=== PATIENT | female | born 1960 | race Caucasian/White ===

== ENCOUNTER 2016-07-26 11:05 | Inpatient (IN) | payer OTHER, MEDICAID ==
--- NOTE | 2016-07-26 11:17 | EDPHY ---
H & P Stated Complaint: High blood sugar Source: Patient, EMS, alf records - Medical/Surgical History Hx Diabetes: Yes - Social History Smoking Status: Former smoker Time Seen by Provider: 07/26/16 11:06 HPI/ROS: CHIEF COMPLAINT: High blood sugar HISTORY OF PRESENT ILLNESS: This is a 56-year-old female brought in by ambulance from alf. The EMS reports nursing facility stated patient missed dialysis yesterday, high blood sugar this morning glucometer at nursing facility read " high", 10 units of regular insulin at 0900. EMS arrival blood glucose fingerstick at 10:52 am read (521). Patient states that she just has not been feeling very well since yesterday with decreased PO intake. Denies any chest pain or shortness of breath. Patient states she still is able to produce urine with her renal failure. Patient states her normal days for dialysis are Sunday REVIEW OF SYSTEMS: Constitutional: Chills, decreased PO intake, generalized weakness Eyes: No visual changes ENT: No sore throat. Respiratory: No shortness of breath Cardiac: No chest pain Gastrointestinal: Positive nausea Genitourinary: No hematuria Musculoskeletal: No back pain, rib pain due to fracture Skin: No rash Neurological: No headache (Dona Mari) - Physical Exam Exam: General Appearance: Nontoxic-appearing Eyes: Pupils equal and round no pallor or injection. ENT, Mouth: Mucous membranes dry Respiratory: There are no retractions, lungs are clear to auscultation. Cardiovascular: Regular rate and rhythm. Dialysis port noted no erythema Gastrointestinal: Abdomen is soft and nontender, no masses Neurological: Awake, slow to answer questions, no distress Skin: Warm and dry, no rashes. No diaphoresis Musculoskeletal: Neck is supple nontender. Right-sided rib tenderness Extremities: Fistula noted to left upper extremity, some ecchymoses noted. Positive CMS intact Psychiatric: Patient is oriented X 3, there is no agitation. (Dona Mari) Constitutional: Initial Vital Signs Temperature (C) 36.4 C 07/26/16 11:17 Heart Rate 70 07/26/16 11:17 Respiratory Rate 16 07/26/16 11:17 Blood Pressure 117/64 07/26/16 11:17 O2 Sat (%) 99 07/26/16 11:17 O2 Delivery Mode Room Air Allergies/Adverse Reactions: meperidine HCl [From Demerol] Allergy (Intermediate, Verified 09/01/13 15:37) PARANOID, HALLUCINATIONS sulfamethoxazole [From Bactrim] Allergy (Verified 07/26/16 11:27) trimethoprim [From Bactrim] Allergy (Verified 07/26/16 11:27) Home Medications: Medication Instructions Recorded Amlodipine Besylate [Norvasc] 5 mg PO DAILY 07/26/16 Aspirin EC [Aspirin EC 81 mg (*)] 81 mg PO DAILY 07/26/16 Calcium Acetate [Phoslo (*)] 667 mg PO TID 07/26/16 Calcium Carbonate 600 mg PO TIDMEAL 07/26/16 Escitalopram Oxalate [Lexapro] 20 mg PO DAILY 07/26/16 Famotidine [Pepcid 20 MG (*)] 20 mg PO DAILY 07/26/16 Ferrous Sulfate [Ferrous Sulf 325 325 mg PO DAILY 07/26/16 MG (*)] Herbals/Supplements -Info Only 1 ea PO DAILY 07/26/16 Insulin Glargine [Lantus 100 4 units SC DAILY 07/26/16 UNITS/ML (*)] Insulin Glargine [Lantus 100 6 units SC HS 07/26/16 UNITS/ML (*)] Insulin Lispro [Humalog] 6 unit SQ BID@07,12 07/26/16 Insulin Lispro [Humalog] 8 unit SQ DAILY@1800 07/26/16 Losartan Potassium [Cozaar] 100 mg PO DAILY 07/26/16 Metoprolol Tartrate [Lopressor 100 100 mg PO BID 07/26/16 mg (*)] Ondansetron Odt [Zofran Odt 4 mg 4 mg PO Q4 PRN 07/26/16 (*)] Polyethylene Glycol 3350 [Miralax 17 gm PO DAILY PRN 07/26/16 17 gm (*)] Pregabalin [Lyrica 50mg (*)] 50 mg PO HS 07/26/16 Simvastatin [Zocor] 20 mg PO HS 07/26/16 hydrALAZINE [Apresoline 10 mg (*)] 35 mg PO TID 07/26/16 levETIRAcetam [Keppra 500 mg (*)] 500 mg PO DAILY 07/26/16 traMADol [Ultram 50 mg (*)] 50 mg PO Q6 PRN 07/26/16 Medical Decision Making - Diagnostics EKG Interpretation: 12 lead EKG is interpreted in Trace master View by emergency department physician. (Edita Agarwal) ED Course/Re-evaluation: Discussed plan of care: IV, CBC, Chem 7, magnesium, phosphorus, EKG, 1405: Spoke with Yanely RN at nursing facility, the patient's polarity tester is Dr. Polanco with [facility]. 1410: Spoke with Dr. Sim with [facility], patient will be set up for dialysis in the morning 1425: Spoke with Dr. Perez, patient admitted ICU on insulin drip, DKA protocol. Patient aware of admitting status (Dona Mari) Differential Diagnosis: Differential diagnosis considered but not limited to altered mental status due to cva, [place], and hypertensive crisis (Dona Mari) Other Provider: This patient was evaluated and managed by the nurse practitioner in conjunction with me. My history and physical exam findings are as follows: This is a 56- year-old resident of [facility] who arrives by ambulance. She has a history of end-stage renal disease and missed yesterday's dialysis, also hypertension, diabetes mellitus, hyperlipidemia, and depression. She was noted to be hyperglycemic at [facility] this morning was transferred to the emergency department. Blood sugars here have been elevated and she is acidotic. General Appearance: Slightly sleepy but arouses to voice. Vital signs reviewed. Eyes: Pupils equal and round, no conjunctival injection, no discharge. Anicteric. ENT, Mouth: Mucous membranes are dry, no oropharyngeal erythema or edema. Neck: No lymphadenopathy, supple. Respiratory: Lungs are clear to auscultation; no wheezes, rales, or rhonchi. Cardiovascular: Regular rate and rhythm; 2/6 systolic murmur, rub, or gallop. Gastrointestinal: Abdomen is soft and nontender, no masses or organomegaly, bowel sounds normal. Skin: Warm and dry, no rashes on exposed skin, normal color. Back: Nontender to palpation over the thoracolumbar spine. No CVAT. Extremities: No lower extremity edema, no calf tenderness or swelling. Neurological: Sleepy but arouses easily. JESSICA. EOMI. Facial expression symmetric. Tongue midline. Moving all four extremities easily and equally. Psychiatric: Flat affect. I reviewed laboratory findings. In the emergency department she was started on an insulin drip. I think that her mild somnolence is secondary hyperglycemia and her abnormal kidney function. I have not found evidence of infection. She Has not complaining of chest pain. She is not short of breath and has a normal lung exam. She is being admitted to the ICU on an insulin drip. She missed yesterday's dialysis and dialysis is being arranged for her. (Edita Agarwal) - Data Points Laboratory Results: Laboratory Results 07/26/16 11:25 07/26/16 13:14 Medications Given: Discontinued Medications Calcium Acetate (Phoslo) 667 mg PO TID LANCE Stop: 01/22/17 21:59 Last Admin: 07/27/16 11:36 Dose: Not Given Sodium Chloride (Ns) 1,000 mls @ 0 mls/hr IV ONCE ONE PRN Reason: Wide Open Stop: 07/26/16 13:48 Last Admin: 07/26/16 14:19 Dose: 1,000 mls Insulin Human Regular 100 unit / Miscellaneous Medication 1 ea/ Sodium Chloride 101 mls @ 2 mls/hr IV EDNOW ONE PRN Reason: Protocol Stop: 07/28/16 16:16 Last Admin: 07/26/16 19:25 Dose: Not Given Insulin Human Regular 100 unit (/ Sodium Chloride) 101 mls @ 2 mls/hr IV CONT LANCE Stop: 01/22/17 14:59 Last Admin: 07/26/16 15:39 Dose: 101 mls Insulin Glargine (Lantus Syringe) 4 units SC HS LANCE Stop: 01/23/17 20:59 Last Admin: 07/28/16 22:27 Dose: 4 units Insulin Human Lispro (Humalog Lispro) 2 - 10 unit SC TIDMEAL LANCE PRN Reason: Protocol Stop: 01/23/17 07:59 Last Admin: 07/27/16 11:36 Dose: Not Given Insulin Human Regular (Humulin R) 10 unit IVP EDNOW ONE Stop: 07/26/16 13:48 Last Admin: 07/26/16 14:19 Dose: 10 units Ondansetron HCl (Zofran) 4 mg IVP EDNOW ONE Stop: 07/26/16 12:53 Last Admin: 07/26/16 13:20 Dose: 4 mg Sodium Bicarbonate (Sodium Bicarbonate) 50 meq IVP Q8 LANCE Stop: 07/27/16 14:01 Last Admin: 07/27/16 14:18 Dose: Not Given Departure - Departure Disposition: [facility]
--- NOTE | 2016-07-26 11:36 | CPEKG ---
Heart Rate: 70 RR Interval: 857 P-R Interval: 148 QRSD Interval: 88 QT Interval: 456 QTC Interval: 493 P [place]: 41 QRS [place]: 58 T Wave [place]: 53 EKG Severity - ABNORMAL ECG - EKG Impression: SINUS RHYTHM EKG Impression: ST DEPRESSION, CONSIDER ISCHEMIA, LAT LEADS EKG Impression: MINIMAL ST ELEVATION, INFERIOR LEADS EKG Impression: BORDERLINE PROLONGED QT INTERVAL Electronically Signed By: Edita Agarwal 26-Jul-2016 15:19:21
[2016-07-26 11:44] LABS: % IMMATURE GRANULYOCYTES 0.2 % (0.0-1.1); ABSOLUTE IMMATURE GRANULOCYTES 0.01 10^3/uL (0.00-0.10); ADD DIFF? NO; ADD MORPH? NO; ADD SCAN? NO; ATYPICAL LYMPHOCYTE FLAG 0 (0-99); FRAGMENT RBC FLAG 0 (0-99); HEMATOCRIT 38.6 % (38.0-47.0); HEMOGLOBIN 12.7 g/dL (12.6-16.3); LEFT SHIFT FLG 0 (0-99); LIPEMIA HEMOLYSIS FLAG 80 (0-99); MEAN CELL HEMOGLOBIN 31.3 pg (27.9-34.1); MEAN CELL HEMOGLOBIN CONCENTR. 32.9 g/dL (32.4-36.7); MEAN CELL VOLUME 95.1 fL (81.5-99.8); MEAN PLATELET VOLUME 9.8 fL (8.7-11.7); PLATELET CLUMPS FLAG 0 (0-99); PLATELET COUNT 278 10^3/uL (150-400); RED BLOOD CELL COUNT 4.06 10^6/uL (4.18-5.33); RED CELL DISTRIBUTION WIDTH 15.3 % (11.5-15.2)
[2016-07-26] MEDS ORDERED: ONDANSETRON 4 MG/2 ML VIAL IVP ONE (12:52)
[2016-07-26 13:25] LABS: ANION GAP 13 mEq/L (8-16); CALCIUM 9.4 mg/dL (8.5-10.4); CARBON DIOXIDE 16 mEq/l (22-31); CHLORIDE 97 mEq/L (97-110); GLOMERULAR FILTRATION RATE 5; GLUCOSE 423 mg/dL (70-100); MAGNESIUM 2.7 mg/dL (1.6-2.3); POTASSIUM 5.7 mEq/L (3.5-5.2); SODIUM 126 mEq/L (134-144)
[2016-07-26 13:33] LABS: CREATININE 8.4 mg/dL (0.6-1.0)
[2016-07-26] MEDS ORDERED: NS 1,000 ML IV ONE (13:47)
[2016-07-26] MEDS ORDERED: INSULIN REGULAR HUMAN 100 UNIT, COSIGN. REQUIRED 1 EA in NS 100 ML IV ONE (13:47)
[2016-07-26] MEDS ORDERED: INSULIN REGULAR HUMAN 100 UNIT/ML IVP ONE (13:47)
[2016-07-26] MEDS ORDERED: ACETAMINOPHEN 325 MG TAB PO PRN (14:40)
[2016-07-26] MEDS ORDERED: ONDANSETRON DISINTEGRATING 4 MG TAB PO PRN (14:40)
[2016-07-26] MEDS ORDERED: INSULIN REGULAR HUMAN 100 UNIT in NS 100 ML IV SCH (15:00)
--- NOTE | 2016-07-26 15:17 | GHP ---
[f rep st] HISTORY AND PHYSICAL DATE OF ADMISSION: 07/26/2016 CHIEF COMPLAINT: Hyperkalemia. HISTORY OF PRESENT ILLNESS: This is a 56-year-old female who is brought in from [facility] due to hyperglycemia. She is a poor historian. She is quite somnolent. She tells me that she has been sick for the past few days, vomited (she cannot tell me how many times), and has had some diarrhea and some abdominal pain. Apparently her glucose was checked at [facility], and it was greater than 500. She received 10 units of regular insulin IV. Recheck was 487. Her initial potassium was 6.1. She was thus transported to the emergency department. PAST MEDICAL/SURGICAL HISTORY: 1. End-stage renal disease. 2. Diabetes. 3. Hypertension. 4. Depression. 5. Possible seizure disorder. 6. Hyperlipidemia. MEDICATIONS: Please see medication reconciliation. ALLERGIES: Meperidine, sulfamethoxazole, trimethoprim. FAMILY HISTORY: No renal disease. SOCIAL HISTORY: She lives at [facility]. She is unable to tell me how long she has lived here. She says she does not drink or smoke. REVIEW OF SYSTEMS: 10-point review of systems is conducted and is negative except per HPI. PHYSICAL EXAMINATION: VITAL SIGNS: Blood pressure 117/64, heart rate 70, respiration rate 16, satting 99% on room air, temperature 36.4. GENERAL: The patient is a somnolent female who is arousable but falls asleep when I am talking to her. HEENT: Normocephalic, atraumatic. CARDIOVASCULAR: Regular rate and rhythm. She has a prominent 2/6 systolic murmur. PULMONARY: Lungs clear to auscultation bilaterally. She does not have any increased work of breathing. ABDOMEN: Soft, nontender, nondistended. SKIN: No rash. : No Blake. NEUROLOGIC: Alert and oriented x3 when she wakes up. Her cranial nerves 2-12 are intact. She has motor intact in all 4 extremities. She does not have a focal neurologic exam. PSYCHIATRIC: Normal mood and affect. CHEST : A left-sided tunneled catheter in place. LABORATORY DATA: Sodium 126, potassium 5.7, bicarb is 16, creatinine 8.4, glucose is 423. CBC is relatively unremarkable. DATA: 1. I discussed this with Dona Mari in the emergency department. Will admit to the ICU for an insulin drip. 2. EKG, which I personally viewed and interpreted, shows sinus rhythm. There is scooped ST depression in leads I and L. IMPRESSION: This is a 56-year-old who presents with encephalopathy and hyperglycemia. 1. Encephalopathy: Unclear what the etiology of this is. Also unclear what her baseline is, though I will assume this is acute. May be due to her metabolic abnormalities. She missed dialysis yesterday. Will do basic infectious and ischemic workup here. Will get a chest x-ray. Check troponins. Will also get a non-contrast head CT. 2. Hyperglycemia: She is also acidotic. I do not really think this is diabetic ketoacidosis; the acidosis may be from her renal disease. Agree with insulin drip and frequent finger stick glucose checks. I will not place her on the diabetic ketoacidosis protocol, as this would clearly volume overload her given her dialysis. 3. Hyperkalemia: Likely due to acidosis and missing dialysis yesterday. Dr. Higgins has been consulted. Plan is to dialyze her tomorrow. She is getting insulin currently. Will give her bicarb q.8. Will check q.4 basic metabolic panels. 4. Abnormal ECG: will trend trops. No chest pain now. 5. End-stage renal disease: Dialysis tomorrow. She missed yesterday. 6. Diabetes mellitus: I assume this is type 2, though it is unclear. Insulin as above. She takes approximately 20-25 units total daily at [facility]. 7. Hypertension: Will continue her antihypertensives. /[id number]/MODL MTDD
[2016-07-26] MEDS ORDERED: ALTEPLASE 2 MG VIAL IVP PRN (17:00)
[2016-07-26] MEDS ORDERED: POLYETHYLENE GLYCOL 3350 17 GM PKT PO PRN (17:03)
[2016-07-26] MEDS: ONDANSETRON 4 MG/2 ML VIAL IVP PRN (17:38)
[2016-07-26] MEDS: CALCIUM CARBONATE 500 MG TAB PO SCH (17:56)
[2016-07-26] MEDS ORDERED: CALCIUM CARBONATE 600 MG PO SCH (18:00)
[2016-07-26] MEDS ORDERED: IOPAMIDOL (ISOVUE-300) 100 ML BTL IV ONE (18:19)
[2016-07-26 19:01] LABS: ALANINE AMINOTRANSFERASE 27 IU/L (9-52); ALBUMIN 3.2 g/dL (3.5-5.0); ALKALINE PHOSPHATASE 98 IU/L (38-126); ANION GAP 11 mEq/L (8-16); ASPARTATE AMINOTRANSFERASE 16 IU/L (14-46); BILIRUBIN,TOTAL 0.5 mg/dL (0.1-1.4); CALCIUM 8.9 mg/dL (8.5-10.4); CARBON DIOXIDE 16 mEq/l (22-31); CHLORIDE 104 mEq/L (97-110); GLOMERULAR FILTRATION RATE 5; GLUCOSE 83 mg/dL (70-100); POTASSIUM 5.2 mEq/L (3.5-5.2); SODIUM 131 mEq/L (134-144); TOTAL PROTEIN 6.3 g/dL (6.3-8.2)
[2016-07-26 19:05] LABS: CREATININE 7.8 mg/dL (0.6-1.0)
[2016-07-26] MEDS: METOPROLOL TARTRATE 100 MG TAB PO SCH ×2 (20:52→22:36)
[2016-07-26] MEDS: CALCIUM ACETATE 667 MG CAP PO SCH ×2 (20:52→22:35)
[2016-07-26] MEDS: PREGABALIN 50 MG CAP PO SCH ×2 (20:53→22:36)
[2016-07-26] MEDS: HEPARIN 5,000 UNIT/0.5 ML SYR SC SCH (20:53)
[2016-07-26] MEDS: ATORVASTATIN CALCIUM 10 MG TAB PO SCH ×2 (20:53→22:34)
[2016-07-26] MEDS: SODIUM BICARBONATE 50 MEQ/50 ML SYR IVP SCH (20:54)
[2016-07-26] MEDS: hydrALAZINE 10 MG TAB PO SCH ×2 (20:54→22:36)
[2016-07-26] MEDS ORDERED: NON-FORMULARY NEW DRUG (Simvastatin [Zocor] 20 MG) PO SCH (21:00)
[2016-07-26] MEDS ORDERED: D50W 25 GM/50 ML SYR IVP ONE (21:23)
[2016-07-26] MEDS ORDERED: PARAMETERS MISC PRN (21:40)
[2016-07-26] MEDS: D50W 25 GM/50 ML SYR IVP PRN (22:38)
[2016-07-27 02:04] LABS: ANION GAP 15 mEq/L (8-16); CALCIUM 8.8 mg/dL (8.5-10.4); CARBON DIOXIDE 16 mEq/l (22-31); CHLORIDE 104 mEq/L (97-110); GLOMERULAR FILTRATION RATE 5; GLUCOSE 171 mg/dL (70-100); POTASSIUM 5.5 mEq/L (3.5-5.2); SODIUM 135 mEq/L (134-144)
[2016-07-27 02:14] LABS: CREATININE 8.4 mg/dL (0.6-1.0)
[2016-07-27 05:09] LABS: % IMMATURE GRANULYOCYTES 0.2 % (0.0-1.1); ABSOLUTE IMMATURE GRANULOCYTES 0.01 10^3/uL (0.00-0.10); ADD DIFF? NO; ADD MORPH? NO; ADD SCAN? NO; ATYPICAL LYMPHOCYTE FLAG 10 (0-99); FRAGMENT RBC FLAG 0 (0-99); HEMATOCRIT 34.3 % (38.0-47.0); HEMOGLOBIN 10.7 g/dL (12.6-16.3); LEFT SHIFT FLG 0 (0-99); LIPEMIA HEMOLYSIS FLAG 80 (0-99); MEAN CELL HEMOGLOBIN 29.8 pg (27.9-34.1); MEAN CELL HEMOGLOBIN CONCENTR. 31.2 g/dL (32.4-36.7); MEAN CELL VOLUME 95.5 fL (81.5-99.8); MEAN PLATELET VOLUME 9.5 fL (8.7-11.7); PLATELET CLUMPS FLAG 0 (0-99); PLATELET COUNT 254 10^3/uL (150-400); RED BLOOD CELL COUNT 3.59 10^6/uL (4.18-5.33); RED CELL DISTRIBUTION WIDTH 15.2 % (11.5-15.2)
[2016-07-27 05:31] LABS: ALANINE AMINOTRANSFERASE 29 IU/L (9-52); ALKALINE PHOSPHATASE 102 IU/L (38-126); ANION GAP 13 mEq/L (8-16); ASPARTATE AMINOTRANSFERASE 13 IU/L (14-46); BILIRUBIN,TOTAL 0.5 mg/dL (0.1-1.4); CALCIUM 8.7 mg/dL (8.5-10.4); CARBON DIOXIDE 16 mEq/l (22-31); CHLORIDE 102 mEq/L (97-110); GLOMERULAR FILTRATION RATE 5; GLUCOSE 259 mg/dL (70-100); POTASSIUM 5.8 mEq/L (3.5-5.2); SODIUM 131 mEq/L (134-144); TOTAL PROTEIN 5.9 g/dL (6.3-8.2)
[2016-07-27 05:44] LABS: CREATININE 8.4 mg/dL (0.6-1.0)
[2016-07-27] MEDS ORDERED: PARAMETERS MISC PRN (05:49)
[2016-07-27] MEDS ORDERED: D50W 25 GM/50 ML SYR IVP PRN ×2 (05:49→16:10)
[2016-07-27] MEDS: INSULIN LISPRO 100 UNIT/1 ML VIAL STANDARD SC SCH ×2 (06:27→11:36)
[2016-07-27] MEDS: HEPARIN 5,000 UNIT/0.5 ML SYR SC SCH ×3 (06:27→21:10)
[2016-07-27] MEDS: SODIUM BICARBONATE 50 MEQ/50 ML SYR IVP SCH ×2 (06:38→14:18)
[2016-07-27] MEDS ORDERED: NON-FORMULARY NEW DRUG (Escitalopram Oxalate [Lexapro] 20 MG) PO SCH (09:00)
[2016-07-27] MEDS: D50W 25 GM/50 ML SYR IVP PRN (09:57)
--- NOTE | 2016-07-27 10:24 | SOAPPROG ---
SOAP Progress Note Assessment/Plan: Assessment:Plan: ESRD-stable on hd -plan for next Hd on Sunday -typically is Sa at [facility] [phone] Access-via tunneled catheter -resting LUE AVF DKA-recurrent theme for this patient in spite of being in nursing facility -CPM -this often coincides with some sort of infection -history of recurrent C diff -avoid empiric use of broad-spectrum abx Neuro-appears to be a little encephalopathic from recent events -she had a prolonged period of encephalopathy that slowly cleared in the past -I would expect her to do the same this time as her sugars stabilize Dispo-pending 07/27/16 10:24 Subjective: stable on dialysis Objective: Vital Signs Temp Pulse Resp BP Pulse Ox 36.6 C 74 12 165/84 H 98 07/27/16 07:47 07/27/16 07:47 07/27/16 07:47 07/27/16 07:47 07/27/16 07:47 Laboratory Results 07/27/16 04:55 07/27/16 04:55 07/26/16 07/27/16 07/28/16 05:59 05:59 05:59 Intake Total 1504 Balance 1504 Physical Exam - Physical Exam General Appearance: alert, no apparent distress EENT: normal ENT inspection Neck: normal inspection Respiratory: lungs clear, normal breath sounds, No respiratory distress Cardiac/Chest: regular rate, rhythm Abdomen: normal bowel sounds, non-tender, soft Extremities: swelling (trace) ICD10 Worksheet Patient Problems: Problems Problem Status Onset ESRD (end stage renal disease) Acute - ICD10 Problem Qualifiers (1) ESRD (end stage renal disease)
--- NOTE | 2016-07-27 11:31 | HOSPPROG ---
Hospitalist Progress Note Assessment/Plan: #Metabolic encephalopathy: related to hyperglycemia. No neuro deficits on my exam #ESRD: HD today #Hyperglycemia: was on insulin gtt outpatient. Appears to have had several hospitalizations due to DKA #Hyperkalemia: HD today #Hyponatremia: resolved #Accelerated HTN: has been off meds for past 2 days. Restart home meds #Metabolic anion gap acidosis: due to hyperglycemia/ESRD #Diet: awaiting speech eval #DVT ppx: SQH #Disp: warrant inpt admission with acute hyperglycemia, hyperkalemia Subjective: no pain, SOB Objective: Vital Signs Temp Pulse Resp BP Pulse Ox 37.3 C 84 14 196/86 H 94 07/27/16 11:28 07/27/16 11:28 07/27/16 11:28 07/27/16 11:28 07/27/16 11:28 Laboratory Results 07/27/16 04:55 07/27/16 04:55 07/26/16 07/27/16 07/28/16 05:59 05:59 05:59 Intake Total 1504 Balance 1504 - Physical Exam Constitutional: no apparent distress Eyes: PERRL (small pupils, round, reactive) Ears, Nose, Mouth, Throat: hearing normal Cardiovascular: regular rate and rhythym Respiratory: no respiratory distress Gastrointestinal: normoactive bowel sounds, soft, non-tender abdomen Genitourinary: no bladder fullness Musculoskeletal: full muscle strength (alert to place, year, not date), other Neurologic: CN II-XII Intact, other (follows commands: closes eyes, grasps hands ) ICD10 Worksheet Patient Problems: Problems Problem Status Onset ESRD (end stage renal disease) Acute
[2016-07-27] MEDS ORDERED: hydrALAZINE 20 MG/ML VIAL IVP PRN (11:32)
[2016-07-27] MEDS: CALCIUM ACETATE 667 MG CAP PO SCH ×2 (11:36→19:09)
[2016-07-27] MEDS: METOPROLOL TARTRATE 100 MG TAB PO SCH ×2 (12:20→21:11)
[2016-07-27] MEDS: CALCIUM CARBONATE 500 MG TAB PO SCH ×3 (12:20→19:09)
[2016-07-27] MEDS: levETIRAcetam 500 MG TAB PO SCH (12:21)
[2016-07-27] MEDS: amLODIPine BESYLATE 5 MG TAB PO SCH (12:21)
[2016-07-27] MEDS: ESCITALOPRAM OXALATE 10 MG TAB PO SCH (12:22)
[2016-07-27] MEDS: ASPIRIN EC 81 MG TAB PO SCH (12:22)
[2016-07-27] MEDS: FAMOTIDINE 20 MG TAB PO SCH (12:22)
[2016-07-27] MEDS: FERROUS SULFATE 325 MG TAB PO SCH (12:23)
[2016-07-27] MEDS: hydrALAZINE 10 MG TAB PO SCH ×3 (12:25→21:10)
[2016-07-27] MEDS ORDERED: HEPARIN 50,000 UNIT/10 ML VIAL ONE (16:49)
[2016-07-27] MEDS: INSULIN LISPRO 100 UNIT/ML SC SCH (19:09)
[2016-07-27] MEDS: ATORVASTATIN CALCIUM 10 MG TAB PO SCH (21:11)
[2016-07-27] MEDS: PREGABALIN 50 MG CAP PO SCH (21:11)
[2016-07-27] MEDS: INSULIN GLARGINE 100 UNITS/ML SYRINGE SC SCH (21:22)
[2016-07-28] MEDS: TEMAZEPAM 15 MG CAP PO PRN ×2 (00:26→23:05)
[2016-07-28] MEDS: traMADol 50 MG TAB PO PRN ×2 (00:26→23:04)
[2016-07-28 05:26] LABS: HEMATOCRIT 34.1 % (38.0-47.0); HEMOGLOBIN 11.2 g/dL (12.6-16.3); MEAN CELL HEMOGLOBIN 30.7 pg (27.9-34.1); MEAN CELL HEMOGLOBIN CONCENTR. 32.8 g/dL (32.4-36.7); MEAN CELL VOLUME 93.4 fL (81.5-99.8); RED BLOOD CELL COUNT 3.65 10^6/uL (4.18-5.33); RED CELL DISTRIBUTION WIDTH 14.8 % (11.5-15.2)
[2016-07-28] MEDS: HEPARIN 5,000 UNIT/0.5 ML SYR SC SCH ×3 (05:50→22:05)
[2016-07-28] MEDS: INSULIN GLARGINE 100 UNITS/ML SYRINGE SC SCH ×2 (08:30→22:27)
[2016-07-28] MEDS: INSULIN LISPRO 100 UNIT/ML SC SCH ×4 (08:31→22:27)
[2016-07-28] MEDS: amLODIPine BESYLATE 5 MG TAB PO SCH (08:40)
[2016-07-28] MEDS: hydrALAZINE 10 MG TAB PO SCH ×3 (08:40→22:03)
[2016-07-28] MEDS: ONDANSETRON 4 MG/2 ML VIAL IVP PRN (08:47)
[2016-07-28] MEDS: CALCIUM CARBONATE 500 MG TAB PO SCH ×3 (08:51→18:05)
[2016-07-28] MEDS: CALCIUM ACETATE 667 MG CAP PO SCH ×3 (08:51→18:05)
[2016-07-28] MEDS: levETIRAcetam 500 MG TAB PO SCH (08:52)
[2016-07-28] MEDS: ESCITALOPRAM OXALATE 10 MG TAB PO SCH (08:53)
[2016-07-28] MEDS: METOPROLOL TARTRATE 100 MG TAB PO SCH ×2 (08:54→22:00)
[2016-07-28] MEDS: FAMOTIDINE 20 MG TAB PO SCH (08:55)
[2016-07-28] MEDS: FERROUS SULFATE 325 MG TAB PO SCH (08:55)
[2016-07-28] MEDS: ASPIRIN EC 81 MG TAB PO SCH (08:55)
--- NOTE | 2016-07-28 11:16 | SOAPPROG ---
[place] Progress Note Assessment/Plan: Assessment: 1)ESRD- HD TTS schedule -resting AVF, using TDC for now -plan HD tomorrow (labs not drawn today so I ordered them- please call me if K > 5.5) 2)Recurrent DKA -off insulin gtt, hopefully to floor soon 3)Anemia of CKD- Hb at goal 4)MBD Of CKD- renal diet when taking po, check phos am labs 5)Metabolic encephalopathy- better today I discussed with RN I am national sales trainer for our group for the weekend [phone] 07/28/16 12:24 Subjective: Working with speech on swallow eval,mental status better. Recognized me and able to tell me about her AVF. No sob, n/v. Off insulin gtt, possibly to floor soon. Objective: Vital Signs Temp Pulse Resp BP Pulse Ox 37.0 C 73 93 H 173/72 H 18 L 07/28/16 08:00 07/28/16 08:00 07/28/16 08:00 07/28/16 08:00 07/28/16 08:00 Laboratory Results 07/28/16 05:18 07/27/16 04:55 07/27/16 07/28/16 07/29/16 05:59 05:59 05:59 Intake Total 1504 120 Balance 1504 120 Physical Exam - Physical Exam General Appearance: no apparent distress, other (sitting in chair, chronically ill appearing) EENT: other (mmm) Neck: supple, other ([facility] TDC in place) Respiratory: lungs clear Cardiac/Chest: regular rate, rhythm, other (no rub) Abdomen: normal bowel sounds, non-tender, soft Skin: warm/dry Extremities: other (no edema, LUE AVF +thrill/bruit) Neuro/Psych: alert (follows commands, able to answer questions ok for me) ICD10 Worksheet Patient Problems: Problems Problem Status Onset ESRD (end stage renal disease) Acute
[2016-07-28 13:19] LABS: ALBUMIN 3.3 g/dL (3.5-5.0); ANION GAP 9 mEq/L (8-16); CARBON DIOXIDE 25 mEq/l (22-31); CHLORIDE 95 mEq/L (97-110); CREATININE 5.3 mg/dL (0.6-1.0); GLOMERULAR FILTRATION RATE 8; GLUCOSE 276 mg/dL (70-100); POTASSIUM 4.6 mEq/L (3.5-5.2); SODIUM 129 mEq/L (134-144)
--- NOTE | 2016-07-28 15:06 | HOSPPROG ---
Hospitalist Progress Note Assessment/Plan: #Metabolic encephalopathy: improved today. Related to hyperglycemia; no neuro deficits on my exam. Per , these episodes not unusual with hyperglycemia #ESRD: HD per renal #DKA: off insulin gtt. Restarted home glargine at lower dose and low-dose lispro to avoid lows. May need uptitration #Hyperkalemia: resolved with HD #Hyponatremia: resolved #Accelerated HTN: resumed home meds #Metabolic anion gap acidosis: due to hyperglycemia/ESRD #Diet: renal #DVT ppx: SQH #Disp: warrant inpt admission with acute hyperglycemia, hyperkalemia. Transfer to floor Subjective: feels less confused today Objective: Vital Signs Temp Pulse Resp BP Pulse Ox 37.0 C 73 93 H 173/72 H 18 L 07/28/16 08:00 07/28/16 08:00 07/28/16 08:00 07/28/16 08:00 07/28/16 08:00 Laboratory Results 07/28/16 05:18 07/28/16 12:20 07/27/16 07/28/16 07/29/16 05:59 05:59 05:59 Intake Total 1504 120 Balance 1504 120 - Physical Exam Constitutional: no apparent distress Eyes: PERRL Ears, Nose, Mouth, Throat: moist mucous membranes Cardiovascular: regular rate and rhythym Respiratory: no respiratory distress Gastrointestinal: normoactive bowel sounds Genitourinary: no bladder fullness Skin: warm Musculoskeletal: other (right foot with toe amputation) Neurologic: CN II-XII Intact (alert to year, month, but not place), other ICD10 Worksheet Patient Problems: Problems Problem Status Onset ESRD (end stage renal disease) Acute
[2016-07-28] MEDS: PREGABALIN 50 MG CAP PO SCH (22:02)
[2016-07-28] MEDS: ATORVASTATIN CALCIUM 10 MG TAB PO SCH (22:03)
[2016-07-29 06:00] LABS: ALBUMIN 2.9 g/dL (3.5-5.0); ANION GAP 9 mEq/L (8-16); CALCIUM 9.1 mg/dL (8.5-10.4); CARBON DIOXIDE 25 mEq/l (22-31); CHLORIDE 97 mEq/L (97-110); CREATININE 5.9 mg/dL (0.6-1.0); GLOMERULAR FILTRATION RATE 7; GLUCOSE 213 mg/dL (70-100); SODIUM 131 mEq/L (134-144)
[2016-07-29] MEDS: HEPARIN 5,000 UNIT/0.5 ML SYR SC SCH ×3 (06:33→22:01)
[2016-07-29] MEDS: INSULIN LISPRO 100 UNIT/ML SC SCH ×3 (09:03→17:33)
[2016-07-29] MEDS: FERROUS SULFATE 325 MG TAB PO SCH (09:11)
[2016-07-29] MEDS: CALCIUM ACETATE 667 MG CAP PO SCH ×3 (09:11→17:33)
[2016-07-29] MEDS: INSULIN GLARGINE 100 UNITS/ML SYRINGE SC SCH ×2 (09:11→22:30)
[2016-07-29] MEDS: levETIRAcetam 500 MG TAB PO SCH (10:53)
[2016-07-29] MEDS: FAMOTIDINE 20 MG TAB PO SCH (10:53)
[2016-07-29] MEDS: CALCIUM CARBONATE 500 MG TAB PO SCH ×3 (10:54→17:33)
[2016-07-29] MEDS: ASPIRIN EC 81 MG TAB PO SCH (10:54)
[2016-07-29] MEDS: ESCITALOPRAM OXALATE 10 MG TAB PO SCH (10:54)
[2016-07-29] MEDS: amLODIPine BESYLATE 5 MG TAB PO SCH (10:59)
[2016-07-29] MEDS ORDERED: HEPARIN 50,000 UNIT/10 ML VIAL ONE (13:29)
[2016-07-29] MEDS: METOPROLOL TARTRATE 100 MG TAB PO SCH ×2 (14:38→22:01)
[2016-07-29] MEDS: hydrALAZINE 10 MG TAB PO SCH ×3 (14:38→21:59)
--- NOTE | 2016-07-29 14:54 | SOAPPROG ---
[facility] Progress Note Assessment/Plan: Assessment: 1)ESRD- HD TTS schedule -resting AVF, using TDC for now -had HD today with 2kg UF, tolerated well- next run likely Sunday but will assess daily for need 2)Recurrent DKA -off insulin gtt, sugars improved 3)Anemia of CKD- Hb at goal 4)MBD Of CKD- renal diet, Ca Acetate binder resumed 5)Metabolic encephalopathy- resolved 6)Diarrhea- stool studies pending [facility] I am partner integration planner for our group for the weekend [phone] 07/29/16 15:33 Subjective: Feels much better today but having more diarrhea. No n/v, abd pain, fevers. Had HD earlier-2kg UF and tolerated well. Objective: Vital Signs Temp Pulse Resp BP Pulse Ox 37.0 C 75 15 145/69 H 100 07/28/16 16:00 07/28/16 23:53 07/28/16 23:53 07/28/16 23:53 07/28/16 23:53 Laboratory Results 07/28/16 05:18 07/29/16 05:30 07/28/16 07/29/16 07/30/16 05:59 05:59 05:59 Intake Total 120 150 Output Total 800 Balance 120 -650 Physical Exam - Physical Exam General Appearance: alert, no apparent distress EENT: other (mmm) Neck: supple, other (TDC IJ c/d/i) Respiratory: lungs clear Cardiac/Chest: regular rate, rhythm, other (no rub) Abdomen: normal bowel sounds, non-tender, soft Skin: warm/dry Extremities: other (no edema. LUE AVF +thrill/bruit) Neuro/Psych: alert, oriented x 3 ICD10 Worksheet Patient Problems: Problems Problem Status Onset ESRD (end stage renal disease) Acute
--- NOTE | 2016-07-29 14:58 | HOSPPROG ---
Hospitalist Progress Note Assessment/Plan: #Metabolic encephalopathy * due to hyperglycemia * resolved #ESRD: HD per renal #DKA: off insulin gtt * type 2 diabetes uncontrolled * blood sugars have been quite labile the last year * has dropped before * will continue on home dose not make any changes of insulin * diarrhea * pretty severe * will get GI panel * keep in hospital 1 more day #Hyperkalemia: resolved with HD #Hyponatremia: resolved #Accelerated HTN: resumed home meds #Metabolic anion gap acidosis: due to hyperglycemia/ESRD #Diet: renal Subjective: Having significant diarrhea Objective: Vital Signs Temp Pulse Resp BP Pulse Ox 37.0 C 75 15 145/69 H 100 07/28/16 16:00 07/28/16 23:53 07/28/16 23:53 07/28/16 23:53 07/28/16 23:53 Laboratory Results 07/28/16 05:18 07/29/16 05:30 07/28/16 07/29/16 07/30/16 05:59 05:59 05:59 Intake Total 120 150 Output Total 800 Balance 120 -650 - Physical Exam Constitutional: no apparent distress, appears nourished, not in pain Eyes: anicteric sclera, EOMI Ears, Nose, Mouth, Throat: moist mucous membranes, hearing normal Cardiovascular: regular rate and rhythym, no murmur, rub, or gallop Respiratory: no respiratory distress, no rales or rhonchi, clear to auscultation Gastrointestinal: normoactive bowel sounds, soft, non-tender abdomen, no palpable masses Skin: warm Neurologic: AAOx3 Psychiatric: interacting appropriately, not anxious, not encephalopathic, thought process linear ICD10 Worksheet Patient Problems: Problems Problem Status Onset ESRD (end stage renal disease) Acute
[2016-07-29] MEDS: PREGABALIN 50 MG CAP PO SCH (22:00)
[2016-07-29] MEDS: traMADol 50 MG TAB PO PRN (22:00)
[2016-07-29] MEDS: TEMAZEPAM 15 MG CAP PO PRN (22:00)
[2016-07-29] MEDS: VANCOMYCIN 125 MG/2.5 ML UDL PO SCH (22:01)
[2016-07-29] MEDS: ATORVASTATIN CALCIUM 10 MG TAB PO SCH (22:01)
[2016-07-30] MEDS: VANCOMYCIN 125 MG/2.5 ML UDL PO SCH ×4 (06:11→21:00)
[2016-07-30] MEDS: HEPARIN 5,000 UNIT/0.5 ML SYR SC SCH ×3 (06:11→21:08)
[2016-07-30 07:03] LABS: ALBUMIN 3.1 g/dL (3.5-5.0); ANION GAP 10 mEq/L (8-16); CALCIUM 9.1 mg/dL (8.5-10.4); CARBON DIOXIDE 27 mEq/l (22-31); CHLORIDE 94 mEq/L (97-110); CREATININE 4.3 mg/dL (0.6-1.0); GLOMERULAR FILTRATION RATE 11; GLUCOSE 193 mg/dL (70-100); POTASSIUM 4.5 mEq/L (3.5-5.2); SODIUM 131 mEq/L (134-144)
[2016-07-30] MEDS: hydrALAZINE 10 MG TAB PO SCH ×2 (10:47→18:45)
[2016-07-30] MEDS: FAMOTIDINE 20 MG TAB PO SCH (10:47)
[2016-07-30] MEDS: ASPIRIN EC 81 MG TAB PO SCH (10:47)
[2016-07-30] MEDS: levETIRAcetam 500 MG TAB PO SCH (10:47)
[2016-07-30] MEDS: amLODIPine BESYLATE 5 MG TAB PO SCH (10:48)
[2016-07-30] MEDS: CALCIUM ACETATE 667 MG CAP PO SCH ×3 (10:48→18:50)
[2016-07-30] MEDS: CALCIUM CARBONATE 500 MG TAB PO SCH ×3 (10:48→18:49)
[2016-07-30] MEDS: METOPROLOL TARTRATE 100 MG TAB PO SCH ×2 (10:48→21:00)
[2016-07-30] MEDS: FERROUS SULFATE 325 MG TAB PO SCH (10:48)
[2016-07-30] MEDS: ESCITALOPRAM OXALATE 10 MG TAB PO SCH (10:48)
[2016-07-30] MEDS: INSULIN LISPRO 100 UNIT/ML SC SCH ×3 (10:49→18:50)
--- NOTE | 2016-07-30 12:41 | SOAPPROG ---
[place] Progress Note Assessment/Plan: Assessment: 1)ESRD- HD TTS schedule -resting AVF, using TDC for now -next HD Sunday but will assess daily for need -ok with gentle IVF bolus back now given diarrhea (would avoid standing IVF and just give small boluses prn) 2)Recurrent DKA -off insulin gtt, sugars improved 3)Anemia of CKD- Hb at goal 4)MBD Of CKD- renal diet, Ca Acetate binder resumed 5)Metabolic encephalopathy- resolved 6)Diarrhea- C diff Positive,started oral vanco 7)HTN- I increased her amlodipine dose today I discussed with BANKING ATTORNEY [facility] I am household personal assistant for our group for the weekend [phone] 07/30/16 13:14 Subjective: Ongoing diarrhea- C diff came back positive and started on po vanco. Blood sugar low earlier and received D50. Now getting some gentle IVF given diarrhea. Objective: Vital Signs Temp Pulse Resp BP Pulse Ox 36.6 C 62 20 177/82 H 100 07/30/16 08:00 07/30/16 08:00 07/30/16 08:00 07/30/16 08:00 07/30/16 08:00 Microbiology 07/29/16 15:14 Gastrointestinal Tract Panel (PCR) - Final Stool Clostridium Difficile Detected Laboratory Results 07/28/16 05:18 07/30/16 06:15 07/29/16 07/30/16 07/31/16 05:59 05:59 05:59 Intake Total 150 1700 Output Total 800 500 Balance -650 1200 Physical Exam - Physical Exam General Appearance: no apparent distress EENT: other (mmm) Neck: other ([facility] TDC c/d/i) Respiratory: lungs clear Cardiac/Chest: regular rate, rhythm, other (no rub) Abdomen: normal bowel sounds, non-tender, soft Skin: warm/dry Extremities: other (no edema, LUE AVF +thrill/bruit) Neuro/Psych: other (sleeping but arousable) ICD10 Worksheet Patient Problems: Problems Problem Status Onset ESRD (end stage renal disease) Acute
[2016-07-30] MEDS: D50W 25 GM/50 ML SYR IVP PRN (12:47)
--- NOTE | 2016-07-30 13:20 | HOSPPROG ---
Hospitalist Progress Note Assessment/Plan: #Metabolic encephalopathy * due to hyperglycemia * resolved #ESRD: HD per renal #DKA: off insulin gtt * type 2 diabetes uncontrolled * blood sugars have been quite labile the last year * blood sugars symptomatically low today * may decrease Lantus * diarrhea * positive C diff * continue oral vancomycin #Hyperkalemia: resolved with HD #Hyponatremia: resolved #Accelerated HTN: resumed home meds #Metabolic anion gap acidosis: due to hyperglycemia/ESRD #Diet: renal Subjective: still having diarrhea. Did have episode of confusion which improved with an amp of D50 Objective: Vital Signs Temp Pulse Resp BP Pulse Ox 36.6 C 62 20 177/82 H 100 07/30/16 08:00 07/30/16 08:00 07/30/16 08:00 07/30/16 08:00 07/30/16 08:00 Microbiology 07/29/16 15:14 Gastrointestinal Tract Panel (PCR) - Final Stool Clostridium Difficile Detected Laboratory Results 07/28/16 05:18 07/30/16 06:15 07/29/16 07/30/16 07/31/16 05:59 05:59 05:59 Intake Total 150 1700 Output Total 800 500 Balance -650 1200 - Physical Exam Constitutional: no apparent distress, appears nourished, not in pain Eyes: anicteric sclera, EOMI Ears, Nose, Mouth, Throat: moist mucous membranes, hearing normal Cardiovascular: regular rate and rhythym, no murmur, rub, or gallop Respiratory: no respiratory distress, no rales or rhonchi, clear to auscultation Gastrointestinal: normoactive bowel sounds, soft, non-tender abdomen, no palpable masses Skin: warm Psychiatric: other ( was encephalopathic but now better with sugar) ICD10 Worksheet Patient Problems: Problems Problem Status Onset ESRD (end stage renal disease) Acute
[2016-07-30] MEDS: INSULIN GLARGINE 100 UNITS/ML SYRINGE SC SCH ×2 (14:38→21:03)
[2016-07-30] MEDS: PREGABALIN 50 MG CAP PO SCH (21:00)
[2016-07-30] MEDS: ATORVASTATIN CALCIUM 10 MG TAB PO SCH (21:00)
[2016-07-31] MEDS: hydrALAZINE 10 MG TAB PO SCH ×4 (00:15→22:14)
[2016-07-31] MEDS: VANCOMYCIN 125 MG/2.5 ML UDL PO SCH ×4 (05:24→22:16)
[2016-07-31] MEDS: HEPARIN 5,000 UNIT/0.5 ML SYR SC SCH ×3 (05:24→23:33)
[2016-07-31 06:31] LABS: ALBUMIN 3.2 g/dL (3.5-5.0); ANION GAP 9 mEq/L (8-16); CALCIUM 9.3 mg/dL (8.5-10.4); CARBON DIOXIDE 26 mEq/l (22-31); CHLORIDE 96 mEq/L (97-110); CREATININE 5.6 mg/dL (0.6-1.0); GLOMERULAR FILTRATION RATE 8; GLUCOSE 255 mg/dL (70-100); POTASSIUM 4.8 mEq/L (3.5-5.2); SODIUM 131 mEq/L (134-144)
[2016-07-31] MEDS: CALCIUM ACETATE 667 MG CAP PO SCH ×3 (08:07→17:45)
[2016-07-31] MEDS: CALCIUM CARBONATE 500 MG TAB PO SCH ×3 (08:07→17:45)
[2016-07-31] MEDS: ESCITALOPRAM OXALATE 10 MG TAB PO SCH (08:09)
[2016-07-31] MEDS: ASPIRIN EC 81 MG TAB PO SCH (08:09)
[2016-07-31] MEDS: FAMOTIDINE 20 MG TAB PO SCH (08:12)
[2016-07-31] MEDS: FERROUS SULFATE 325 MG TAB PO SCH (08:12)
[2016-07-31] MEDS: levETIRAcetam 500 MG TAB PO SCH (08:12)
[2016-07-31] MEDS: METOPROLOL TARTRATE 100 MG TAB PO SCH ×2 (08:16→22:14)
[2016-07-31] MEDS: amLODIPine BESYLATE 5 MG TAB PO SCH (08:18)
[2016-07-31] MEDS: INSULIN LISPRO 100 UNIT/ML SC SCH ×3 (08:57→12:27)
[2016-07-31] MEDS: INSULIN GLARGINE 100 UNITS/ML SYRINGE SC SCH ×2 (08:59→22:14)
--- NOTE | 2016-07-31 09:04 | SOAPPROG ---
SOAP Progress Note Assessment/Plan: Assessment: 1. ESRD. HD tomorrow on TTS schedule. 2. DKA. Hx of extremely labile and brittle DM. DKA now resolved. Insulin mgmt per primary service. 3. C. diff colitis. Diarrhea resolved today. Continue po vancomycin. 4. Dispo. Will go back to [facility] at d/c. Plan: 07/31/16 09:04 Subjective: No major complaints except minor chest pain with breathing due to rib fracture. Last dialysis was Sunday. Denies diarrhea. Objective: Vital Signs Temp Pulse Resp BP Pulse Ox 36.6 C 74 16 180/93 H 97 07/31/16 08:20 07/31/16 08:16 07/31/16 08:20 07/31/16 08:16 07/31/16 08:20 Laboratory Results 07/28/16 05:18 07/31/16 05:35 07/30/16 07/31/16 08/01/16 05:59 05:59 05:59 Intake Total 1700 710 Output Total 500 Balance 1200 710 RRR, no m/g/r CTAB Abdom soft, nt No LE edema ICD10 Worksheet Patient Problems: Problems Problem Status Onset ESRD (end stage renal disease) Acute
[2016-07-31 11:03] LABS: GLUCOSE 450 mg/dL (70-100)
--- NOTE | 2016-07-31 13:35 | HOSPPROG ---
Hospitalist Progress Note Assessment/Plan: #Metabolic encephalopathy * due to hyperglycemia * resolved #ESRD: HD per renal #DKA: off insulin gtt * type 2 diabetes uncontrolled * blood sugars have been quite labile the last year * blood sugars symptomatically low today * discussed with Endocrinology. Will add 3 units of insulin with each meal and hold sliding scale at this time * diarrhea * positive C diff * continue oral vancomycin * improving #Hyperkalemia: resolved with HD #Hyponatremia: resolved #Accelerated HTN: resumed home meds #Metabolic anion gap acidosis: due to hyperglycemia/ESRD #Diet: renal Subjective: diarrhea seems to be getting better Objective: Vital Signs Temp Pulse Resp BP Pulse Ox 37.2 C 74 20 162/86 H 95 07/31/16 11:41 07/31/16 11:41 07/31/16 11:41 07/31/16 11:41 07/31/16 11:41 Laboratory Results 07/28/16 05:18 07/31/16 10:35 07/30/16 07/31/16 08/01/16 05:59 05:59 05:59 Intake Total 1700 710 Output Total 500 Balance 1200 710 - Physical Exam Constitutional: no apparent distress, appears nourished, not in pain Eyes: anicteric sclera, EOMI Ears, Nose, Mouth, Throat: moist mucous membranes, hearing normal Cardiovascular: regular rate and rhythym, no murmur, rub, or gallop Respiratory: no respiratory distress, no rales or rhonchi, clear to auscultation Gastrointestinal: normoactive bowel sounds, soft, non-tender abdomen, no palpable masses Skin: warm Neurologic: AAOx3 Psychiatric: interacting appropriately, not anxious, not encephalopathic, thought process linear ICD10 Worksheet Patient Problems: Problems Problem Status Onset ESRD (end stage renal disease) Acute
[2016-07-31] MEDS ORDERED: INSULIN LISPRO 100 UNIT/ML SC SCH (18:00)
[2016-07-31] MEDS: PREGABALIN 50 MG CAP PO SCH (22:15)
[2016-07-31] MEDS: ATORVASTATIN CALCIUM 10 MG TAB PO SCH (22:15)
[2016-08-01] MEDS: ONDANSETRON 4 MG/2 ML VIAL IVP PRN (04:30)
[2016-08-01 05:24] LABS: ALBUMIN 3.6 g/dL (3.5-5.0); ANION GAP 13 mEq/L (8-16); CALCIUM 9.5 mg/dL (8.5-10.4); CARBON DIOXIDE 21 mEq/l (22-31); CHLORIDE 88 mEq/L (97-110); CREATININE 6.4 mg/dL (0.6-1.0); GLOMERULAR FILTRATION RATE 7; SODIUM 122 mEq/L (134-144)
[2016-08-01 05:40] LABS: GLUCOSE 634 mg/dL (70-100); POTASSIUM 6.3 mEq/L (3.5-5.2)
[2016-08-01] MEDS ORDERED: D50W 25 GM/50 ML SYR IVP PRN (05:54)
[2016-08-01] MEDS ORDERED: INSULIN LISPRO 100 UNIT/ML SC ONE (05:56)
[2016-08-01] MEDS: VANCOMYCIN 125 MG/2.5 ML UDL PO SCH ×4 (06:18→21:34)
[2016-08-01] MEDS: HEPARIN 5,000 UNIT/0.5 ML SYR SC SCH ×3 (06:18→21:37)
[2016-08-01] MEDS ORDERED: INSULIN LISPRO 100 UNIT/ML SC SCH ×3 (08:00→12:00)
[2016-08-01] MEDS: INSULIN GLARGINE 100 UNITS/ML SYRINGE SC SCH ×2 (08:14→21:36)
[2016-08-01] MEDS: amLODIPine BESYLATE 5 MG TAB PO SCH (08:15)
[2016-08-01] MEDS: CALCIUM CARBONATE 500 MG TAB PO SCH ×3 (08:15→17:55)
[2016-08-01] MEDS: ESCITALOPRAM OXALATE 10 MG TAB PO SCH (08:15)
[2016-08-01] MEDS: FERROUS SULFATE 325 MG TAB PO SCH (08:15)
[2016-08-01] MEDS: hydrALAZINE 10 MG TAB PO SCH ×3 (08:15→21:36)
[2016-08-01] MEDS: ASPIRIN EC 81 MG TAB PO SCH (08:16)
[2016-08-01] MEDS: METOPROLOL TARTRATE 100 MG TAB PO SCH ×2 (08:16→21:34)
[2016-08-01] MEDS: CALCIUM ACETATE 667 MG CAP PO SCH ×3 (08:16→17:55)
[2016-08-01] MEDS: FAMOTIDINE 20 MG TAB PO SCH (08:16)
[2016-08-01] MEDS: levETIRAcetam 500 MG TAB PO SCH (08:16)
--- NOTE | 2016-08-01 11:00 | SOAPPROG ---
SOAP Progress Note Assessment/Plan: Assessment: 1. ESRD HD today. Will attempt use of fistula. 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 2. Hyperkalemia Likely related to hyperglycemia. Insulin, dialysis later today. 3. DKA Better Plan: 08/01/16 10:56 Subjective: Oriented, no complaints Objective: Vital Signs Temp Pulse Resp BP Pulse Ox 36.8 C 82 15 136/61 H 88 L 08/01/16 08:00 08/01/16 08:00 08/01/16 08:00 08/01/16 08:00 08/01/16 08:00 Laboratory Results 07/28/16 05:18 08/01/16 04:35 07/31/16 08/01/16 08/02/16 05:59 05:59 05:59 Intake Total 710 1000 150 Balance 710 1000 150 Physical Exam - Physical Exam General Appearance: no apparent distress Neck: other (Cath tunnel and site without evidence of infection) Respiratory: lungs clear Cardiac/Chest: regular rate, rhythm Abdomen: soft Extremities: other (fistula site ok.) ICD10 Worksheet Patient Problems: Problems Problem Status Onset C. difficile diarrhea Acute ~07/29/16 ESRD (end stage renal disease) Acute
[2016-08-01] MEDS: INSULIN LISPRO 100 UNIT/ML SC SCH (11:46)
--- NOTE | 2016-08-01 14:59 | HOSPPROG ---
Hospitalist Progress Note Assessment/Plan: #Metabolic encephalopathy * due to hyperglycemia * resolved #ESRD: HD per renal #DKA: off insulin gtt * type 2 diabetes uncontrolled * blood sugars have been quite labile the last year * blood sugars symptomatically few days ago * blood sugars now high. * will increase mealtime insulin to home regimen * she will follow up with Endocrinology soon after discharge * diarrhea * positive C diff * continue oral vancomycin * improving * progressive cognitive decline * may be related to labile blood sugars #Hyperkalemia: * hemodialysis #Hyponatremia: resolved #Accelerated HTN: resumed home meds #Metabolic anion gap acidosis: due to hyperglycemia/ESRD #Diet: renal Subjective: high blood sugars this morning. It is little more somnolent than usual. Diarrhea is better Objective: Vital Signs Temp Pulse Resp BP Pulse Ox 36.9 C 71 12 136/68 H 86 L 08/01/16 12:04 08/01/16 12:04 08/01/16 12:04 08/01/16 12:04 08/01/16 12:04 Laboratory Results 07/28/16 05:18 08/01/16 04:35 07/31/16 08/01/16 08/02/16 05:59 05:59 05:59 Intake Total 710 1000 400 Balance 710 1000 400 - Physical Exam Constitutional: no apparent distress, appears nourished, not in pain Eyes: anicteric sclera, EOMI Ears, Nose, Mouth, Throat: moist mucous membranes, hearing normal Cardiovascular: regular rate and rhythym, no murmur, rub, or gallop Respiratory: no respiratory distress, no rales or rhonchi, clear to auscultation Gastrointestinal: normoactive bowel sounds, soft, non-tender abdomen, no palpable masses Skin: warm Psychiatric: not anxious, not encephalopathic, thought process linear, other ( little slow) ICD10 Worksheet Patient Problems: Problems Problem Status Onset C. difficile diarrhea Acute ~07/29/16 ESRD (end stage renal disease) Acute
[2016-08-01] MEDS ORDERED: LIDOCAINE 1% 30 ML SDV ONE (16:41)
[2016-08-01] MEDS: ATORVASTATIN CALCIUM 10 MG TAB PO SCH (21:34)
[2016-08-01] MEDS: PREGABALIN 50 MG CAP PO SCH (21:34)
[2016-08-02] MEDS: VANCOMYCIN 125 MG/2.5 ML UDL PO SCH ×3 (05:06→16:20)
[2016-08-02] MEDS: HEPARIN 5,000 UNIT/0.5 ML SYR SC SCH ×3 (05:07→14:09)
[2016-08-02 05:33] LABS: % IMMATURE GRANULYOCYTES 0.2 % (0.0-1.1); ABSOLUTE IMMATURE GRANULOCYTES 0.01 10^3/uL (0.00-0.10); ADD DIFF? NO; ADD MORPH? NO; ADD SCAN? NO; ATYPICAL LYMPHOCYTE FLAG 30 (0-99); FRAGMENT RBC FLAG 0 (0-99); HEMATOCRIT 34.9 % (38.0-47.0); HEMOGLOBIN 11.7 g/dL (12.6-16.3); LEFT SHIFT FLG 0 (0-99); LIPEMIA HEMOLYSIS FLAG 80 (0-99); MEAN CELL HEMOGLOBIN 30.2 pg (27.9-34.1); MEAN CELL HEMOGLOBIN CONCENTR. 33.5 g/dL (32.4-36.7); MEAN CELL VOLUME 89.9 fL (81.5-99.8); PLATELET CLUMPS FLAG 10 (0-99); PLATELET COUNT 229 10^3/uL (150-400); RED BLOOD CELL COUNT 3.88 10^6/uL (4.18-5.33)
[2016-08-02 05:56] LABS: GLUCOSE 303 mg/dL (70-100)
[2016-08-02] MEDS: amLODIPine BESYLATE 5 MG TAB PO SCH (08:06)
[2016-08-02] MEDS: levETIRAcetam 500 MG TAB PO SCH (08:06)
[2016-08-02] MEDS: CALCIUM ACETATE 667 MG CAP PO SCH ×2 (08:06→12:40)
[2016-08-02] MEDS: CALCIUM CARBONATE 500 MG TAB PO SCH ×2 (08:06→12:40)
[2016-08-02] MEDS: FERROUS SULFATE 325 MG TAB PO SCH (08:06)
[2016-08-02] MEDS: FAMOTIDINE 20 MG TAB PO SCH (08:09)
[2016-08-02] MEDS: ASPIRIN EC 81 MG TAB PO SCH (08:09)
[2016-08-02] MEDS: ESCITALOPRAM OXALATE 10 MG TAB PO SCH (08:09)
[2016-08-02] MEDS: INSULIN GLARGINE 100 UNITS/ML SYRINGE SC SCH (08:27)
[2016-08-02] MEDS: hydrALAZINE 10 MG TAB PO SCH ×2 (08:28→16:17)
[2016-08-02] MEDS: METOPROLOL TARTRATE 100 MG TAB PO SCH (08:31)
[2016-08-02 08:36] VITALS: RESP 14
--- NOTE | 2016-08-02 08:43 | SOAPPROG ---
SOAP Progress Note Assessment/Plan: Assessment: 1. ESRD. Hyperkalemia yesterday. Occurs periodically. Will add K restriction to diet. HD tomorrow on TTS schedule. 2. DKA. Hx of extremely labile and brittle DM. DKA now resolved but BS still very labile. Insulin mgmt per primary service. 3. C. diff colitis. Diarrhea resolved. Continue po vancomycin. 4. AMS. Likely related to above. Tends to resolve once BS more stable and infections controlled. 5. Dispo. Will go back to [facility] at d/c. Plan: 07/31/16 09:04 08/02/16 08:41 08/02/16 08:43 Subjective: Dialyzed yesterday, 1.5 L removed. Confused, can't remember yesterday. No complaints otherwise. Objective: Vital Signs Temp Pulse Resp BP Pulse Ox 36.4 C 66 14 174/84 H 93 08/02/16 08:00 08/02/16 08:31 08/02/16 08:00 08/02/16 08:31 08/02/16 08:00 Laboratory Results 08/02/16 05:00 08/02/16 05:00 08/01/16 08/02/16 08/03/16 05:59 05:59 05:59 Intake Total 1000 1000 Output Total 1500 Balance 1000 -500 Alert, slightly confused RRR, no m/g/r CTAB Abdom soft, nt No edema ICD10 Worksheet Patient Problems: Problems Problem Status Onset C. difficile diarrhea Acute ~07/29/16 ESRD (end stage renal disease) Acute
[2016-08-02] MEDS: INSULIN LISPRO 100 UNIT/ML SC SCH ×3 (09:14→12:45)
--- NOTE | 2016-08-02 15:12 | PDIAF ---
- Diagnosis Diagnosis: hyperglycemia Code Status: Full Code - Medication Management Discharge Medications: Medications to Continue on Transfer Amlodipine Besylate [Norvasc] 5 mg PO DAILY 07/26/16 [Last Taken Unknown] Aspirin EC [Aspirin EC 81 mg (*)] 81 mg PO DAILY 07/26/16 [Last Taken Unknown] Calcium Acetate [Phoslo (*)] 667 mg PO TID 07/26/16 [Last Taken Unknown] Calcium Carbonate 600 mg PO TIDMEAL 07/26/16 [Last Taken Unknown] Escitalopram Oxalate [Lexapro] 20 mg PO DAILY 07/26/16 [Last Taken Unknown] Famotidine [Pepcid 20 MG (*)] 20 mg PO DAILY 07/26/16 [Last Taken Unknown] Ferrous Sulfate [Ferrous Sulf 325 MG (*)] 325 mg PO DAILY 07/26/16 [Last Taken Unknown] Herbals/Supplements -Info Only 1 ea PO DAILY 07/26/16 [Last Taken Unknown] Insulin Glargine [Lantus 100 UNITS/ML (*)] 4 units SC DAILY 07/26/16 [Last Taken Unknown] Insulin Glargine [Lantus 100 UNITS/ML (*)] 6 units SC HS 07/26/16 [Last Taken Unknown] Insulin Lispro [Humalog] 6 unit SQ BID@07,12 07/26/16 [Last Taken Unknown] Insulin Lispro [Humalog] 8 unit SQ DAILY@1800 07/26/16 [Last Taken Unknown] Losartan Potassium [Cozaar] 100 mg PO DAILY 07/26/16 [Last Taken Unknown] Metoprolol Tartrate [Lopressor 100 mg (*)] 100 mg PO BID 07/26/16 [Last Taken Unknown] Ondansetron Odt [Zofran Odt 4 mg (*)] 4 mg PO Q4 PRN 07/26/16 [Last Taken Unknown] Polyethylene Glycol 3350 [Miralax 17 gm (*)] 17 gm PO DAILY PRN 07/26/16 [Last Taken Unknown] Pregabalin [Lyrica 50mg (*)] 50 mg PO HS 07/26/16 [Last Taken Unknown] Simvastatin [Zocor] 20 mg PO HS 07/26/16 [Last Taken Unknown] hydrALAZINE [Apresoline 10 mg (*)] 35 mg PO TID 07/26/16 [Last Taken Unknown] levETIRAcetam [Keppra 500 mg (*)] 500 mg PO DAILY 07/26/16 [Last Taken Unknown] traMADol [Ultram 50 mg (*)] 50 mg PO Q6 PRN 07/26/16 [Last Taken Unknown] Vancomycin [Vancocin Oral Liquid] 125 mg PO QID #40 udl 08/02/16 [Last Taken Unknown] Retail Pharmacy Technician Antibiotics: vancomyocin 125 mg po qid Intermediate Antibiotic Stop Date: 08/12/16 Discharge Medications: Refer to the Discharge Home Medication list for PRN reason. - Orders Diet Texture: Regular Texture Diet, Thin Liquids, Meds Whole in Puree - Follow Up Care Current Providers and Referrals: Patient,NotPresent [Unknown] - As per Instructions Meet Cornejo MD [Medical Doctor] - 08/04/16 11:00 am
[2016-08-02 16:16] VITALS: BP 147/70; PULSE 72; TEMP 98; O2SAT 92
--- NOTE | 2016-08-02 22:00 | GDS ---
[f rep st] DISCHARGE SUMMARY DISCHARGE DIAGNOSES: 1. Acute encephalopathy, secondary to hypoglycemia. 2. Very brittle type 1 diabetes. 3. New diagnosis of Clostridium difficile colitis. 4. End-stage renal disease. 5. History of hypertension. 6. Possible seizure disorder. HISTORY: This is a 56-year-old female who lives at [facility]. She presented with vomiting and janis rrhea, and abdominal pain. Her blood sugars were elevated. HOSPITAL COURSE: 1. Hyperglycemia-induced acute encephalopathy, with the improvement of her blood sugars. Her encep halopathy improved. 2. Brittle type 1 diabetes. Apparently, she gets symptoms of hypoglycemia with blood sugars in the low 100s. We did see that several times here in the hospital. She is quite sensitive to insulin, and I have been having trouble with her blood sugar management here. At this point, we got her back on her baseline regimen. I think that the C. difficile colitis was causing her hyperglycemia. She will follow up. We do have made an appointment with Endocrinology for 2 days from now to follow up , to continue managing this brittle diabetes. 3. Clostridium difficile colitis. The patient did have significant diarrhea, and was positive for Clostridium difficile. We did start her on vancomycin with improvement. She will finish a 14-day c ourse. 4. End-stage renal disease. Patient gets dialysis 3 days a week, and we will continue this. TIME SPENT: Greater than 30 minutes was spent in discharge. /[id number]/MODL
--- NOTE | 2016-08-07 11:38 | PQFORM ---
PHYSICIAN QUERY FORM Needs Your Response This query form is being sent to you to assure this patient record is coded properly. Please respond to the question below: HOT BOX OPERATOR QUESTION: Dr. Gresham, According to your progress notes, the patient had Diabetic Ketoacidosis on admission. This was not mentioned in your discharge summary. Would this patients encephalopathy be secondary to: ____x___ Diabetic ketoacidosis Diabetes secondary to hypoglycemia (so stated) Diabetes, type 1 uncontrolled Other Unspecified Thank you for clarifying, Julia Perez ALARM TECHNICIAN HIM Coding [id number] INSTRUCTIONS FOR RESPONSE: Answer question by clicking on the "Edit Document" button. Move cursor to area below the stars. When complete, hit "Save." Click on the "Sign" button, then click "Sign" again. Type in your PIN and hit "Enter." MTDD
== END 2016-08-02 17:02 | DRG 637 ==
LOC: EDUNIT# → F2N 15:45
PROVIDERS: ADMIT Student in an Organized Health Care Education/Training Program; ATTEND Internal Medicine
PROC: 02HV33Z Insertion of Infusion Device into Superior Vena Cava, Percutaneous Approach (ICD-10-PCS; principal; 2016-07-26)
PROC: 5A1D60Z (ICD-10-PCS; 2016-07-27)
DX: E10.10 Type 1 diabetes mellitus with ketoacidosis without coma (principal); G93.41 Metabolic encephalopathy; E10.65 Type 1 diabetes mellitus with hyperglycemia; E10.22 Type 1 diabetes mellitus with diabetic chronic kidney disease; N18.6 End stage renal disease; I12.0 Hypertensive chronic kidney disease with stage 5 chronic kidney disease or end stage renal disease; A04.7 Enterocolitis due to Clostridium difficile; E87.1 Hypo-osmolality and hyponatremia; E87.2 Acidosis; D63.1 Anemia in chronic kidney disease; G40.909 Epilepsy, unspecified, not intractable, without status epilepticus; E78.5 Hyperlipidemia, unspecified; F32.9 Major depressive disorder, single episode, unspecified; E87.5 Hyperkalemia; Z99.2 Dependence on renal dialysis
CPT/HCPCS: 82947-QW; 92526-GN; 92610-GN; 96374; 97116-GP; 97162-GP; 97530-GP; C1751; G8978-GP-CL; G8979-GP-CJ; G8996-GN-CJ; G8997-GN-CI; G8998-GN-CH; J1644; J1815; J2405; Q9967

== ENCOUNTER 2016-09-20 13:36 | Inpatient (IN) | payer OTHER, MEDICAID ==
[2016-09-20 14:10] LABS: % IMMATURE GRANULYOCYTES 0.3 % (0.0-1.1); ABSOLUTE IMMATURE GRANULOCYTES 0.02 10^3/uL (0.00-0.10); ADD DIFF? NO; ADD MORPH? NO; ADD SCAN? NO; ATYPICAL LYMPHOCYTE FLAG 0 (0-99); FRAGMENT RBC FLAG 0 (0-99); HEMATOCRIT 30.7 % (38.0-47.0); HEMOGLOBIN 9.9 g/dL (12.6-16.3); LEFT SHIFT FLG 10 (0-99); LIPEMIA HEMOLYSIS FLAG 80 (0-99); MEAN CELL HEMOGLOBIN 30.1 pg (27.9-34.1); MEAN CELL HEMOGLOBIN CONCENTR. 32.2 g/dL (32.4-36.7); MEAN CELL VOLUME 93.3 fL (81.5-99.8); MEAN PLATELET VOLUME 9.9 fL (8.7-11.7); PLATELET CLUMPS FLAG 0 (0-99); PLATELET COUNT 305 10^3/uL (150-400); RED BLOOD CELL COUNT 3.29 10^6/uL (4.18-5.33); RED CELL DISTRIBUTION WIDTH 14.9 % (11.5-15.2)
[2016-09-20] MEDS ORDERED: NS 1,000 ML IV ONE ×3 (14:10→15:14)
--- NOTE | 2016-09-20 14:15 | EDPHY ---
H & P Stated Complaint: Hyperglycemia, N/V from [facility] Time Seen by Provider: 09/20/16 14:10 HPI/ROS: CHIEF COMPLAINT: Vomiting, hyperglycemia HISTORY OF PRESENT ILLNESS: The patient presents to the emergency department with 2 days of vomiting and hyperglycemia. The patient is coming from [facility]. The patient does have a history of some chronic diarrhea. She is also currently on 3 days a week dialysis. She was dialyzed uneventfully yesterday. The patient denies any fever, cough, congestion or dysuria. She has no complaints of acute pain. The patient does feel moderate to severe global weakness secondary to her vomiting. The patient does have a history of type 1 diabetes. She is currently maintained on insulin. I do not have records of the patient's insulin administration today. REVIEW OF SYSTEMS: A comprehensive 10 point review of systems is otherwise negative aside from elements mentioned in the history of present illness. Source: Patient Exam Limitations: No limitations - Medical/Surgical History Hx Diabetes: Yes Hx Splenectomy or Spleen Trauma: No Other PMH: DM 2, anemia, ESRF, Cdiff - Social History Smoking Status: Former smoker - Physical Exam Exam: General Appearance: Female, deconditioned, no acute distress Eyes: Pupils equal and round no pallor or injection ENT, Mouth: Dry mucous membranes Respiratory: There are no retractions, lungs are clear to auscultation, dialysis catheter noted on chest wall Cardiovascular: Slight tachycardia Gastrointestinal: Abdomen is soft and nontender, no masses, bowel sounds normal Neurological: A&O, normal motor function, normal sensory exam, normal cranial nerves Skin: Warm and dry, no rashes Musculoskeletal: Neck is supple nontender Extremities: Amputation noted in right toes Constitutional: Initial Vital Signs Temperature (C) 36.8 C 09/20/16 14:03 Heart Rate 79 09/20/16 14:03 Respiratory Rate 18 09/20/16 14:03 Blood Pressure 145/68 H 09/20/16 14:03 O2 Sat (%) 98 09/20/16 14:03 O2 Delivery Mode Room Air O2 (L/minute) 3 Allergies/Adverse Reactions: meperidine HCl [From Demerol] Allergy (Intermediate, Verified 09/01/13 15:37) PARANOID, HALLUCINATIONS sulfamethoxazole [From Bactrim] Allergy (Verified 07/26/16 11:27) trimethoprim [From Bactrim] Allergy (Verified 07/26/16 11:27) Home Medications: Medication Instructions Recorded Acetaminophen [Tylenol 325mg (*)] 650 mg PO Q8 PRN 09/20/16 Amlodipine Besylate [Norvasc] 5 mg PO DAILY 09/20/16 Aspirin EC [Aspirin EC 81 mg (*)] 81 mg PO DAILY 09/20/16 Calcium Acetate [Phoslo (*)] 667 mg PO TID 09/20/16 Calcium Carbonate [Tums 500MG (*)] 600 mg PO TIDMEAL 09/20/16 Dextrose [Glutose 15] 1 kristina PO Q1H PRN 09/20/16 Escitalopram Oxalate [Lexapro] 20 mg PO DAILY 09/20/16 Famotidine [Pepcid 20 MG (*)] 20 mg PO DAILY 09/20/16 Ferrous Sulfate [Ferrous Sulf 325 325 mg PO DAILY 09/20/16 MG (*)] Herbals/Supplements -Info Only 1 ea PO DAILY 09/20/16 Insulin Glargine,Hum.rec.anlog 4 unit SQ DAILY 09/20/16 [Lantus Solostar] Insulin Glargine,Hum.rec.anlog 6 unit SQ HS 09/20/16 [Lantus Solostar] Insulin Lispro [Humalog] 6 unit SQ DAILY@12 09/20/16 Insulin Lispro [Humalog] 8 unit SQ DAILY 09/20/16 Insulin Lispro [Humalog] 8 unit SQ DAILY@17 09/20/16 Ipratropium/Albuterol [Duoneb (*)] 3 ml IH Q4H PRN 09/20/16 Losartan Potassium [Cozaar] 100 mg PO DAILY MDD HOLD IF SBP<120 09/20/16 Metoprolol Tartrate [Lopressor 100 100 mg PO BID 09/20/16 mg (*)] Ondansetron HCl [Zofran] 4 mg PO Q4H PRN 09/20/16 Polyethylene Glycol 3350 [Miralax 17 gm PO DAILY PRN 09/20/16 17 gm (*)] Pregabalin [Lyrica 50mg (*)] 50 mg PO HS 09/20/16 Simvastatin [Zocor] 20 mg PO HS 09/20/16 hydrALAZINE [Apresoline 10 mg (*)] 35 mg PO TID 09/20/16 levETIRAcetam [Keppra 500 mg (*)] 500 mg PO DAILY 09/20/16 traMADol [Ultram 50 mg (*)] 50 mg PO Q6 PRN 09/20/16 Medical Decision Making ED Course/Re-evaluation: The patient presents to the ED with hyperglycemia, dehydration and vomiting. The patient is noted to have diabetic ketoacidosis with an anion gap of 23. The patient has no evidence of acute hyperkalemia. The patient is noted to be in chronic renal failure. The patient had an IV established. She is quite dehydrated. She received 2 L of normal saline. The patient received a insulin bolus and drip. Consultation was made with the hospitalist service. The patient will be admitted by Dr. Braxton. I have notified nephrology of the patient's admission to the intensive care unit. I did discuss the case with Dr. Polanco from Nephrology who has requested the patient receive no further IV fluids. This has been stopped. I have also ordered a lactic acid per his request. Differential Diagnosis: Differential diagnosis considered includes dehydration, renal failure, diabetic ketoacidosis, hyperkalemia, congestive heart failure Critical Care Time: Critical care time exclusive of procedures and exclusive of the PA's time was 45 minutes, performed by myself, Clement Mcgowan MD. The patient presents to the ED with end-stage renal disease, dehydration and diabetic ketoacidosis. The patient did required IV fluid rehydration. The patient received an IV bolus and insulin. The patient will require admission to the intensive care unit. - Data Points Laboratory Results: Laboratory Results 09/20/16 13:55 09/20/16 14:30 09/20/16 09/20/16 09/20/16 14:30 14:30 13:57 WBC RBC Hgb POC Hgb 11.6 gm/dL L gm/dL (12.6-16.3) Hct POC Hct 34 % L % (38-47) MCV MCH MCHC RDW Plt Count MPV Neut % (Auto) Lymph % (Auto) Taney % (Auto) Eos % (Auto) Baso % (Auto) Nucleat RBC Rel Count Absolute Neuts (auto) Absolute Lymphs (auto) Absolute Monos (auto) Absolute Eos (auto) Absolute Basos (auto) Absolute Nucleated RBC Immature Gran % Immature Gran # POC Sodium 125 mEq/L L mEq/L (134-144) Sodium 125 mEq/L L mEq/L (134-144) POC Potassium 4.2 mEq/L mEq/L (3.3-5.0) Potassium 3.9 mEq/L mEq/L (3.5-5.2) POC Chloride 91 mEq/L L mEq/L (97-110) Chloride 92 mEq/L L mEq/L (97-110) Carbon Dioxide 12 mEq/l L mEq/l (22-31) Anion Gap 21 mEq/L H mEq/L (8-16) POC BUN 71 mg/dL H mg/dL (7-23) BUN 65 mg/dL H mg/dL (7-23) Creatinine 4.4 mg/dL H mg/dL (0.6-1.0) POC Creatinine 5.4 mg/dL H mg/dL (0.6-1.0) Estimated GFR 10 Glucose Pending POC Glucose Pending Calcium 8.2 mg/dL L mg/dL (8.5-10.4) Phosphorus 5.2 mg/dL H mg/dL (2.5-4.5) Magnesium 1.9 mg/dL mg/dL (1.6-2.3) Total Bilirubin 0.5 mg/dL mg/dL Cancelled (0.1-1.4) Conjugated Bilirubin 0.4 mg/dL mg/dL Cancelled (0.0-0.5) Unconjugated Bilirubin 0.1 mg/dL mg/dL Cancelled (0.0-1.1) AST 20 IU/L IU/L Cancelled (14-46) ALT 25 IU/L IU/L Cancelled (9-52) Alkaline Phosphatase 105 IU/L IU/L Cancelled (38-126) Total Protein 6.1 g/dL L g/dL Cancelled (6.3-8.2) Albumin 3.3 g/dL L g/dL Cancelled (3.5-5.0) Beta-Hydroxybutyrate 09/20/16 09/20/16 09/20/16 13:55 13:55 13:55 WBC 6.82 10^3/uL 10^3/uL (3.80-9.50) RBC 3.29 10^6/uL L 10^6/uL (4.18-5.33) Hgb 9.9 g/dL L g/dL (12.6-16.3) POC Hgb Hct 30.7 % L % (38.0-47.0) POC Hct MCV 93.3 fL fL (81.5-99.8) MCH 30.1 pg pg (27.9-34.1) MCHC 32.2 g/dL L g/dL (32.4-36.7) RDW 14.9 % % (11.5-15.2) Plt Count 305 10^3/uL 10^3/uL (150-400) MPV 9.9 fL fL (8.7-11.7) Neut % (Auto) 82.2 % H % (39.3-74.2) Lymph % (Auto) 7.0 % L % (15.0-45.0) Taney % (Auto) 10.0 % % (4.5-13.0) Eos % (Auto) 0.1 % L % (0.6-7.6) Baso % (Auto) 0.4 % % (0.3-1.7) Nucleat RBC Rel Count 0.0 % % (0.0-0.2) Absolute Neuts (auto) 5.60 10^3/uL 10^3/uL (1.70-6.50) Absolute Lymphs (auto) 0.48 10^3/uL L 10^3/uL (1.00-3.00) Absolute Monos (auto) 0.68 10^3/uL 10^3/uL (0.30-0.80) Absolute Eos (auto) 0.01 10^3/uL L 10^3/uL (0.03-0.40) Absolute Basos (auto) 0.03 10^3/uL 10^3/uL (0.02-0.10) Absolute Nucleated RBC 0.00 10^3/uL 10^3/uL (0-0.01) Immature Gran % 0.3 % % (0.0-1.1) Immature Gran # 0.02 10^3/uL 10^3/uL (0.00-0.10) POC Sodium Sodium 124 mEq/L L mEq/L (134-144) POC Potassium Potassium 4.5 mEq/L mEq/L (3.5-5.2) POC Chloride Chloride 88 mEq/L L mEq/L (97-110) Carbon Dioxide 13 mEq/l L mEq/l (22-31) Anion Gap 23 mEq/L H mEq/L (8-16) POC BUN BUN 68 mg/dL H mg/dL (7-23) Creatinine 5.0 mg/dL H mg/dL (0.6-1.0) POC Creatinine Estimated GFR 9 Glucose 914 mg/dL H* mg/dL (70-100) POC Glucose Calcium 9.0 mg/dL mg/dL (8.5-10.4) Phosphorus Magnesium Total Bilirubin Conjugated Bilirubin Unconjugated Bilirubin AST ALT Alkaline Phosphatase Total Protein Albumin Beta-Hydroxybutyrate 5.87 mmol/L H mmol/L (0.02-0.27) Medications Given: Discontinued Medications Sodium Chloride (Ns) 1,000 mls @ 0 mls/hr IV ONCE ONE; Wide Open PRN Reason: Protocol Stop: 09/20/16 14:11 Last Admin: 09/20/16 14:33 Dose: 1,000 mls Sodium Chloride (Ns) 1,000 mls @ 0 mls/hr IV ONCE ONE; Wide Open PRN Reason: Protocol Stop: 09/20/16 14:11 Last Admin: 09/20/16 14:34 Dose: 1,000 mls Insulin Human Regular 100 unit / Miscellaneous Medication 1 ea/ Sodium Chloride 101 mls @ 6 mls/hr IV EDNOW ONE PRN Reason: Protocol Stop: 09/21/16 07:57 Last Admin: 09/20/16 15:57 Dose: 101 mls Insulin Human Regular (Humulin R) 10 unit IVP EDNOW ONE Stop: 09/20/16 15:09 Last Admin: 09/20/16 15:43 Dose: 10 units Point of Care Test Results: 09/20/16 13:57 POC Sodium 125 L POC Potassium 4.2 POC Chloride 91 L POC BUN 71 H POC Creatinine 5.4 H Departure - Departure Disposition: [facility] Inpatient Acute Clinical Impression: ESRD (end stage renal disease), Diabetic ketoacidosis Condition: Critical
[2016-09-20 14:23] LABS: ANION GAP 23 mEq/L (8-16); CARBON DIOXIDE 13 mEq/l (22-31); CHLORIDE 88 mEq/L (97-110); GLOMERULAR FILTRATION RATE 9; POTASSIUM 4.5 mEq/L (3.5-5.2); SODIUM 124 mEq/L (134-144)
[2016-09-20 14:54] LABS: GLUCOSE 914 mg/dL (70-100)
[2016-09-20] MEDS ORDERED: INSULIN REGULAR HUMAN 100 UNIT, COSIGN. REQUIRED 1 EA in NS 100 ML IV ONE (15:08)
[2016-09-20] MEDS ORDERED: INSULIN REGULAR HUMAN 100 UNIT/ML IVP ONE (15:08)
[2016-09-20] MEDS ORDERED: ONDANSETRON DISINTEGRATING 4 MG TAB PO PRN (15:14)
[2016-09-20] MEDS ORDERED: ONDANSETRON 4 MG/2 ML VIAL IVP PRN (15:14)
[2016-09-20] MEDS ORDERED: ACETAMINOPHEN 325 MG TAB PO PRN (15:14)
[2016-09-20] MEDS ORDERED: NS 1,000 ML IV SCH ×2 (15:15→16:45)
[2016-09-20] MEDS ORDERED: IPRATROPIUM/ALBUTEROL 3 ML DEYVIAL IH PRN (15:26)
[2016-09-20] MEDS ORDERED: traMADol 50 MG TAB PO PRN (15:26)
[2016-09-20] MEDS ORDERED: POLYETHYLENE GLYCOL 3350 17 GM PKT PO PRN (15:26)
[2016-09-20] MEDS ORDERED: D50W 25 GM/50 ML SYR IVP PRN (15:29)
[2016-09-20] MEDS ORDERED: INSULIN REGULAR HUMAN 100 UNIT in NS 100 ML IV SCH (15:30)
[2016-09-20 15:34] LABS: ALANINE AMINOTRANSFERASE 25 IU/L (9-52); ALBUMIN 3.3 g/dL (3.5-5.0); ALKALINE PHOSPHATASE 105 IU/L (38-126); ANION GAP 21 mEq/L (8-16); ASPARTATE AMINOTRANSFERASE 20 IU/L (14-46); BILIRUBIN,TOTAL 0.5 mg/dL (0.1-1.4); BILIRUBIN-CONJUGATED 0.4 mg/dL (0.0-0.5); BILIRUBIN-UNCONJUGATED 0.1 mg/dL (0.0-1.1); CALCIUM 8.2 mg/dL (8.5-10.4); CARBON DIOXIDE 12 mEq/l (22-31); CHLORIDE 92 mEq/L (97-110); CREATININE 4.4 mg/dL (0.6-1.0); GLOMERULAR FILTRATION RATE 10; MAGNESIUM 1.9 mg/dL (1.6-2.3); POTASSIUM 3.9 mEq/L (3.5-5.2); SODIUM 125 mEq/L (134-144); TOTAL PROTEIN 6.1 g/dL (6.3-8.2)
[2016-09-20 15:57] LABS: BASE EXCESS -9.8 mEq/L (-2.5-2.5); BICARBONATE 16 mEq/L (22-26); MEASURED OXYGEN SATURATION 94 % (92-95); PCO2 33 mmHg (34-38); PO2 72 mmHg (65-75); TCO2 17 mEq/L (23-27)
--- NOTE | 2016-09-20 16:08 | PDGENHP ---
History and Physical - Chief Complaint fever, nausea, fatigue - History of Present Illness 56 yo female with h/o type 1 DM and ESRD, on dialysis, presents to ED from [facility] with weakness, N/V and hyperglycemia. She reports falling ill over the past 2 days with fever, cough, abdominal pain, nausea, vomiting and diarrhea. She is somnolent and overall a poor historian with a positive review of symptoms. She has a h/o C diff and was recently hospitalized in 07/2016 with hyperglycemia and was diagnosed and treated for C diff during that time. Per nephrology, she was last dialyzed yesterday and appeared well. She has a left chest wall tunneled catheter. In the ED, her bg was >900 with an anion gap acidosis. 2L NS boluses were ordered, though due to access problems, this was not completed. After discussion with renal, further boluses were held to avoid volume overload. She received 10 units of IV regular insulin. She is admitted to the ICU on an insulin drip. History Information - Allergies/Home Medication List Allergies/Adverse Reactions: meperidine HCl [From Demerol] Allergy (Intermediate, Verified 09/01/13 15:37) PARANOID, HALLUCINATIONS sulfamethoxazole [From Bactrim] Allergy (Verified 07/26/16 11:27) trimethoprim [From Bactrim] Allergy (Verified 07/26/16 11:27) Home Medications: Acetaminophen [Tylenol 325mg (*)] 650 mg PO Q8 PRN 09/20/16 [Last Taken Unknown] Amlodipine Besylate [Norvasc] 5 mg PO DAILY 09/20/16 [Last Taken Unknown] Aspirin EC [Aspirin EC 81 mg (*)] 81 mg PO DAILY 09/20/16 [Last Taken Unknown] Calcium Acetate [Phoslo (*)] 667 mg PO TID 09/20/16 [Last Taken Unknown] Calcium Carbonate [Tums 500MG (*)] 600 mg PO TIDMEAL 09/20/16 [Last Taken Unknown] Dextrose [Glutose 15] 1 kristina PO Q1H PRN 09/20/16 [Last Taken Unknown] Escitalopram Oxalate [Lexapro] 20 mg PO DAILY 09/20/16 [Last Taken Unknown] Famotidine [Pepcid 20 MG (*)] 20 mg PO DAILY 09/20/16 [Last Taken Unknown] Ferrous Sulfate [Ferrous Sulf 325 MG (*)] 325 mg PO DAILY 09/20/16 [Last Taken Unknown] Herbals/Supplements -Info Only 1 ea PO DAILY 09/20/16 [Last Taken Unknown] Insulin Glargine,Hum.rec.anlog [Lantus Solostar] 4 unit SQ DAILY 09/20/16 [Last Taken 09/20/16] Insulin Glargine,Hum.rec.anlog [Lantus Solostar] 6 unit SQ HS 09/20/16 [Last Taken Unknown] Insulin Lispro [Humalog] 6 unit SQ DAILY@12 09/20/16 [Last Taken 09/20/16] Insulin Lispro [Humalog] 8 unit SQ DAILY 09/20/16 [Last Taken 09/20/16] Insulin Lispro [Humalog] 8 unit SQ DAILY@17 09/20/16 [Last Taken 09/19/16] Ipratropium/Albuterol [Duoneb (*)] 3 ml IH Q4H PRN 09/20/16 [Last Taken Unknown] Losartan Potassium [Cozaar] 100 mg PO DAILY MDD HOLD IF SBP<120 09/20/16 [Last Taken Unknown] Metoprolol Tartrate [Lopressor 100 mg (*)] 100 mg PO BID 09/20/16 [Last Taken Unknown] Ondansetron HCl [Zofran] 4 mg PO Q4H PRN 09/20/16 [Last Taken Unknown] Polyethylene Glycol 3350 [Miralax 17 gm (*)] 17 gm PO DAILY PRN 09/20/16 [Last Taken Unknown] Pregabalin [Lyrica 50mg (*)] 50 mg PO HS 09/20/16 [Last Taken Unknown] Simvastatin [Zocor] 20 mg PO HS 09/20/16 [Last Taken Unknown] hydrALAZINE [Apresoline 10 mg (*)] 35 mg PO TID 09/20/16 [Last Taken Unknown] levETIRAcetam [Keppra 500 mg (*)] 500 mg PO DAILY 09/20/16 [Last Taken Unknown] traMADol [Ultram 50 mg (*)] 50 mg PO Q6 PRN 09/20/16 [Last Taken Unknown] I have personally reviewed and updated: family history, medical history, social history, surgical history - Past Medical History diabetes type 1, ESRD, hypertension, hyperlipidemia Additional medical history: depression, seizure disorder, c diff in 07/2016 - Surgical History Additional surgical history: left chest wall tunneled catheter - Family History Positive for: non-pertinent - Social History Smoking Status: Former smoker Alcohol Use: None Drug Use: None Additional social history: Lives at [facility] Review of Systems ROS: 10pt was reviewed & negative except for what was stated in HPI & below Physical Exam Temp Pulse Resp BP Pulse Ox 36.8 C 79 18 145/68 H 98 09/20/16 14:03 09/20/16 14:03 09/20/16 14:03 09/20/16 14:03 09/20/16 14:10 Lab Data & Imaging Review 09/20/16 13:55 09/20/16 14:30 WBC 6.82 10^3/uL (3.80-9.50) 09/20/16 13:55 RBC 3.29 10^6/uL (4.18-5.33) L 09/20/16 13:55 Hgb 9.9 g/dL (12.6-16.3) L 09/20/16 13:55 POC Hgb 11.6 gm/dL (12.6-16.3) L 09/20/16 13:57 Hct 30.7 % (38.0-47.0) L 09/20/16 13:55 POC Hct 34 % (38-47) L 09/20/16 13:57 MCV 93.3 fL (81.5-99.8) 09/20/16 13:55 MCH 30.1 pg (27.9-34.1) 09/20/16 13:55 MCHC 32.2 g/dL (32.4-36.7) L 09/20/16 13:55 RDW 14.9 % (11.5-15.2) 09/20/16 13:55 Plt Count 305 10^3/uL (150-400) 09/20/16 13:55 MPV 9.9 fL (8.7-11.7) 09/20/16 13:55 Neut % (Auto) 82.2 % (39.3-74.2) H 09/20/16 13:55 Lymph % (Auto) 7.0 % (15.0-45.0) L 09/20/16 13:55 [place] % (Auto) 10.0 % (4.5-13.0) 09/20/16 13:55 Eos % (Auto) 0.1 % (0.6-7.6) L 09/20/16 13:55 Baso % (Auto) 0.4 % (0.3-1.7) 09/20/16 13:55 Nucleat RBC Rel Count 0.0 % (0.0-0.2) 09/20/16 13:55 Absolute Neuts (auto) 5.60 10^3/uL (1.70-6.50) 09/20/16 13:55 Absolute Lymphs (auto) 0.48 10^3/uL (1.00-3.00) L 09/20/16 13:55 Absolute Monos (auto) 0.68 10^3/uL (0.30-0.80) 09/20/16 13:55 Absolute Eos (auto) 0.01 10^3/uL (0.03-0.40) L 09/20/16 13:55 Absolute Basos (auto) 0.03 10^3/uL (0.02-0.10) 09/20/16 13:55 Absolute Nucleated RBC 0.00 10^3/uL (0-0.01) 09/20/16 13:55 Immature Gran % 0.3 % (0.0-1.1) 09/20/16 13:55 Immature Gran # 0.02 10^3/uL (0.00-0.10) 09/20/16 13:55 Puncture Site LEFT BRACHIAL 09/20/16 15:47 Patient Temperature 36.0 DEGREES 09/20/16 15:47 pCO2 33 mmHg (34-38) L 09/20/16 15:47 pO2 72 mmHg (65-75) 09/20/16 15:47 Total CO2 17 mEq/L (23-27) L 09/20/16 15:47 ABG pH 7.29 (7.35-7.45) L 09/20/16 15:47 ABG HCO3 16 mEq/L (22-26) L 09/20/16 15:47 ABG O2 Saturation 94 % (92-95) 09/20/16 15:47 ABG Base Excess -9.8 mEq/L (-2.5-2.5) L 09/20/16 15:47 Total O2 Concentration 3.0 LITERS 09/20/16 15:47 POC Sodium 125 mEq/L (134-144) L 09/20/16 13:57 Sodium 124 mEq/L (134-144) L 09/20/16 13:55 POC Potassium 4.2 mEq/L (3.3-5.0) 09/20/16 13:57 Potassium 4.5 mEq/L (3.5-5.2) 09/20/16 13:55 POC Chloride 91 mEq/L (97-110) L 09/20/16 13:57 Chloride 88 mEq/L (97-110) L 09/20/16 13:55 Carbon Dioxide 13 mEq/l (22-31) L 09/20/16 13:55 Anion Gap 23 mEq/L (8-16) H 09/20/16 13:55 POC BUN 71 mg/dL (7-23) H 09/20/16 13:57 BUN 68 mg/dL (7-23) H 09/20/16 13:55 Creatinine 5.0 mg/dL (0.6-1.0) H 09/20/16 13:55 POC Creatinine 5.4 mg/dL (0.6-1.0) H 09/20/16 13:57 Estimated GFR 9 09/20/16 13:55 Glucose 914 mg/dL (70-100) H* 09/20/16 13:55 Calcium 9.0 mg/dL (8.5-10.4) 09/20/16 13:55 Total Bilirubin Cancelled 09/20/16 14:30 Conjugated Bilirubin Cancelled 09/20/16 14:30 Unconjugated Bilirubin Cancelled 09/20/16 14:30 AST Cancelled 09/20/16 14:30 ALT Cancelled 09/20/16 14:30 Alkaline Phosphatase Cancelled 09/20/16 14:30 Total Protein Cancelled 09/20/16 14:30 Albumin Cancelled 09/20/16 14:30 Beta-Hydroxybutyrate 5.87 mmol/L (0.02-0.27) H 09/20/16 13:55 Assessment & Plan Assessment: DKA - pt presents with AG of 23 and positive beta-hydroxybutyrate. Received 10 units IV regular insulin in ED and insulin drip is started. Gap is trending in the right direction. Precipitating factor is unclear, query infection. BCx's drawn. Check CXR given crackles on exam (prior to fluid boluses). UA ordered ( it seems she does make some urine). Chest wall line is mildly erythematous. Discussed with Renal, who advises we hold fluids unless hypotensive. -admit to ICU on insulin drip per DKA protol -will defer typical DKA protocol fluid managemnet to avoid volume overload in setting of ESRD per renal -No IVF's per renal -Will need dextrose when BG <200 on insulin drip until gap closed -Q4H BMP -given line and reported fever, check blood cultures and cover with Vanco while awaiting Cx data -CXR, ua -check GI pathogen panel if she has diarrhea Acute encephalopathy - likely secondary to DKA / hyperglycemia, possibly infection H/O C diff - pt reports diarrhea, though is not mentating clearly so unclear if this is ongoing issue -check c diff if diarrhea recurs ESRD - dialyzed yesterday. She appears dry on exam. Discussed case with renal , who will consult and manage fluid needs. Potassium ok, no need for urgent dialysis at this time -HD per renal Anemia - likely secondary to CKD, hgb a bit lower than baseline. No e/o active bleeding. Hypertension - continue outpt medication regimen, dialysis per renal. Hyperlipidemia - cont statin Seizure disorder - cont renally dosed keppra, hold tramadol as this may lower seizure threshold especially during acute illness DVT PPLX - Heparin Full code Dispo - ICU, >60 minutes critical care provided at bedside and coordinating care
[2016-09-20 16:29] LABS: GLUCOSE 764 mg/dL (70-100)
[2016-09-20] MEDS ORDERED: ALTEPLASE 2 MG VIAL IVP PRN (16:29)
[2016-09-20] MEDS ORDERED: VANCOMYCIN HCL/NORMAL SALINE 250 ML IV ONE (17:00)
--- NOTE | 2016-09-20 18:09 | CPEKG ---
Heart Rate: 76 RR Interval: 789 P-R Interval: 148 QRSD Interval: 100 QT Interval: 432 QTC Interval: 486 P [place]: 50 QRS [place]: 67 T Wave [place]: 69 EKG Severity - BORDERLINE ECG - EKG Impression: SINUS RHYTHM EKG Impression: BORDERLINE T ABNORMALITIES, ANT-LAT LEADS EKG Impression: BORDERLINE PROLONGED QT INTERVAL Electronically Signed By: David Young 21-Sep-2016 08:59:59
[2016-09-20] MEDS: CALCIUM ACETATE 667 MG CAP PO SCH ×2 (18:44→21:11)
[2016-09-20] MEDS: CALCIUM CARBONATE 500 MG CHEWABLE TAB PO SCH (18:44)
[2016-09-20] MEDS: hydrALAZINE 10 MG TAB PO SCH ×2 (18:46→21:11)
[2016-09-20 18:50] LABS: ANION GAP 16 mEq/L (8-16); CALCIUM 8.9 mg/dL (8.5-10.4); CARBON DIOXIDE 19 mEq/l (22-31); CHLORIDE 92 mEq/L (97-110); GLOMERULAR FILTRATION RATE 9; GLUCOSE 450 mg/dL (70-100); SODIUM 127 mEq/L (134-144)
[2016-09-20] MEDS ORDERED: NON-FORMULARY NEW DRUG (Simvastatin [Zocor] 20 MG) PO SCH (21:00)
[2016-09-20] MEDS: METOPROLOL TARTRATE 100 MG TAB PO SCH (21:10)
[2016-09-20] MEDS: ATORVASTATIN CALCIUM 10 MG TAB PO SCH (21:10)
[2016-09-20] MEDS: PREGABALIN 50 MG CAP PO SCH (21:10)
[2016-09-20] MEDS ORDERED: HEPARIN 5,000 UNIT/0.5 ML SYR SC SCH (22:00)
--- NOTE | 2016-09-20 22:22 | SOAPPROG ---
SOAP Progress Note Assessment/Plan: Assessment:Plan: ESRD-dialysis in morning -normally undergoes the TThSa at the [facility] [phone] -appears euvolemic -anuric -does not need IVF -sats okay on room air with normal BP and pulse -no significant volume depletion or volume overload on exam DKA-etiology unclear, but she has been a brittle diabetic that rapidly goes into this state in spite of her living in a nursing facility -she has been cultured and placed on empiric vanco due to the potential risk of line infection -it has been 7 weeks since her last admit, which is much better than what she had been experiencing before in regards to readmissions -as she has not had any osmotic diuresis related to her hypercalcemia and DKA , IVF are not indicated -aggressive IVF would lead to volume overload, potentially resulting in need of emergency dialysis -treat with insulin as you are doing -does not need K replacement Access-has had difficulty maintaining consistent cannulation of her AVF without infiltration -she has had a catheter in place to allow for regular dialysis -she should get a fistulagram to evaluate for restenosis of a complex, tight narrowing in her mid fistula prior to discharge -we will use her catheter for dialysis while she is an inpatient -AVF without signs of infection, although she has had a recent infiltration -she has evidence of recent venipuncture at AVF site -her AVF is functional and her LUE needs to be restricted GI-chronic GI issues -often states she has diarrhea, but this is often more consistent with loose stool h/o C. diff-avoid empiric and/or broad-spectrum antibiotics unless there are strong indications of infection Neuro-she is exhibiting the typical mental status changes she has with her DKA and hyperosmolar state -this should clear with correction of her hyperglycemia 09/20/16 22:23 Subjective: verbal, but slow to respond, speech clear, non-focal Objective: Vital Signs Temp Pulse Resp BP Pulse Ox 36.7 C 67 13 144/55 H 91 L 09/20/16 20:00 09/20/16 22:00 09/20/16 22:00 09/20/16 22:00 09/20/16 22:00 Laboratory Results 09/20/16 18:00 09/19/16 09/20/16 09/21/16 05:59 05:59 05:59 Intake Total 414 Output Total 0 Balance 414 Physical Exam - Physical Exam General Appearance: no apparent distress EENT: normal ENT inspection Neck: normal inspection Respiratory: lungs clear, normal breath sounds, No respiratory distress Cardiac/Chest: regular rate, rhythm, No diastolic murmur, No systolic murmur Abdomen: normal bowel sounds, non-tender, soft, No organomegaly, No pulsatile mass, No distended Skin: normal color, warm/dry, No cyanosis, No diaphoresis Extremities: other (Left upper arm AVF patent), No swelling Neuro/Psych: other (altered consistent with her elevated blood sugar) ICD10 Worksheet Patient Problems: Problems Problem Status Onset Diabetic ketoacidosis Acute ESRD (end stage renal disease) Acute C. difficile diarrhea Acute ~07/29/16
--- NOTE | 2016-09-20 23:33 | GCON ---
[f rep st] CONSULTATION NEPHROLOGY DATE OF CONSULTATION: 09/20/2016 REASON FOR CONSULTATION: End-stage renal disease, in need of dialysis. ASSESSMENT: 1. Diabetic ketoacidosis. 2. Hyperosmolar state with blood sugar of 900. 3. End-stage renal disease, on dialysis Sunday, , Sunday at the [facility]. 4. History of brittle type 1 diabetes, onset 20 years of age 5. Anemia. 6. History of placement of left upper extremity AV fistula by Dr. Frias on . 7. Placement of tunneled dialysis catheter for intermittent dialysis access due to difficulties with cannulating the patient's AV fistula consistently with recurrent and repetitive infiltrations. 8. 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 PLAN: 1. To treat DKA with insulin. 2. Avoid IV fluid resuscitation as the patient is euvolemic and has not experienced any osmotic diuresis as she is anuric. 3. Avoid IV's, blood pressures, blood draws in the patient's left arm. 4. To pursue fistulogram prior to discharge to see if there are new stenosis affecting attempts at recent cannulation. 5. Avoid Bactrim due to her Bactrim allergy. 6. Avoid broad-spectrum antibiotics due to her history of recurrent and difficult to eradicate C diff. 7. Culture as you are doing to evaluate for source of infection. 8. It is reasonable to initiate empiric vancomycin due to the patient's central venous catheter to cover for possible line infection triggering her DKA. 9. Supportive care due to the patient's encephalopathy, the degree of which is typical of the patient's past experience when she has had DKA and hyperosmolar state. HISTORY: The patient is a pleasant 56-year-old type 1 diabetic who is on dialysis Sunday, , Sunday at the [facility]. She currently is living at [facility]. She was last hospitalized here from 07/26 to 08/02/2016 with elevated blood sugars and with presence of C diff in her stool on 07/29/2016. She has had repeated hospitalizations related to [id number] diabetes. These have resulted at times in a profound change in her neuro status, which can persist for many weeks after the event. The most significant of those, I believe was in September,, where she was found down with a hypoglycemic event at home. This episode was so severe that it resulted in a prolonged hospitalization at [facility] with marked neurologic impairment. She slowly regained function to achieve a level at or close to her prior baseline after many weeks in both the [place] [facility]. Over the last year, she was in and out of the hospital repeatedly at [facility] related to access related infections, hypo and hyperglycemia as well as C. diff diarrhea. Since being at [facility], these recurrent episodes and hospitalizations have improved. Her last hospitalization was a full 7 weeks ago. At times up in [place], she was so unstable that she could only remain out of the hospital for 12-24 hours at a time. She has end-stage renal disease secondary to type 1 diabetes. She has had diabetes since 20 years of age. She has had complications of retinopathy, neuropathy and nephropathy. She has had diabetic foot ulcers and Charcot changes to her feet. This has led to surgeries including a right mid-foot amputation.. She has had dialysis catheter related infections. She was initially started on hemodialysis through a tunneled catheter. She eventually had an AV fistula constructed by Dr. Frias on 10/09/2014. This left upper extremity brachial basilic fistula has been difficult to use, as it was slow to mature. The patient has undergone fistulogram for the diagnosis and treatment of a severe mid segment venous stenosis. These have been dilated successfully in the past, which has resulted in improvement in the ability to cannulate her fistula, although given her recurrent chronic medical events, effective use of her fistula has been very difficult. With these infections she has had complications of C. diff as described. She has had symptoms suggestive of IBS well before she ever reached ESRD. She has had a VRE urinary tract infection with urosepsis. She is currently dialyzing through a left-sided tunneled dialysis catheter that was placed on 06/29/2016. She has had a recent infiltration of her fistula in the last week or so. She had a previous peritoneal dialysis catheter placed, but per my recollection it was not able to be used due to the patient's difficulty with her other medical problems. That was placed back on 09/06/2013. It has subsequently been removed. Other medical problems include hyperparathyroidism, anemia, hypoalbuminemia and hypertension. PAST SURGICAL HISTORY: 1. Peritoneal dialysis catheter 09/06/2013. Multiple temporary and tunneled dialysis catheters. 2. Left upper extremity AV fistula 10/09/[address] Frias. 3. Angioplasties to her AV fistula performed at [facility] due to stenosis. 4. Tubal ligation 1981 5. Right foot 2008 6. R mid foot amputation 7. Hammer toe MEDICATIONS: At home have been tramadol 50 mg for pain up to 4 times daily, simvastatin 20 mg at bedtime, Lyrica 50 mg at bedtime, MiraLAX 17 g daily, metoprolol tartrate 100 mg twice daily, famotidine 20 mg daily, losartan 100 mg daily, insulin in the form of Lantus 4 units subcu daily, lispro 8 units in the morning, 6 units at 12, and 6 units at bedtime, Lexapro 20 mg daily, Keppra 500 mg daily, hydralazine 10 mg tablets taking evidently 35 mg 3 times daily, herbal supplement daily, iron 1 tablet orally daily, DuoNeb, calcium carbonate 500 mg with meals, calcium acetate 1 with meals, aspirin 81 mg daily, Norvasc 5 mg daily. She also takes another 8 units of lispro insulin at 1700 daily so she takes lispro insulin 8 in the morning, 12 at noon, 8 at 5 p.m. and 6 at bedtime. ALLERGIES: Include meperidine and trimethoprim sulfa. FAMILY HISTORY: Noncontributory. Father with COPD. SOCIAL HISTORY: Noncontributory. She currently is living at [facility] due to her complex medical condition and the difficulty to regulate that even in the most stringent of environments. She is and has had children. 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 REVIEW OF SYSTEMS: Limited due to patient's encephalopathy. PHYSICAL EXAMINATION: VITAL SIGNS: Afebrile with a temp of 36.7, pulse 67, respirations 13, blood pressure 144/55, saturating 91% to 98% on room air. GENERAL APPEARANCE: No apparent distress. She is verbal, but needs prompting. Her responses are slow, but her speech is clear. She denies diarrhea to me, although there has been confusion with her history due to the patient's encephalopathy. She was seen yesterday by me on dialysis, and she was bright in mood and affect, and denied any physical complaints. She has been eating well and has been staying out of the hospital for the last 7 weeks, which was the longest time that she has remained out of the hospital in recent history. HEENT: Unremarkable. NECK: Unremarkable. HEART: Regular with no extra heart sounds. LUNGS: Slightly decreased at the bases, but otherwise clear. ABDOMEN: Benign. EXTREMITIES: Free of edema. Left upper arm AV fistula is patent. There appears to have been a recent vena puncture in this area. There was no bleeding, bruising, or other sorts of hematoma in that area. She does have a resolving infiltration above this site in the mid fistula. Tunneled dialysis catheter is unremarkable. LABORATORY DATA: Shows she is anemic with hematocrit of 30, which is target for a dialysis patient. Blood gas on admission showed a pH is 7.2 with lactic acid level of 2.3 and an anion gap on admission of 23. With correction of her hyperglycemia, her anion gap has gone down to 16. Her blood sugar has gone down from 914 to 450. She has hyponatremia consistent with a pseudo hyponatremia related to her hyperglycemia. She is normokalemic. ASSESSMENT: Diabetic ketoacidosis in an end-stage renal disease patient who is anuric. She does not need volume resuscitation. She appears euvolemic. Given the fact she makes no urine, she does not have any osmotic diuresis to correct. Therefore, she should simply have IV fluids at [facility] to help deliver the insulin that she needs. Any electrolyte problems will resolve with treatment of her hyperglycemia. The insulin drip seems to be working, both improving her hyponatremia, correcting her anion gap and not resulting in any changes in potassium balance. I would continue the present management. Her left upper arm AV fistula is patent and is usable. Her left upper arm should be restricted from cannulations with IVs or blood draws and blood pressure should certainly be avoided on that side. Given her recurrent infiltrations and prior stenoses in her AV fistula, she should have a fistulogram prior to discharge to evaluate for restenoses and to see if this can help with the issues we have had with both cannulation and with infiltrations. It would be ideal to remove her dialysis catheter if we can get that fistula working reliably for any meaningful length of time. It is not clear what the trigger of her DKA was. I saw her yesterday in dialysis, and she looked great. She had not been in the hospital for 7 full weeks. She now reverts to an acute metabolic crisis. Certainly, this could simply be due to problems with the effect of her insulin. Given her central venous access, I think it is reasonable to culture her and cover her with vancomycin. She has had C diff in the past. Care must be taken to avoid giving her broad- spectrum antibiotics. When she has had C diff, it appears to have occurred spontaneously at times without even any antibiotic therapy. It has been difficult to clear and has resulted in prolonged hospitalizations. She has encephalopathy. She gets symptomatic when she gets hyperosmolar and goes into DKA. This should clear with correction of her blood sugar. Copy requested to: [facility] /[id number]
[2016-09-20 23:38] LABS: ANION GAP 12 mEq/L (8-16); CALCIUM 9.1 mg/dL (8.5-10.4); CARBON DIOXIDE 22 mEq/l (22-31); CHLORIDE 95 mEq/L (97-110); GLOMERULAR FILTRATION RATE 9; POTASSIUM 4.1 mEq/L (3.5-5.2); SODIUM 129 mEq/L (134-144)
[2016-09-20 23:46] LABS: GLUCOSE 37 mg/dL (70-100)
[2016-09-21] MEDS ORDERED: INSULIN GLARGINE 100 UNITS/ML SYRINGE SC ONE (00:30)
[2016-09-21 04:39] LABS: HEMATOCRIT 28.3 % (38.0-47.0); HEMOGLOBIN 9.5 g/dL (12.6-16.3); MEAN CELL HEMOGLOBIN 30.2 pg (27.9-34.1); MEAN CELL HEMOGLOBIN CONCENTR. 33.6 g/dL (32.4-36.7); MEAN CELL VOLUME 89.8 fL (81.5-99.8); RED BLOOD CELL COUNT 3.15 10^6/uL (4.18-5.33); RED CELL DISTRIBUTION WIDTH 14.7 % (11.5-15.2)
[2016-09-21 04:44] LABS: ANION GAP 18 mEq/L (8-16); CARBON DIOXIDE 17 mEq/l (22-31); CHLORIDE 96 mEq/L (97-110); CREATININE 5.5 mg/dL (0.6-1.0); GLOMERULAR FILTRATION RATE 8; GLUCOSE 164 mg/dL (70-100); POTASSIUM 4.1 mEq/L (3.5-5.2); SODIUM 131 mEq/L (134-144)
[2016-09-21] MEDS ORDERED: D50W 25 GM/50 ML SYR IVP PRN (08:37)
[2016-09-21] MEDS ORDERED: NON-FORMULARY NEW DRUG (Losartan Potassium [Cozaar] 100 MG) PO SCH (09:00)
[2016-09-21] MEDS ORDERED: INSULIN GLARGINE HUM REC ANLOG 6 UNIT SQ SCH (09:00)
[2016-09-21] MEDS ORDERED: NON-FORMULARY NEW DRUG (Escitalopram Oxalate [Lexapro] 20 MG) PO SCH (09:00)
[2016-09-21 09:07] LABS: HEMOGLOBIN A1C 10.2 % (4.0-6.0)
[2016-09-21 09:08] LABS: ANION GAP 14 mEq/L (8-16); CALCIUM 9.1 mg/dL (8.5-10.4); CARBON DIOXIDE 21 mEq/l (22-31); CHLORIDE 99 mEq/L (97-110); CREATININE 2.2 mg/dL (0.6-1.0); GLOMERULAR FILTRATION RATE 23; GLUCOSE 266 mg/dL (70-100); POTASSIUM 3.7 mEq/L (3.5-5.2); SODIUM 134 mEq/L (134-144)
[2016-09-21] MEDS: INSULIN LISPRO 100 UNIT/ML SC SCH ×3 (09:21→18:14)
[2016-09-21] MEDS: CALCIUM CARBONATE 500 MG CHEWABLE TAB PO SCH ×3 (10:28→18:45)
[2016-09-21] MEDS: hydrALAZINE 10 MG TAB PO SCH ×3 (10:30→21:04)
[2016-09-21] MEDS: ESCITALOPRAM OXALATE 10 MG TAB PO SCH (10:30)
[2016-09-21] MEDS: FAMOTIDINE 20 MG TAB PO SCH (10:30)
[2016-09-21] MEDS: levETIRAcetam 500 MG TAB PO SCH (10:31)
[2016-09-21] MEDS: amLODIPine BESYLATE 5 MG TAB PO SCH (10:31)
[2016-09-21] MEDS: FERROUS SULFATE 325 MG TAB PO SCH (10:32)
[2016-09-21] MEDS: INSULIN GLARGINE 100 UNITS/ML SYRINGE SC SCH ×2 (10:33→21:02)
[2016-09-21] MEDS: CALCIUM ACETATE 667 MG CAP PO SCH ×3 (10:33→21:02)
[2016-09-21] MEDS: ASPIRIN EC 81 MG TAB PO SCH (10:33)
[2016-09-21] MEDS: METOPROLOL TARTRATE 100 MG TAB PO SCH ×2 (10:43→21:02)
[2016-09-21] MEDS: LOSARTAN POTASSIUM 50 MG TAB PO SCH (10:43)
[2016-09-21] MEDS: HEPARIN 5,000 UNIT/0.5 ML SYR SC SCH ×2 (10:44→21:02)
[2016-09-21] MEDS ORDERED: INSULIN LISPRO 100 UNIT/ML SC SCH (12:00)
[2016-09-21 13:02] LABS: ANION GAP 8 mEq/L (8-16); CALCIUM 9.4 mg/dL (8.5-10.4); CARBON DIOXIDE 24 mEq/l (22-31); CHLORIDE 98 mEq/L (97-110); CREATININE 2.4 mg/dL (0.6-1.0); GLOMERULAR FILTRATION RATE 21; GLUCOSE 151 mg/dL (70-100); POTASSIUM 3.7 mEq/L (3.5-5.2); SODIUM 130 mEq/L (134-144)
--- NOTE | 2016-09-21 14:08 | HOSPPROG ---
Hospitalist Progress Note Assessment/Plan: DKA - Gap closed. Off insulin drip, on SC insulin. Source unclear, ?poor glycemic control vs infection. -ac/hs bg's and basal / bolus insulin -cont vanc for possibility of line infection while awaiting BCx's Acute encephalopathy - resolved, likely secondary to DKA / hyperglycemia, possibly infection H/O C diff - no ongoing diarrhea ESRD - dialyzed today. -HD per renal Anemia - likely secondary to CKD, hgb a bit lower than baseline. No e/o active bleeding. Hypertension - continue outpt medication regimen, dialysis per renal. Hyperlipidemia - cont statin Seizure disorder - cont renally dosed keppra, hold tramadol as this may lower seizure threshold especially during acute illness DVT PPLX - Heparin Full code Dispo - cont inpt, transfer to med surg Subjective: Pt feels better. Denies watery diarrhea, has had some soft BM's, which she states is her baseline. No fevers. No N/V or abdominal pain. Objective: Vital Signs Temp Pulse Resp BP Pulse Ox 37.0 C 75 16 167/51 H 91 L 09/21/16 12:00 09/21/16 13:52 09/21/16 13:52 09/21/16 13:52 09/21/16 13:52 Laboratory Results 09/21/16 04:15 09/21/16 12:37 09/20/16 09/21/16 09/22/16 05:59 05:59 05:59 Intake Total 1296 Output Total 0 Balance 1296 - Physical Exam Constitutional: no apparent distress Eyes: PERRL Ears, Nose, Mouth, Throat: moist mucous membranes Cardiovascular: regular rate and rhythym, no murmur, rub, or gallop Respiratory: no respiratory distress, clear to auscultation Gastrointestinal: normoactive bowel sounds, soft, non-tender abdomen Skin: warm Musculoskeletal: full muscle strength Neurologic: AAOx3 Psychiatric: interacting appropriately ICD10 Worksheet Patient Problems: Problems Problem Status Onset Diabetic ketoacidosis Acute ESRD (end stage renal disease) Acute C. difficile diarrhea Acute ~07/29/16
[2016-09-21] MEDS ORDERED: VANCOMYCIN HCL/NORMAL SALINE 250 ML IV ONE (16:00)
--- NOTE | 2016-09-21 18:38 | SOAPPROG ---
SOAP Progress Note Assessment/Plan: Assessment: 1. ESRD Stable HD earlier today 2. DKA Resolved. Afebrile, no positive cultures at this point. Line site ok. On Vanco. 3. BP High, but unclear if readings are accurate. Follow, prn clonidine as needed. 4. Chronic C diff No diarrhea at this point. Plan: 09/21/16 18:35 09/21/16 18:37 Objective: Vital Signs Temp Pulse Resp BP Pulse Ox 36.7 C 74 13 165/73 H 92 09/21/16 16:21 09/21/16 16:21 09/21/16 16:21 09/21/16 16:00 09/21/16 16:21 Laboratory Results 09/21/16 04:15 09/21/16 12:37 09/20/16 09/21/16 09/22/16 05:59 05:59 05:59 Intake Total 1296 Output Total 0 Balance 1296 Physical Exam - Physical Exam General Appearance: no apparent distress Respiratory: lungs clear Cardiac/Chest: regular rate, rhythm Extremities: other (no thigh edema) Neuro/Psych: oriented x 3 ICD10 Worksheet Patient Problems: Problems Problem Status Onset Diabetic ketoacidosis Acute ESRD (end stage renal disease) Acute C. difficile diarrhea Acute ~07/29/16
[2016-09-21] MEDS: PREGABALIN 50 MG CAP PO SCH (21:02)
[2016-09-21] MEDS: ATORVASTATIN CALCIUM 10 MG TAB PO SCH (21:03)
[2016-09-22 05:52] LABS: CALCIUM 9.4 mg/dL (8.5-10.4); CARBON DIOXIDE 27 mEq/l (22-31); CHLORIDE 100 mEq/L (97-110); CREATININE 3.7 mg/dL (0.6-1.0); GLOMERULAR FILTRATION RATE 13; GLUCOSE 43 mg/dL (70-100); SODIUM 134 mEq/L (134-144)
[2016-09-22 06:04] LABS: ANION GAP 7 mEq/L (8-16); POTASSIUM 3.7 mEq/L (3.5-5.2)
[2016-09-22] MEDS: INSULIN LISPRO 100 UNIT/ML SC SCH ×2 (08:34→13:54)
[2016-09-22] MEDS: LOSARTAN POTASSIUM 50 MG TAB PO SCH (08:35)
[2016-09-22] MEDS: hydrALAZINE 10 MG TAB PO SCH ×2 (08:35→15:58)
[2016-09-22] MEDS: CALCIUM ACETATE 667 MG CAP PO SCH ×2 (08:36→15:58)
[2016-09-22] MEDS: ESCITALOPRAM OXALATE 10 MG TAB PO SCH (08:36)
[2016-09-22] MEDS: amLODIPine BESYLATE 5 MG TAB PO SCH (08:36)
[2016-09-22] MEDS: FAMOTIDINE 20 MG TAB PO SCH (08:36)
[2016-09-22] MEDS: levETIRAcetam 500 MG TAB PO SCH (08:36)
[2016-09-22] MEDS: METOPROLOL TARTRATE 100 MG TAB PO SCH (08:36)
[2016-09-22] MEDS: ASPIRIN EC 81 MG TAB PO SCH (08:36)
[2016-09-22] MEDS: CALCIUM CARBONATE 500 MG CHEWABLE TAB PO SCH ×2 (08:36→13:55)
[2016-09-22] MEDS: FERROUS SULFATE 325 MG TAB PO SCH (08:36)
[2016-09-22] MEDS: HEPARIN 5,000 UNIT/0.5 ML SYR SC SCH (08:37)
[2016-09-22] MEDS: INSULIN GLARGINE 100 UNITS/ML SYRINGE SC SCH (10:00)
--- NOTE | 2016-09-22 10:27 | SOAPPROG ---
SOAP Progress Note Assessment/Plan: Assessment/Plan: ESRD: on HD TTS. - Will do HD again tomorrow if still here, otherwise can go to outpatient unit. Anemia: Hgb ok at 9.5, pt can get epo and iron per protocol at outpatient unit. HTN: BP readings may not be accurate, continue current meds. Access: has tunneled dialysis catheter, getting fistulogram today. Subjective: No acute events overnight, HD done yesterday with no issues. Pt states she is feeling ok today, has no complaints. Getting fistulogram today. Objective: Vital Signs Temp Pulse Resp BP Pulse Ox 36.5 C 83 10 L 167/83 H 97 09/22/16 07:15 09/22/16 07:15 09/22/16 07:15 09/22/16 07:15 09/22/16 07:15 Laboratory Results 09/21/16 04:15 09/22/16 04:50 09/21/16 09/22/16 09/23/16 05:59 05:59 05:59 Intake Total 1296 150 236 Output Total 0 200 Balance 1296 -50 236 General: alert and oriented, no acute distress Eyes; EOMI, PERRL OP: Clear CV: RRR Resp: nonlabored respirations Abd: Soft, ND Ext: trace edema BLE Neuro: CN II-XII grossly intact, no asterixis Psych: cooperative, bright affect Access: LIJ tunneled catheter, LUE AVF with thrill and bruit ICD10 Worksheet Patient Problems: Problems Problem Status Onset Diabetic ketoacidosis Acute ESRD (end stage renal disease) Acute C. difficile diarrhea Acute ~07/29/16
[2016-09-22 10:58] LABS: COLOR YELLOW; LEUKOCYTE ESTERASE,URINE 3+ (NEGATIVE); NITRITE,URINE NEGATIVE (NEGATIVE)
[2016-09-22 11:06] LABS: BACTERIA 1+ /hpf (NONE SEEN); RBC,URINE 25-50 /hpf (0-3); WBC,URINE 50-182 /hpf (0-3)
[2016-09-22] MEDS ORDERED: NALOXONE HCL 0.4 MG/ML INJ ONE (12:00)
[2016-09-22] MEDS ORDERED: fentaNYL 100 MCG/2 ML INJ ONE (12:00)
[2016-09-22] MEDS ORDERED: HEPARIN 10,000 UNIT/10 ML MDV ONE (12:45)
[2016-09-22] MEDS ORDERED: PROTAMINE SULFATE 50 MG/5 ML VIAL IVP ONE (12:53)
[2016-09-22] MEDS ORDERED: IOPAMIDOL (ISOVUE-300) 100 ML BTL ONE (12:54)
--- NOTE | 2016-09-22 13:09 | POSTOPPROG ---
Post Op Note Date of Operation: 09/22/16 Surgeon: Regis Laguerre Anesthesia: Other (Specify) (IV fentanyl) Pre-op Diagnosis: Poorly functioning AV fistula of upper left arm Post-op Diagnosis: Venous stenoses Indication: Difficult access Procedure: Angiography and balloon angioplasty of LUE fistula vein Findings: Stenoses and pseudoaneurysm Inf/Abcess present in the surg proc area at time of surgery?: No Complications: 0
[2016-09-22 13:37] VITALS: RESP 17
[2016-09-22 14:48] VITALS: BP 148/83; PULSE 68; TEMP 100.1; O2SAT 99
--- NOTE | 2016-09-22 15:48 | PDIAF ---
- Diagnosis Diagnosis: Type 1 DM, ESRD Code Status: Full Code - Medication Management Discharge Medications: Medications to Continue on Transfer Acetaminophen [Tylenol 325mg (*)] 650 mg PO Q8 PRN 09/20/16 [Last Taken Unknown] Amlodipine Besylate [Norvasc] 5 mg PO DAILY 09/20/16 [Last Taken Unknown] Aspirin EC [Aspirin EC 81 mg (*)] 81 mg PO DAILY 09/20/16 [Last Taken Unknown] Calcium Acetate [Phoslo (*)] 667 mg PO TID 09/20/16 [Last Taken Unknown] Calcium Carbonate [Tums 500MG (*)] 600 mg PO TIDMEAL 09/20/16 [Last Taken Unknown] Dextrose [Glutose 15] 1 kristina PO Q1H PRN 09/20/16 [Last Taken Unknown] Escitalopram Oxalate [Lexapro] 20 mg PO DAILY 09/20/16 [Last Taken Unknown] Famotidine [Pepcid 20 MG (*)] 20 mg PO DAILY 09/20/16 [Last Taken Unknown] Ferrous Sulfate [Ferrous Sulf 325 MG (*)] 325 mg PO DAILY 09/20/16 [Last Taken Unknown] Herbals/Supplements -Info Only 1 ea PO DAILY 09/20/16 [Last Taken Unknown] Insulin Lispro [Humalog] 6 unit SQ DAILY@12 09/20/16 [Last Taken 09/20/16] Insulin Lispro [Humalog] 8 unit SQ DAILY 09/20/16 [Last Taken 09/20/16] Insulin Lispro [Humalog] 8 unit SQ DAILY@17 09/20/16 [Last Taken 09/19/16] Ipratropium/Albuterol [Duoneb (*)] 3 ml IH Q4H PRN 09/20/16 [Last Taken Unknown] Losartan Potassium [Cozaar] 100 mg PO DAILY MDD HOLD IF SBP<120 09/20/16 [Last Taken Unknown] Metoprolol Tartrate [Lopressor 100 mg (*)] 100 mg PO BID 09/20/16 [Last Taken Unknown] Ondansetron HCl [Zofran] 4 mg PO Q4H PRN 09/20/16 [Last Taken Unknown] Polyethylene Glycol 3350 [Miralax 17 gm (*)] 17 gm PO DAILY PRN 09/20/16 [Last Taken Unknown] Pregabalin [Lyrica 50mg (*)] 50 mg PO HS 09/20/16 [Last Taken Unknown] Simvastatin [Zocor] 20 mg PO HS 09/20/16 [Last Taken Unknown] hydrALAZINE [Apresoline 10 mg (*)] 35 mg PO TID 09/20/16 [Last Taken Unknown] levETIRAcetam [Keppra 500 mg (*)] 500 mg PO DAILY 09/20/16 [Last Taken Unknown] traMADol [Ultram 50 mg (*)] 50 mg PO Q6 PRN 09/20/16 [Last Taken Unknown] Insulin Glargine,Hum.rec.anlog [Lantus Solostar] 6 unit SQ BID #4 ml 09/22/16 [ Last Taken Unknown] Discharge Medications: Refer to the Discharge Home Medication list for PRN reason. PICC Care - Routine: N/A - Orders Services needed: Registered Nurse, Physical Therapy, Occupational Therapy Oxygen: 2 LPM Diet Recommendation: ADA 2000 consistent carb, other (renal diet) Additional: Do not use left arm fistula until 09/29/2016 for dialysis. Use tunneled catheter until then. - Follow Up Care Current Providers and Referrals: Patient,NotPresent [Unknown] - As per Instructions Emeka Polanco MD [Medical Doctor] -
--- NOTE | 2016-09-22 20:05 | GDS ---
[f rep st] DISCHARGE SUMMARY DISCHARGE DIAGNOSES: 1. Diabetic ketoacidosis. 2. Type 1 diabetes. 3. Acute encephalopathy, resolved. 4. End-stage renal disease, dialysis dependent. 5. History of Clostridium difficile. 6. Chronic anemia. 7. Hypertension. 8. Hyperlipidemia. 9. Seizure disorder. 10. 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 The patient s hould not use the left AV fistula until September 29, 2016, and instead use tunnelled catheter in the [facility]. CONSULTANTS: Dr. Emeka Polanco, Nephrology. IMAGING PROCEDURES/PROCEDURES: 1. PICC line insertion, September 20, 2016. 2. Angiography of the left upper extremity arteriovenous fistula, and balloon angioplasty of the le ft cephalic vein for multiple stenoses. HISTORY: For details, please see the History and Physical dated September 20, 2016. In brief, the patien josh is a 56-year-old female, with type 1 diabetes mellitus and end-stage renal disease, on dialysis, w ho presented to the emergency department from [facility] with weakness, nausea, vomiting and hype rglycemia. She was found to be in diabetic ketoacidosis and was admitted to the hospital for furthe r management. HOSPITAL COURSE: The patient was admitted to the ICU. She presented with an anion gap of 23, and a positive beta hydroxybutyrate. She received IV regular insulin bolus and was started on insulin dr ip. She was given a very minimal amount of IV fluids in the ER, and further IV fluids were deferred given her end-stage renal disease, after consultation with Nephrology. Her gap closed and she was transitioned to subcutaneous insulin. She has been eating well and has returned to her baseline fun ctional status. Her encephalopathy has resolved. There was some concern for an infectious etiology of her DKA, especially with her left chest tunnelled catheter. She was treated with IV vancomycin for 2 days, and her blood cultures remained negative to date. She received hemod[facility]. She did have an abnormal urinalysis on the day of discharge and has reported some mild dysuria. However, she has been afebrile, without leukocytosis. A urine culture is pending, and we have opted to avoid antibiotics unless she has a proven UTI, given her high risk for recurrent C dif ficile. As above, she had angioplasty of her left AV fistula, and this should not be used until Otto e 16, 2017. She has a temporary tunneled catheter to be used in the meantime. DISPOSITION: [facility]. FOLLOWUP: 1. Dr. Emeka Polanco with [facility] for ongoing dialysis needs. 2. Primary care. PENDING STUDIES: She currently has a urine culture pending. Blood cultures are negative to date at the time of discharge; this should be followed up to ensure ongoing negative results. DISCHARGE MEDICATIONS: Please see DNA13 for complete updated outpatient medication list. There are no new medications on discharge. /[id number]/MODL
== END 2016-09-22 17:17 | DRG 628 ==
LOC: EDUNIT# → F2N 16:06 → F2W 09-21 16:19
PROVIDERS: ADMIT Hospitalist; ATTEND Hospitalist
PROC: 057F3ZZ Dilation of Left Cephalic Vein, Percutaneous Approach (ICD-10-PCS; principal; 2006-09-22)
PROC: 02HV33Z Insertion of Infusion Device into Superior Vena Cava, Percutaneous Approach (ICD-10-PCS; 2016-09-20)
PROC: 5A1D60Z (ICD-10-PCS; 2016-09-21)
DX: E10.10 Type 1 diabetes mellitus with ketoacidosis without coma (principal); E10.22 Type 1 diabetes mellitus with diabetic chronic kidney disease; I12.0 Hypertensive chronic kidney disease with stage 5 chronic kidney disease or end stage renal disease; N18.6 End stage renal disease; D63.1 Anemia in chronic kidney disease; I87.1 Compression of vein; G93.40 Encephalopathy, unspecified; E78.5 Hyperlipidemia, unspecified; G40.909 Epilepsy, unspecified, not intractable, without status epilepticus; Z99.2 Dependence on renal dialysis
CPT/HCPCS: 82947-QW; 87350-90; 92523-GN; 97116-GP; 97162-GP; 97166-GO; 97530-GP; C1725; C1751; C1769; G8978-GP-CL; G8979-GP-CJ; G8987-GO-CK; G8988-GO-CJ; G9165-GN-CH; G9166-GN-CH; G9167-GN-CH; J1644; J1815; J2310; J2405; J2720; J3010; J3370; Q9967

== ENCOUNTER → 2016-12-12 | Outpatient (CLI) | payer OTHER, MEDICAID | LOC: FIMAGING 13:37 | DX: R51 Headache (principal); R41.0 Disorientation, unspecified ==

== ENCOUNTER 2016-12-15 11:46 | Inpatient (IN) | payer OTHER, MEDICAID ==
[2016-12-15] MEDS ORDERED: NS 1,000 ML IV ONE ×2 (12:06→12:53)
[2016-12-15 12:21] LABS: % IMMATURE GRANULYOCYTES 0.4 % (0.0-1.1); ABSOLUTE IMMATURE GRANULOCYTES 0.03 10^3/uL (0.00-0.10); ADD DIFF? NO; ADD MORPH? NO; ADD SCAN? NO; ATYPICAL LYMPHOCYTE FLAG 10 (0-99); FRAGMENT RBC FLAG 0 (0-99); HEMATOCRIT 30.2 % (38.0-47.0); HEMOGLOBIN 9.9 g/dL (12.6-16.3); LEFT SHIFT FLG 0 (0-99); LIPEMIA HEMOLYSIS FLAG 80 (0-99); MEAN CELL HEMOGLOBIN 31.1 pg (27.9-34.1); MEAN CELL HEMOGLOBIN CONCENTR. 32.8 g/dL (32.4-36.7); MEAN PLATELET VOLUME 10.5 fL (8.7-11.7); PLATELET CLUMPS FLAG 0 (0-99); PLATELET COUNT 269 10^3/uL (150-400); RED BLOOD CELL COUNT 3.18 10^6/uL (4.18-5.33); RED CELL DISTRIBUTION WIDTH 13.1 % (11.5-15.2)
[2016-12-15 12:28] LABS: ANION GAP 18 mEq/L (8-16); CALCIUM 9.6 mg/dL (8.5-10.4); CARBON DIOXIDE 16 mEq/l (22-31); CHLORIDE 91 mEq/L (97-110); CREATININE 6.6 mg/dL (0.6-1.0); GLOMERULAR FILTRATION RATE 6; POTASSIUM 5.6 mEq/L (3.5-5.2); SODIUM 125 mEq/L (134-144)
--- NOTE | 2016-12-15 12:39 | EDPHY ---
H & P Stated Complaint: Hyperglycemia HPI/ROS: CHIEF COMPLAINT: I do not feel good HISTORY OF PRESENT ILLNESS: This is a 56-year-old female with type 1 diabetes and end-stage renal disease on thrice weekly dialysis who was transferred from [facility] to the emergency department because of high blood sugar. She is unable to tell me anything specific other than that she doesn't feel good. She was diagnosed with C diff in July 2016 and thinks this might be contributing to her feeling poorly. She reports 3 diarrheal stools daily, no blood in her stool. She also reports frequent vomiting, not a new problem for her and not worse than usual. She did not complete her dialysis on Sunday; she was 1 hour short and ask them to stop dialysis because she did not feel good. She has not had dialysis today. She denies any recent fever. She has had a mild upper respiratory infection but denies shortness of breath, chest pain, or productive cough. Information from [facility] indicates that last night she was hypoglycemic and her insulin was held. This morning she had a blood sugar of over 600 and was given 12 units of regular insulin (slightly more than her usual morning dose ) along with 6 units of Lantus at 9:30 a.m. this morning. She persisted with hyperglycemia, prompting her transfer to the emergency department. REVIEW OF SYSTEMS: A ten point review of systems was performed and is negative with the exception of the items mentioned in the HPI. Past medical history: 1. Type 1 diabetes 2. End-stage renal disease on dialysis 3. Reported history of Clostridium difficile 4. Hypertension 5. Hyperlipidemia 6. Seizure disorder 7. Depression Past surgical history: Right foot transmetatarsal post tarsal amputation 2 years ago Dialysis catheter left arm Social history: She resides at [facility]. She does not use tobacco or alcohol products. General Appearance: Alert. Vital signs reviewed. Blood pressure 136/70. Room air pulse ox 89%. Repeat room air pulse ox is 93%. Afebrile. Eyes: Pupils equal and round, no conjunctival injection, no discharge. Anicteric. ENT, Mouth: Mucous membranes are dry, no oropharyngeal erythema or edema. Neck: No lymphadenopathy, supple. Respiratory: Lungs are clear to auscultation; no wheezes, rales, or rhonchi. Cardiovascular: Regular rate and rhythm; no murmur, rub, or gallop. Gastrointestinal: Abdomen is soft and nontender, no masses or organomegaly, bowel sounds normal. Skin: Warm and dry, no rashes on exposed skin, normal color. Back: Nontender to palpation over the thoracolumbar spine. No CVAT. Extremities: No lower extremity edema, no calf tenderness or swelling. Right foot with transmetatarsal amputation. Neurological: Alert and oriented to person, place, and situation. Moving upper extremities spontaneously. Cranial nerves II through XII are examined and are intact (visual acuity not tested). Strength is 4+ over 5 symmetric bilaterally with testing of all major motor groups. Sensation is intact to light touch over all 4 extremities. Deep tendon reflexes are 2+ in the biceps and knees bilaterally. Psychiatric: Normal affect. - Medical/Surgical History Hx Asthma: No Hx Chronic Respiratory Disease: No Hx Diabetes: Yes Hx Cardiac Disease: No Hx Renal Disease: Yes Hx Cirrhosis: No Hx Alcoholism: No Hx HIV/AIDS: No Hx Splenectomy or Spleen Trauma: No Other PMH: DM 2, anemia, ESRF, Cdiff - Social History Smoking Status: Former smoker Constitutional: Initial Vital Signs Temperature (C) 36.8 C 12/15/16 12:01 Heart Rate 83 12/15/16 12:01 Respiratory Rate 17 12/15/16 12:01 Blood Pressure 136/70 H 12/15/16 12:01 O2 Sat (%) 89 L 12/15/16 12:01 O2 Delivery Mode Room Air Allergies/Adverse Reactions: meperidine HCl [From Demerol] Allergy (Intermediate, Verified 09/01/13 15:37) PARANOID, HALLUCINATIONS sulfamethoxazole [From Bactrim] Allergy (Verified 07/26/16 11:27) trimethoprim [From Bactrim] Allergy (Verified 07/26/16 11:27) Home Medications: Medication Instructions Recorded Acetaminophen [Tylenol 325mg (*)] 650 mg PO Q8 PRN 09/20/16 Amlodipine Besylate [Norvasc] 5 mg PO HS 09/20/16 Aspirin EC [Aspirin EC 81 mg (*)] 81 mg PO DAILY 09/20/16 Dextrose [Glutose 15] 1 kristina PO Q1H PRN 09/20/16 Famotidine [Pepcid 20 MG (*)] 20 mg PO DAILY 09/20/16 Ferrous Sulfate [Ferrous Sulf 325 325 mg PO DAILY 09/20/16 MG (*)] Herbals/Supplements -Info Only 1 ea PO DAILY 09/20/16 Insulin Lispro [Humalog] 6 unit SQ DAILY@12 09/20/16 Insulin Lispro [Humalog] 8 unit SQ DAILY 09/20/16 Insulin Lispro [Humalog] 10 unit SQ DAILY@17 09/20/16 Ipratropium/Albuterol [Duoneb (*)] 3 ml IH Q4H PRN 09/20/16 Losartan Potassium [Cozaar] 100 mg PO DAILY MDD HOLD IF SBP<120 09/20/16 Metoprolol Tartrate [Lopressor 100 100 mg PO BID 09/20/16 mg (*)] Ondansetron HCl [Zofran] 4 mg PO Q4H PRN 09/20/16 Polyethylene Glycol 3350 [Miralax 17 gm PO DAILY PRN 09/20/16 17 gm (*)] Pregabalin [Lyrica 50mg (*)] 50 mg PO HS 09/20/16 Simvastatin [Zocor] 20 mg PO HS 09/20/16 hydrALAZINE [Apresoline 10 mg (*)] 35 mg PO TID 09/20/16 levETIRAcetam [Keppra 500 mg (*)] 500 mg PO HS 09/20/16 Acetaminophen [Tylenol ES 500 mg 1,000 mg PO [facility] 12/15/16 (*)] Escitalopram Oxalate [Lexapro 10 10 mg PO DAILY 12/15/16 MG] Glucagon,Human Recombinant 1 mg IM ONCE PRN 12/15/16 [Glucagon Emergency Kit] Hydrocodone/Acetaminophen [[place] 1 - 2 tab PO Q4HRS PRN 12/15/16 5/325 (*)] Insulin Glargine,Hum.rec.anlog 6 unit SQ BID 12/15/16 [Lantus Solostar] levETIRAcetam [Keppra 250 mg (*)] 250 mg PO [facility] 12/15/16 Medical Decision Making ED Course/Re-evaluation: The 56-year-old female with end-stage renal disease and type 1 diabetes who presents with diabetic ketoacidosis. Have not found evidence of an infection during her stay in the emergency department, however, although she reportedly makes some urine, urinalysis has not been obtained. Chest x-ray was not performed prior to her departure from the department but has been ordered by the admitting physician. I do not find evidence of pneumonia on my physical exam. She is not encephalopathic. In the emergency department she received 1 L of normal saline and 10 units of IV insulin. Initial blood sugar was 565 and decreased to 440 after the above treatments. Initial sodium was 125 with an increase to 132, potassium initially 5.6 with a decreased to 4.5. She is noted to have elevated BUN and creatinine as would be expected given her known end-stage renal disease. She is acidotic. She is being admitted to the intensive care unit for frequent glucose monitoring , IV fluids, and insulin drip. Further investigation will be performed searching for a source of infection. She does not meet sepsis criteria, no source of infection identified at this point in time. Differential Diagnosis: I considered a differential diagnosis including but not limited to hyperglycemia , diabetic ketoacidosis, hypoglycemia, infectious process, electrolyte abnormality, head injury and intoxicants. - Data Points Laboratory Results: Laboratory Results 12/15/16 12:00 12/15/16 12:00 Medications Given: Amlodipine Besylate (Norvasc) 5 mg PO HS LANCE Stop: 06/13/17 20:59 Last Admin: 12/16/16 00:20 Dose: 5 mg Atorvastatin Calcium (Lipitor) 10 mg PO HS LANCE Stop: 06/13/17 20:59 Last Admin: 12/16/16 00:20 Dose: 10 mg Famotidine (Pepcid) 20 mg PO BID LANCE Stop: 06/13/17 14:29 Last Admin: 12/16/16 00:21 Dose: 20 mg Insulin Glargine (Lantus Syringe) 6 units SC BID LANCE Stop: 06/13/17 22:14 Last Admin: 12/15/16 22:23 Dose: 6 units Levetiracetam (Keppra) 500 mg PO HS LANCE Stop: 06/13/17 20:59 Last Admin: 12/16/16 00:21 Dose: 500 mg Metoprolol Tartrate (Lopressor) 100 mg PO BID LANCE Stop: 06/13/17 20:59 Last Admin: 12/16/16 08:22 Dose: 100 mg Ondansetron HCl (Zofran) 4 mg IVP Q4HRS PRN PRN Reason: Nausea/Vomiting, Can't Take PO Stop: 06/14/17 05:47 Last Admin: 12/16/16 05:56 Dose: 4 mg Pregabalin (Lyrica) 50 mg PO HS LANCE Stop: 06/13/17 20:59 Last Admin: 12/16/16 00:21 Dose: 50 mg Discontinued Medications Sodium Chloride (Ns) 1,000 mls @ 0 mls/hr IV ONCE ONE PRN Reason: Wide Open Stop: 12/15/16 12:07 Last Admin: 12/15/16 12:24 Dose: 1,000 mls Sodium Chloride (Ns) 1,000 mls @ 0 mls/hr IV ONCE ONE; Wide Open PRN Reason: Protocol Stop: 12/15/16 12:54 Last Admin: 12/15/16 14:07 Dose: Not Given Insulin Human Regular 100 unit / Miscellaneous Medication 1 ea/ Sodium Chloride 101 mls @ 6 mls/hr IV EDNOW ONE PRN Reason: Protocol Stop: 12/16/16 05:42 Last Admin: 12/15/16 15:12 Dose: Not Given Sodium Chloride (Ns) 1,000 mls @ 150 mls/hr IV CONT LANCE Stop: 06/13/17 14:29 Last Admin: 12/15/16 15:13 Dose: 1,000 mls Insulin Human Regular (Humulin R) 10 unit IVP EDNOW ONE Stop: 12/15/16 12:54 Last Admin: 12/15/16 13:10 Dose: 10 i.unit Departure - Departure [facility] Acute Clinical Impression: Diabetic ketoacidosis Qualifiers: Diabetes mellitus type: type 1 Diabetes mellitus complication detail: without coma Qualified Code(s): E10.10 - Type 1 diabetes mellitus with ketoacidosis without coma Condition: Fair Physician Review and Approval Statement: 12/15/16 12:39 Portions of this note were transcribed by the medical secretary. I, Dr. Edita Agarwal, personally performed the history, physical exam, and medical decision- making; and confirmed the accuracy of the information in the transcribed note.
[2016-12-15 12:51] LABS: GLUCOSE 565 mg/dL (70-100)
[2016-12-15] MEDS ORDERED: INSULIN REGULAR HUMAN 100 UNIT/ML IVP ONE (12:53)
[2016-12-15] MEDS ORDERED: INSULIN REGULAR HUMAN 100 UNIT, COSIGN. REQUIRED 1 EA in NS 100 ML IV ONE (12:53)
[2016-12-15 13:18] LABS: MAGNESIUM 2.2 mg/dL (1.6-2.3)
[2016-12-15 13:59] LABS: B-HYDROXYBUTYRATE 0.51 mmol/L (0.02-0.27)
[2016-12-15] MEDS ORDERED: ACETAMINOPHEN 325 MG TAB PO PRN (14:29)
[2016-12-15] MEDS ORDERED: ACETAMINOPHEN 650 MG SUPP PR PRN (14:29)
[2016-12-15] MEDS ORDERED: LORazepam 2 MG/ML INJ IVP PRN (14:29)
[2016-12-15] MEDS ORDERED: LORazepam 0.5 MG TAB PO PRN (14:29)
[2016-12-15] MEDS ORDERED: NS 1,000 ML IV SCH (14:30)
[2016-12-15] MEDS ORDERED: POLYETHYLENE GLYCOL 3350 17 GM PKT PO PRN (14:38)
[2016-12-15] MEDS ORDERED: HYDROCODONE/APAP 5/325 TAB PO PRN (14:38)
[2016-12-15] MEDS ORDERED: IPRATROPIUM/ALBUTEROL 3 ML DEYVIAL IH PRN (14:38)
[2016-12-15] MEDS ORDERED: D5W 1,000 ML IV SCH (14:45)
[2016-12-15] MEDS ORDERED: INSULIN REGULAR HUMAN 100 UNIT in NS 100 ML IV SCH ×2 (15:00→15:43)
--- NOTE | 2016-12-15 15:30 | GHP ---
[f rep st] HISTORY AND PHYSICAL DATE OF ADMISSION: 12/15/2016 CHIEF COMPLAINT: Nausea, vomiting, and hyperglycemia. HISTORY OF PRESENT ILLNESS: This is a 56-year-old female with a known history of diabetes mellitus type 1, who presents with hyperglycemia, weakness, and acidosis. The patient is on hemodialysis thr ough a left arm shunt on Sunday, Sunday, Sunday. Her dialysis on Sunday was cut short because she was having nausea, some episodes of vomiting and diarrhea. The evening before admission, she w as noted to be hypoglycemic at [facility]. Her evening insulin was held and this morning she was noted to be hyperglycemic, was given a small dose of insulin, the hyperglycemia persisted, and she was brought to the emergency department where she was noted to have a glucose of 565 with a metaboli c acidosis, positive ion gap and hyperkalemia with a sodium of 5.6. She was treated with IV fluid a nd regular insulin 10 units IV. Her glucose has decreased to 440, the potassium fell to 4.5 and the sodium evan to 132. Her BUN and creatinine are elevated, consistent with end-stage renal disease. The patient reports that she has not felt well and has had some vomiting and diarrhea for the last several days. She also reports she has had vomiting for the last 6 months and denies that her vomit ing is worse in the last 2-3 days than it has been chronically. Thus, the patient probably has marina roparesis and intermittently vomits but she admits it has not been worse in the last 3 days than it is normally. She also reports she is having persistent diarrhea, and she says she has had a diagnos is of Clostridium difficile. This finding is not on her chart and will need to be further evaluated . She has had a very slight cough which is nonproductive but denies having a sore throat, fever, ch ills, sweats, rash or chest pain. She does make some urine but denies dysuria, frequency, or prior renal infections. There is a history of rheumatoid arthritis which she cannot characterize well, ye t she denies acute joint tenderness, inflammation or pain. PAST MEDICAL HISTORY: 1. Rheumatoid arthritis which has not been characterized further and the patient cannot give specif ic details. 2. She has a history of bilateral Charcot foot with a history of ulcers. She is status post a righ t transmetatarsal amputation 2 years ago. 3. Diabetes mellitus type 1 since the age of 18. 4. Hypertension. 5. Chronic pain. 6. Depression. 7. Seizure disorder listed in the EMR although the patient cannot give any specific details of it a nd she does not know or is aware that she has a seizure disorder. 8. There is a history of C difficile noted in 07/2016. PAST SURGICAL HISTORY: A right foot transmetatarsal amputation done 2 years APPLICATION SYSTEMS ARCHITECT, tubal ligation, a dialysis left arm shunt was placed approximately 6 months ago. She had a left subclavian dialysis c atheter removed on 12/14/2016 at [facility]. She has remotely had a right subclavian dialysi s catheter which was removed 1 year ago when she said she had a heart infection and was hospitalized at [facility]. ALLERGIES: To meperidine, sulfa, and trimethoprim. REVIEW OF SYSTEMS: Except as noted above, a 10-point review of systems is entirely negative. FAMILY HISTORY: Not pertinent. The patient cannot give details about her family history that are r elevant but denies a family history of diabetes. SOCIAL HISTORY: She is apparently and has 2 step children. She has been living at [facility] for the last 9 months she reports because she cannot walk. She reports she is able to walk bu t it is with significant difficulty. Tobacco: She remotely used tobacco but stopped it many years ago. Alcohol: None. Drugs: None. PHYSICAL EXAMINATION: GENERAL: This is a pleasant female, who is alert and cooperative but appears chronically ill. VITAL SIGNS: Very borderline hypertension at 136/70, heart rate 83, respirations 17, mild hypoxemia with an SaO2 of 89 on room air which easily was noted also to be 93. HEENT: ows that she is edentulous and does not have her dentures with her. Tympanic membranes are myers darryl aterally. NECK: Supple, without meningismus. There is no adenopathy in the anterior-posterior cer vical chain. Thyroid is not enlarged nor is it tender. CHEST WALL: Nontender to palpation. The l eft anterior chest shows a bandage where the left subclavian dialysis catheter was removed yesterday . The wound is healing well, is nonerythematous and there is no purulent drainage. LUNGS: Clear t o P and A, without wheezing or rales. HEART: Singular S1, physiologically split S2. An ASH along the LSB is noted at a grade 2/6, without evidence of AI. No gallop rhythms appreciated and JVD is n ot elevated. ABDOMEN: Normoactive bowel sounds. No masses, tenderness, organomegaly. EXTREMITIES : Show on the right arm there are numerous areas of vena puncture sites and some ecchymosis. Right foot shows a remote transmetatarsal amputation which is healing well. There is a bunion deformity of the left foot. Joints show no erythema, redness, tenderness or swelling. NEUROLOGIC: An orient ed x3, pleasant female. Cranial nerves 2-12 intact to specific testing. Babinski's downgoing. Sen rah function grossly intact. LABORATORY: CBC shows a normal white count, with a low hemoglobin at 9.9. Chemistry panel initiall y showed hyponatremia with a sodium 125, elevated potassium of 5.6, an anion gap and a creatinine of 6.6 with a glucose of 565. She was given insulin and her glucose fell to 440 and with fluids her s odium evan to 132 and her potassium fell to 4.5. Her beta hydroxybutyrate was elevated at 0.51. To xicology for ketones was canceled. A chest x-ray has been ordered and will be reviewed by this physician when available. ASSESSMENT: 1. Acute diabetic ketoacidosis in this type 1 diabetic who for unclear reasons did not receive her evening dose of insulin yesterday. She has a moderate metabolic acidosis which is improving with in sulin and fluids in the emergency department. Her hyperglycemia has now resolved. Will continue IV fluids and place her on an IV insulin drip and admit her to the ICU for further management. Her el ectrolytes will be checked on a q.4 hour basis, glucose q.2 hours or q.1 hour while on the insulin d rip. 2. Diarrhea with a history of Clostridium difficile. A stool will be obtained for GI pathogens inc luding Clostridium difficile, and she should be placed in isolation until it is clarified. 3. End-stage renal disease, on dialysis Sunday, Sunday, Sunday with a left arm shunt which has b een functional for the last 6 months. Though she had incomplete dialysis on Sunday and did not d ialyze today, she currently is not in need of dialysis as her potassium is normal, her fluid status is not excessive, she does not show signs of congestive heart failure. It remains in question why s he has had a sudden hyperglycemia and a chest x-ray in search for signs of infection will be done. PLAN: The patient will be admitted to the ICU, given an insulin drip and fluids. Chest x-ray obtai leida in pursuit of a possible infection and GI pathogens will be sought and especially C difficile. She will be placed in isolation until that matter is resolved. Code status is full, and her power of privacy attorney is unknown. DVT prophylaxis will be with Lovenox. BILLING: The patient will be placed on inpatient status as it will require greater than 2 midnights to resolve her metabolic disorders. /[id number]/MODL
[2016-12-15] MEDS ORDERED: INSULIN REGULAR HUMAN 100 UNIT/ML IVP PRN (15:43)
[2016-12-15 15:49] LABS: INR 1.01 (0.83-1.16); PROTIME(PATIENT) 13.2 SEC (12.0-15.0)
[2016-12-15 15:58] LABS: POTASSIUM 4.9 mEq/L (3.5-5.2)
--- NOTE | 2016-12-15 15:59 | CPEKG ---
Heart Rate: 66 RR Interval: 909 P-R Interval: 136 QRSD Interval: 88 QT Interval: 452 QTC Interval: 474 P [place]: 45 QRS [place]: 69 T Wave [place]: 72 EKG Severity - NORMAL ECG - EKG Impression: SINUS RHYTHM Electronically Signed By: David Young 16-Dec-2016 17:21:26
[2016-12-15 16:36] LABS: ANION GAP 18 mEq/L (8-16); CALCIUM 8.9 mg/dL (8.5-10.4); CARBON DIOXIDE 15 mEq/l (22-31); CHLORIDE 97 mEq/L (97-110); CREATININE 6.3 mg/dL (0.6-1.0); GLOMERULAR FILTRATION RATE 7; GLUCOSE 281 mg/dL (70-100); POTASSIUM 4.9 mEq/L (3.5-5.2); SODIUM 130 mEq/L (134-144)
[2016-12-15 16:49] LABS: HEMOGLOBIN A1C 9.7 % (4.0-6.0)
--- NOTE | 2016-12-15 16:50 | SOAPPROG ---
SOAP Progress Note Assessment/Plan: Assessment: 1)ESRD- [facility] -plan HD today (3K bath, 1kg UF) 2)DM1 with DKA -Blood sugar improving- would d/c IVF given risk volume overload (I have discussed with RN and have call into hospitalist) -denies any precipitating factors or signs of infection other than diarrhea- this is recurrent issue for her 3)history of C diff -rechecking toxin and defer antibiotics if needed per hospitalist 4)Anemia of CKD -Hb at goal, will verify outpt Epo dosing from her HD unit 5)MBD of CKD -willl check phos am labs -renal diet when taking po 6)mild hyperK -cellular shift due to DKA, will correct as glucose corrects -3K bath with HD I discussed with ICU Team 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 She has been off C diff meds recently but notes persistent diarrhea. Denies fevers, abd pain, blood in stools, vomiting, cough. Last HD was Wed- using AVF without difficulty per her report. Tells me not much UF recently given diarrhea. Admitted to ICU for DKA and last blood sugar 208. Still on D5NS @ 150 cc/hr (RN reports given 1L fluids in ER prior to transfer to ICU). Objective: Vital Signs Temp Pulse Resp BP Pulse Ox 36.8 C 70 16 138/68 H 93 12/15/16 12:01 12/15/16 14:06 12/15/16 14:06 12/15/16 14:06 12/15/16 14:06 Laboratory Results 12/15/16 15:29 12/14/16 12/15/16 12/16/16 05:59 05:59 05:59 Intake Total 1000 Balance 1000 PT 13.2 SEC (12.0-15.0) 12/15/16 15:29 INR 1.01 (0.83-1.16) 12/15/16 15:29 Physical Exam - Physical Exam General Appearance: no apparent distress EENT: other (mmm) Neck: supple Respiratory: other (crackles R base, otherwise clear) Cardiac/Chest: regular rate, rhythm, other (no rub) Abdomen: normal bowel sounds, non-tender, soft Skin: warm/dry Extremities: other (LUE AVF +thrill/bruit) Neuro/Psych: alert, oriented x 3 ICD10 Worksheet Patient Problems: Problems Problem Status Onset C. difficile diarrhea Acute ~07/29/16 Diabetic ketoacidosis Acute ESRD (end stage renal disease) Acute
[2016-12-15 18:19] LABS: COLOR PALE YELLOW; LEUKOCYTE ESTERASE,URINE NEGATIVE (NEGATIVE); NITRITE,URINE NEGATIVE (NEGATIVE)
[2016-12-15] MEDS: FAMOTIDINE 20 MG TAB PO SCH (18:39)
[2016-12-15] MEDS ORDERED: NON-FORMULARY NEW DRUG (Simvastatin [Zocor] 20 MG) PO SCH (21:00)
[2016-12-15] MEDS ORDERED: D50W 25 GM/50 ML SYR IVP PRN (22:03)
[2016-12-15] MEDS: INSULIN GLARGINE 100 UNITS/ML SYRINGE SC SCH (22:23)
[2016-12-15] MEDS ORDERED: LIDOCAINE 1% *Not for Epidural 20 ML MDV ONE (23:55)
[2016-12-16] MEDS: ATORVASTATIN CALCIUM 10 MG TAB PO SCH ×2 (00:20→21:21)
[2016-12-16] MEDS: amLODIPine BESYLATE 5 MG TAB PO SCH ×2 (00:20→21:21)
[2016-12-16] MEDS: METOPROLOL TARTRATE 100 MG TAB PO SCH ×3 (00:21→21:21)
[2016-12-16] MEDS: levETIRAcetam 500 MG TAB PO SCH ×2 (00:21→21:21)
[2016-12-16] MEDS: FAMOTIDINE 20 MG TAB PO SCH ×3 (00:21→21:21)
[2016-12-16] MEDS: PREGABALIN 50 MG CAP PO SCH ×2 (00:21→21:21)
[2016-12-16 05:42] LABS: % IMMATURE GRANULYOCYTES 0.2 % (0.0-1.1); ABSOLUTE IMMATURE GRANULOCYTES 0.01 10^3/uL (0.00-0.10); ADD DIFF? NO; ADD MORPH? NO; ADD SCAN? NO; ATYPICAL LYMPHOCYTE FLAG 10 (0-99); FRAGMENT RBC FLAG 0 (0-99); HEMATOCRIT 30.5 % (38.0-47.0); HEMOGLOBIN 10.4 g/dL (12.6-16.3); LEFT SHIFT FLG 0 (0-99); LIPEMIA HEMOLYSIS FLAG 90 (0-99); MEAN CELL HEMOGLOBIN 30.9 pg (27.9-34.1); MEAN CELL HEMOGLOBIN CONCENTR. 34.1 g/dL (32.4-36.7); MEAN CELL VOLUME 90.5 fL (81.5-99.8); MEAN PLATELET VOLUME 9.8 fL (8.7-11.7); PLATELET CLUMPS FLAG 0 (0-99); PLATELET COUNT 241 10^3/uL (150-400); RED BLOOD CELL COUNT 3.37 10^6/uL (4.18-5.33); RED CELL DISTRIBUTION WIDTH 12.9 % (11.5-15.2)
[2016-12-16 05:49] LABS: ALANINE AMINOTRANSFERASE 30 IU/L (9-52); ALBUMIN 3.8 g/dL (3.5-5.0); ALKALINE PHOSPHATASE 107 IU/L (38-126); ANION GAP 13 mEq/L (8-16); ASPARTATE AMINOTRANSFERASE 23 IU/L (14-46); BILIRUBIN,TOTAL 0.5 mg/dL (0.1-1.4); CALCIUM 9.4 mg/dL (8.5-10.4); CARBON DIOXIDE 25 mEq/l (22-31); CHLORIDE 95 mEq/L (97-110); GLOMERULAR FILTRATION RATE 16; GLUCOSE 134 mg/dL (70-100); SODIUM 133 mEq/L (134-144); TOTAL PROTEIN 6.5 g/dL (6.3-8.2)
[2016-12-16] MEDS: ONDANSETRON 4 MG/2 ML VIAL IVP PRN ×2 (05:56→09:52)
[2016-12-16] MEDS ORDERED: NON-FORMULARY NEW DRUG (Losartan Potassium [Cozaar] 100 MG) PO SCH (09:00)
[2016-12-16] MEDS ORDERED: ENOXAPARIN 40 MG/0.4 ML SYR SC SCH (09:00)
[2016-12-16 09:42] LABS: CLOSTRIDIUM DIFFICILE DNA POSITIVE (NEGATIVE)
[2016-12-16 09:44] LABS: PRINT OR CALL CRITICALS TECH CALL
[2016-12-16] MEDS: ASPIRIN EC 81 MG TAB PO SCH (09:51)
[2016-12-16] MEDS: ESCITALOPRAM OXALATE 10 MG TAB PO SCH (09:51)
[2016-12-16] MEDS: LOSARTAN POTASSIUM 50 MG TAB PO SCH (09:52)
[2016-12-16] MEDS: INSULIN GLARGINE 100 UNITS/ML SYRINGE SC SCH ×2 (09:52→21:22)
[2016-12-16] MEDS ORDERED: ONDANSETRON DISINTEGRATING 4 MG TAB PO PRN (10:12)
[2016-12-16] MEDS ORDERED: D50W 25 GM/50 ML SYR IVP PRN (13:16)
--- NOTE | 2016-12-16 13:55 | ASMTCASEMG ---
Living Arrangements What is your living Answers: With Other (Not Family) arrangement? Who do you live with? Type Of Residence What kind of residence do Answers: [facility] you live [facility]? Type of Residence Facility Name Notes: [facility] Discharge Plan Comments Coordination Status Comments Notes: Pt admitted from [facility] w DKA. Various notes state pt is from [facility] but this CM confirmed w Barbara Arteaga pt is from . PT rec SNF, OT eval pending. Pt likely d/c back to [facility] when medically stable. Date Signed: 12/16/2016 01:54 PM Electronically Signed By:Laquita Shah
--- NOTE | 2016-12-16 14:50 | SOAPPROG ---
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 Taking po now, on sq insulin. Reports 2 episodes diarrhea today. no n/v or abd pain. Objective: Vital Signs Temp Pulse Resp BP Pulse Ox 37.1 C 76 18 160/76 H 94 12/16/16 13:13 12/16/16 13:13 12/16/16 13:13 12/16/16 13:13 12/16/16 13:13 Laboratory Results 12/16/16 05:20 12/16/16 05:20 12/15/16 12/16/16 12/17/16 05:59 05:59 05:59 Intake Total 1390 Output Total 1200 Balance 190 PT 13.2 SEC (12.0-15.0) 12/15/16 15:29 INR 1.01 (0.83-1.16) 12/15/16 15:29 Physical Exam - Physical Exam General Appearance: no apparent distress EENT: other (mmm) Neck: supple Respiratory: lungs clear Cardiac/Chest: regular rate, rhythm Abdomen: normal bowel sounds, non-tender, soft Skin: warm/dry Extremities: other (no edema, LUE AVF +thrill/bruit) Neuro/Psych: alert, oriented x 3 ICD10 Worksheet Patient Problems: Problems Problem Status Onset Diabetic ketoacidosis Acute C. difficile diarrhea Acute ~07/29/16 ESRD (end stage renal disease) Acute
--- NOTE | 2016-12-16 16:09 | HOSPPROG ---
Hospitalist Progress Note Assessment/Plan: Assessment: 56-year-old female presents with acute DKA in the setting of end- stage renal disease, recurrent C diff colitis Plan: 1. DKA. Acute, evidenced by glucose of 560, positive beta hydroxybutyrate, anion gap of 18, serum bicarbonate level of 16, requiring DKA protocol modified due to her end-stage renal disease with low volume replacement. -this has resolved, serum bicarbonate level 25, avoid further volume given that she is able to tolerate solids and liquids and is at risk for volume overload -continue to monitor serum chemistry level -placed on insulin sliding scale as well as her long-acting insulin (lantus 6 bid) -most likely provoked by C difficile colitis 2. Recurrent C difficile colitis. Evidenced by diarrhea, positive C diff PCR, history of C diff. -initiated on oral vancomycin, will require 14 days of treatment -discussed with patient, she reports that she is scheduled for fecal transplant on 12/28/2016, would recommend postponing transplant until the patient has received a total of 14 days of vancomycin treatment and then pursuing transplant thereafter -counseled patient that transplant can be very effective method of treating recurrent C diff 3. End-stage renal disease. Patient normally has dialysis on Sunday, she was dialyzed last night for hyperkalemia -appreciate consultation today by Dr. Kris Rangel, she does not recommend further dialysis today -chest x-ray does not demonstrate overt fluid overload -patient can likely resume hemodialysis on Sunday, currently does not have volume overload 4. Hypertension. Chronic, continue home medications, restart hydralazine now 5. Hyponatremia. Acute, secondary to fluid shifts in the setting of end-stage renal disease, continue to monitor -improved with hemodialysis 6. Anemia of chronic kidney disease. Hemoglobin 10.4, currently does not require transfusion, continue to monitor 7. Chronic pain with continuous opiate dependency. Continue on home [place], Lyrica 8. Acute hyperkalemia. Improved with hemodialysis, EKG does not demonstrate peaked T-waves, personally interpreted Diet. Renal Prophylaxis. High risk patient, heparin subcu Code. Full Disposition. Anticipated discharge uncertain, remains clinically on resolved at this time. High-level of medical complexity, high risk of worsening morbidity and/or mortality, secondary to the issues outlined above. Subjective: patient reports she is feeling tired Objective: Vital Signs Temp Pulse Resp BP Pulse Ox 37.1 C 76 18 160/76 H 94 12/16/16 13:13 12/16/16 13:13 12/16/16 13:13 12/16/16 13:13 12/16/16 13:13 Laboratory Results 12/16/16 05:20 12/16/16 05:20 12/15/16 12/16/16 12/17/16 05:59 05:59 05:59 Intake Total 1390 Output Total 1200 Balance 190 PT 13.2 SEC (12.0-15.0) 12/15/16 15:29 INR 1.01 (0.83-1.16) 12/15/16 15:29 - Physical Exam Constitutional: no apparent distress, not in pain, chronically ill appearing, No uncomfortable Cardiovascular: systolic murmur ( 2/6 at all valve locations), No irregularly irregular, No tachycardia, No edema Respiratory: no respiratory distress, no rales or rhonchi, clear to auscultation Gastrointestinal: normoactive bowel sounds, soft, non-tender abdomen, no palpable masses, No distension Skin: other ( no erythema, no induration, no fluctuance, no tenderness at her left AV fistula site) Neurologic: AAOx3, sensation intact bilaterally, No facial droop Psychiatric: interacting appropriately, not anxious, not encephalopathic, thought process linear ICD10 Worksheet Patient Problems: Problems Problem Status Onset Diabetic ketoacidosis Acute C. difficile diarrhea Acute ~07/29/16 ESRD (end stage renal disease) Acute
[2016-12-16] MEDS: VANCOMYCIN 125 MG/2.5 ML UDL PO SCH ×2 (16:12→21:21)
[2016-12-16] MEDS: INSULIN REGULAR HUMAN 100 UNIT/ML SC SCH ×3 (16:39→21:22)
[2016-12-16 16:51] LABS: GLUCOSE 417 mg/dL (70-100)
[2016-12-16] MEDS: hydrALAZINE 10 MG TAB PO SCH (21:21)
[2016-12-17] MEDS ORDERED: D10W 250 ML PRN HYPOGLYCEMIA IV (01:00)
[2016-12-17 04:44] LABS: % IMMATURE GRANULYOCYTES 0.2 % (0.0-1.1); ABSOLUTE IMMATURE GRANULOCYTES 0.01 10^3/uL (0.00-0.10); ADD DIFF? NO; ADD MORPH? NO; ADD SCAN? NO; ATYPICAL LYMPHOCYTE FLAG 10 (0-99); FRAGMENT RBC FLAG 0 (0-99); HEMATOCRIT 27.3 % (38.0-47.0); LEFT SHIFT FLG 0 (0-99); LIPEMIA HEMOLYSIS FLAG 80 (0-99); MEAN CELL HEMOGLOBIN 30.8 pg (27.9-34.1); MEAN CELL VOLUME 93.5 fL (81.5-99.8); MEAN PLATELET VOLUME 9.8 fL (8.7-11.7); PLATELET CLUMPS FLAG 10 (0-99); PLATELET COUNT 195 10^3/uL (150-400); RED BLOOD CELL COUNT 2.92 10^6/uL (4.18-5.33); RED CELL DISTRIBUTION WIDTH 13.1 % (11.5-15.2)
[2016-12-17 05:02] LABS: ANION GAP 11 mEq/L (8-16); CALCIUM 9.1 mg/dL (8.5-10.4); CARBON DIOXIDE 24 mEq/l (22-31); CHLORIDE 97 mEq/L (97-110); GLOMERULAR FILTRATION RATE 9; GLUCOSE 117 mg/dL (70-100); POTASSIUM 5.1 mEq/L (3.5-5.2); SODIUM 132 mEq/L (134-144)
[2016-12-17] MEDS: VANCOMYCIN 125 MG/2.5 ML UDL PO SCH ×3 (06:10→13:36)
--- NOTE | 2016-12-17 07:50 | SOAPPROG ---
SOAP Progress Note Assessment/Plan: Assessment: 1)ESRD- [facility] M[facility] -had HD Sunday night, next run Sunday -AVF (TDC has been removed) 2)DM1 with DKA -this is recurrent issue for her -off insulin gtt and transitioned to lantus and sliding scale with close monitoring (tends to be quite labile during past admits)-glucoses better 3)history of C diff- toxin positive now and diarrhea -on po vanco, diarrhea improved -plans for fecal transplant at some point later this month 4)Anemia of CKD -Hb at goal, will continue Epo as outpt with HD (unit to dose) 5)MBD of CKD -renal diet when taking po -added back in Phoslo binder, take with meals I discussed with RN 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 Reports diarrhea improved, eating ok. No fevers. Discussed need to take the vanco regularly. Objective: Vital Signs Temp Pulse Resp BP Pulse Ox 36.8 C 70 20 123/69 H 90 L 12/16/16 23:30 12/16/16 23:30 12/16/16 23:30 12/16/16 23:30 12/16/16 23:30 Laboratory Results 12/17/16 04:28 12/17/16 04:28 12/16/16 12/17/16 12/18/16 05:59 05:59 05:59 Intake Total 1390 Output Total 1200 200 Balance 190 -200 PT 13.2 SEC (12.0-15.0) 12/15/16 15:29 INR 1.01 (0.83-1.16) 12/15/16 15:29 Physical Exam - Physical Exam General Appearance: no apparent distress, other (chronically ill) EENT: other (mmm) Respiratory: lungs clear Cardiac/Chest: regular rate, rhythm Abdomen: non-tender, soft Skin: warm/dry Extremities: other (trace LE edema, UE AVF +thrill/bruit) Neuro/Psych: alert, oriented x 3 ICD10 Worksheet Patient Problems: Problems Problem Status Onset Diabetic ketoacidosis Acute C. difficile diarrhea Acute ~07/29/16 ESRD (end stage renal disease) Acute
[2016-12-17 08:05] VITALS: BP 137/71; RESP 18; TEMP 98.9
[2016-12-17] MEDS: ESCITALOPRAM OXALATE 10 MG TAB PO SCH (08:11)
[2016-12-17] MEDS: ASPIRIN EC 81 MG TAB PO SCH (08:12)
[2016-12-17] MEDS: METOPROLOL TARTRATE 100 MG TAB PO SCH (08:12)
[2016-12-17] MEDS: CALCIUM ACETATE 667 MG CAP PO SCH ×2 (08:12→13:36)
[2016-12-17] MEDS: LOSARTAN POTASSIUM 50 MG TAB PO SCH (08:12)
[2016-12-17] MEDS: INSULIN GLARGINE 100 UNITS/ML SYRINGE SC SCH (08:13)
[2016-12-17] MEDS: hydrALAZINE 10 MG TAB PO SCH (08:13)
[2016-12-17] MEDS: FAMOTIDINE 20 MG TAB PO SCH (08:13)
[2016-12-17] MEDS: INSULIN REGULAR HUMAN 100 UNIT/ML SC SCH ×2 (08:47→12:50)
[2016-12-17] MEDS: HEPARIN 5,000 UNIT/0.5 ML SYR SC SCH ×2 (09:00→14:23)
[2016-12-17 11:53] VITALS: PULSE 67; O2SAT 92
--- NOTE | 2016-12-17 14:08 | PDIAF ---
- Diagnosis Diagnosis: DKA Code Status: Full Code - Medication Management Discharge Medications: Medications to Continue on Transfer Acetaminophen [Tylenol 325mg (*)] 650 mg PO Q8 PRN 09/20/16 [Last Taken Unknown] Amlodipine Besylate [Norvasc] 5 mg PO HS 09/20/16 [Last Taken Unknown] Aspirin EC [Aspirin EC 81 mg (*)] 81 mg PO DAILY 09/20/16 [Last Taken Unknown] Dextrose [Glutose 15] 1 kristina PO Q1H PRN 09/20/16 [Last Taken Unknown] Famotidine [Pepcid 20 MG (*)] 20 mg PO DAILY 09/20/16 [Last Taken Unknown] Ferrous Sulfate [Ferrous Sulf 325 MG (*)] 325 mg PO DAILY 09/20/16 [Last Taken Unknown] Herbals/Supplements -Info Only 1 ea PO DAILY 09/20/16 [Last Taken Unknown] Insulin Lispro [Humalog] 6 unit SQ DAILY@12 09/20/16 [Last Taken 09/20/16] Insulin Lispro [Humalog] 8 unit SQ DAILY 09/20/16 [Last Taken 09/20/16] Insulin Lispro [Humalog] 10 unit SQ DAILY@17 09/20/16 [Last Taken 09/19/16] Ipratropium/Albuterol [Duoneb (*)] 3 ml IH Q4H PRN 09/20/16 [Last Taken Unknown] Losartan Potassium [Cozaar] 100 mg PO DAILY MDD HOLD IF SBP<120 09/20/16 [Last Taken Unknown] Metoprolol Tartrate [Lopressor 100 mg (*)] 100 mg PO BID 09/20/16 [Last Taken Unknown] Ondansetron HCl [Zofran] 4 mg PO Q4H PRN 09/20/16 [Last Taken Unknown] Polyethylene Glycol 3350 [Miralax 17 gm (*)] 17 gm PO DAILY PRN 09/20/16 [Last Taken Unknown] Pregabalin [Lyrica 50mg (*)] 50 mg PO HS 09/20/16 [Last Taken Unknown] Simvastatin [Zocor] 20 mg PO HS 09/20/16 [Last Taken Unknown] hydrALAZINE [Apresoline 10 mg (*)] 35 mg PO TID 09/20/16 [Last Taken Unknown] levETIRAcetam [Keppra 500 mg (*)] 500 mg PO HS 09/20/16 [Last Taken Unknown] Acetaminophen [Tylenol ES 500 mg (*)] 1,000 mg PO [facility] 12/15/16 [Last Taken Unknown] Escitalopram Oxalate [Lexapro 10 MG] 10 mg PO DAILY 12/15/16 [Last Taken Unknown ] Glucagon,Human Recombinant [Glucagon Emergency Kit] 1 mg IM ONCE PRN 12/15/16 [ Last Taken Unknown] Hydrocodone/Acetaminophen [[place] 5/325 (*)] 1 - 2 tab PO Q4HRS PRN 12/15/16 [ Last Taken Unknown] Insulin Glargine,Hum.rec.anlog [Lantus Solostar] 6 unit SQ BID 12/15/16 [Last Taken Unknown] levETIRAcetam [Keppra 250 mg (*)] 250 mg PO [facility] 12/15/16 [Last Taken Unknown] Vancomycin [Vancocin Oral Liquid] 125 mg PO QID #50 udl 12/17/16 [Last Taken Unknown] Bite Block Maker Antibiotic Stop Date: 12/29/16 Discharge Medications: Refer to the Discharge Home Medication list for PRN reason. - Orders Diet Recommendation: ADA 1800 consistent carb, other (renal) Additional: Recommend outpatient referral with [facility] for diabetes management [phone] - Follow Up Care Current Providers and Referrals: NONE *PRIMARY CARE P,. [Primary Care Provider] - As per Instructions
--- NOTE | 2016-12-17 14:38 | ASDISCHSUM ---
Discharge Information Plan Status:SNF Medically Cleared to Leave:12/17/2016 Discharge Date:12/17/2016 CM D/C Disposition:Long Term Facility ADT D/C Disposition:Home, Routine, Self-Care Projected Discharge Date:12/17/2016 03:00 AM Transportation at D/C:Family Discharge Delay Reason: Follow-Up Date:12/17/2016 03:00 AM Discharge Slot: Final Diagnosis:Diabetic Ketoacidosis Placement Information Referral Type:*Snf/SNF Referral ID:[id number] Provider Name:[facility] Address 1:[address] Address 2: City:[place] Selection Factors: State:[place] Patient Contact Information Contact Name:ALEXYS Relationship: Address:[address] Work Phone: [facility]:[place] Alternate Phone: [facility]/Zip Code:[place] [address] Email: Financial Information Financial Class: Primary Plan Desc:MEDICARE INPATIENT Primary Plan Number:[id number] Secondary Plan Desc:MEDICA[place] Secondary Plan Number:[id number] Assessment Information [facility] Initial CM Assessment Living Arrangements What is your living Answers: With Other (Not Family) arrangement? Who do you live with? Type Of Residence What kind of residence do Answers: Long Term Facility you live in? Type of Residence Facility Name Notes: [facility] Discharge Plan Comments Coordination Status Comments Notes: Pt admitted from [facility] w DKA. Various notes state pt is from [facility] but this CM confirmed grayson Arteaga pt is from . PT rec SNF, OT eval pending. Pt likely d/c back to [facility] when medically stable. Date Signed: 12/16/2016 01:54 PM Electronically Signed By:Laquita Shah Intervention Information
--- NOTE | 2016-12-17 18:15 | GDS ---
[f rep st] DISCHARGE SUMMARY DISCHARGE DIAGNOSES: 1. Diabetic ketoacidosis. 2. Recurrent Clostridium difficile colitis. 3. Diabetes type 1. 4. End-stage renal disease, on dialysis. 5. Chronic pain with continuous opiate dependency. 6. Acute hyperkalemia. HISTORY: The patient is a 56-year-old female with very brittle diabetes, who presented with DKA. D KA resolved with the usual DKA protocol as well as dialysis. We suspect her DKA was provoked due to recurrent C difficile colitis. The patient has a history of recurrent C difficile colitis and is pending fecal transplant on . She had recurrence of diarrhea and was again C difficile positive in her stool. She was resumed on oral vancomycin with planned 14-day treatment. She should follow up with Gastroenterolog y and potentially may need to have her fecal transplant delayed due to this recurrence of acute infe ction. She was dialyzed throughout this hospitalization, including an episode of acute dialysis for her hyp erkalemia. She has now been cleared by Nephrology to resume her usual Sunday, Sunday, Sunday [facility]. Her hemoglobin A1c is 9.7, and she has a history of very [id number] brittle diabetes. 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 Perhaps outpatient consultation could be considered to see whether or not better control can be achieved. She is a long-term care resident at [facility]. DISCHARGE MEDICATIONS: Please see computer record for full detailed list. New medications: Vancomycin 125 mg p.o. 4 times a day. DISCHARGE INSTRUCTIONS: 1. Follow up with Gastroenterology to discuss fecal transplant and whether or not should proceed wi current date. 2. Outpatient referral to [facility] for better diabetes management. 3. Return to [facility]. Greater than 30 minutes' time was spent arranging this discharge. Patient seen and examined by me nicolette gomez the day of discharge. /[id number]/MODL
[2016-12-18] MEDS ORDERED: levETIRAcetam 250 MG TAB PO SCH (08:00)
== END 2016-12-17 15:00 | DRG 637 ==
LOC: EDUNIT# → UNDOADMIN 13:08 → F2N 14:25 → F3E 12-16 12:58
PROVIDERS: ADMIT Internal Medicine Pulmonary Disease; ATTEND Internal Medicine Pulmonary Disease
PROC: 5A1D00Z (ICD-10-PCS; principal; 2016-12-15)
DX: E10.10 Type 1 diabetes mellitus with ketoacidosis without coma (principal); I12.0 Hypertensive chronic kidney disease with stage 5 chronic kidney disease or end stage renal disease; N18.6 End stage renal disease; A04.7 Enterocolitis due to Clostridium difficile; F11.20 Opioid dependence, uncomplicated; E10.22 Type 1 diabetes mellitus with diabetic chronic kidney disease; G89.29 Other chronic pain; E87.5 Hyperkalemia; E78.5 Hyperlipidemia, unspecified; G40.909 Epilepsy, unspecified, not intractable, without status epilepticus; Z87.891 Personal history of nicotine dependence; Z79.4 Long term (current) use of insulin; Z99.2 Dependence on renal dialysis
CPT/HCPCS: 82947-QW; 96374; 97161-GP; 97166-GO; G8978-GP-CJ; G8979-GP-CI; G8987-GO-CJ; G8988-GO-CI; J1650; J1815; J2405

== ENCOUNTER 2016-12-31 11:42 | Emergency (ER) | payer OTHER, MEDICAID ==
[2016-12-31 11:59] VITALS: RESP 16
[2016-12-31 12:32] LABS: ANION GAP 20 mEq/L (8-16); CARBON DIOXIDE 22 mEq/l (22-31); CHLORIDE 86 mEq/L (97-110); CREATININE 6.8 mg/dL (0.6-1.0); GLOMERULAR FILTRATION RATE 6; GLUCOSE 119 mg/dL (70-100); POTASSIUM 4.1 mEq/L (3.5-5.2); SODIUM 128 mEq/L (134-144)
--- NOTE | 2016-12-31 12:55 | EDPHY ---
H & P Time Seen by Provider: 12/31/16 12:52 HPI/ROS: CHIEF COMPLAINT: Hyperglycemia Limitations: Poor historian HISTORY OF PRESENT ILLNESS: 56-year-old female with diabetes mellitus and end- stage renal disease presents with hyperglycemia. She lives at [facility] and this morning her blood sugar was over 600. She was given Lantus and regular insulin per protocol. In route to the emergency department, blood sugar was 134. She developed sore throat, runny nose and cough yesterday. Associated with nausea and vomiting x5 this morning and generalized weakness. No associated fever or shortness of breath. Ongoing loose stools, without recent change. REVIEW OF SYSTEMS: Constitutional: No fever, no chills Eyes: No visual changes ENT: No sore throat Respiratory: no shortness of breath Cardiac: No chest pain Gastrointestinal: no abdominal pain Genitourinary: No hematuria, no dysuria Musculoskeletal: No leg pain or swelling Skin: No rash Neurological: No headache Psychiatric: depression Past Medical/Surgical History: End-stage renal disease, on dialysis Type 1 diabetes mellitus Social History: Lives at [facility] Smoking Status: Former smoker Physical Exam: General Appearance: drowsy, pleasant Eyes: Pupils equal and round, no conjunctival pallor or injection ENT, Mouth: Mucous membranes moist Neck: Normal inspection Respiratory: Lungs are clear to auscultation Cardiovascular: Regular rate and rhythm Gastrointestinal: Abdomen is soft and nontender Neurological: A&O, nonfocal exam Skin: Warm and dry Extremities: rt midfoot amputation, NT Psychiatric: flat affect Constitutional: Initial Vital Signs Temperature (C) 37.5 C 12/31/16 11:56 Heart Rate 81 12/31/16 11:56 Respiratory Rate 16 12/31/16 11:56 Blood Pressure 146/65 H 12/31/16 11:56 O2 Sat (%) 96 12/31/16 11:56 O2 Delivery Mode Nasal Cannula O2 (L/minute) 2 Allergies/Adverse Reactions: meperidine HCl [From Demerol] Allergy (Intermediate, Verified 12/31/16 12:05) PARANOID, HALLUCINATIONS sulfamethoxazole [From Bactrim] Allergy (Verified 12/31/16 12:05) trimethoprim [From Bactrim] Allergy (Verified 12/31/16 12:05) Home Medications: Medication Instructions Recorded Acetaminophen [Tylenol 325mg (*)] 650 mg PO Q8 PRN 09/20/16 Amlodipine Besylate [Norvasc] 5 mg PO HS 09/20/16 Aspirin EC [Aspirin EC 81 mg (*)] 81 mg PO DAILY 09/20/16 Dextrose [Glutose 15] 1 kristina PO Q1H PRN 09/20/16 Famotidine [Pepcid 20 MG (*)] 20 mg PO DAILY 09/20/16 Ferrous Sulfate [Ferrous Sulf 325 325 mg PO DAILY 09/20/16 MG (*)] Herbals/Supplements -Info Only 1 ea PO DAILY 09/20/16 Insulin Lispro [Humalog] 6 unit SQ DAILY@12 09/20/16 Insulin Lispro [Humalog] 8 unit SQ DAILY 09/20/16 Insulin Lispro [Humalog] 10 unit SQ DAILY@09/20/16 Ipratropium/Albuterol [Duoneb (*)] 3 ml IH Q4H PRN 09/20/16 Losartan Potassium [Cozaar] 100 mg PO DAILY MDD HOLD IF SBP<120 09/20/16 Metoprolol Tartrate [Lopressor 100 100 mg PO BID 09/20/16 mg (*)] Ondansetron HCl [Zofran] 4 mg PO Q4H PRN 09/20/16 Polyethylene Glycol 3350 [Miralax 17 gm PO DAILY PRN 09/20/16 17 gm (*)] Pregabalin [Lyrica 50mg (*)] 50 mg PO HS 09/20/16 Simvastatin [Zocor] 20 mg PO HS 09/20/16 hydrALAZINE [Apresoline 10 mg (*)] 35 mg PO TID 09/20/16 levETIRAcetam [Keppra 500 mg (*)] 500 mg PO HS 09/20/16 Acetaminophen [Tylenol ES 500 mg 1,000 mg PO MWF 12/15/16 (*)] Escitalopram Oxalate [Lexapro 10 10 mg PO DAILY 12/15/16 MG] Glucagon,Human Recombinant 1 mg IM ONCE PRN 12/15/16 [Glucagon Emergency Kit] Hydrocodone/Acetaminophen [[place] 1 - 2 tab PO Q4HRS PRN 12/15/16 5/325 (*)] Insulin Glargine,Hum.rec.anlog 6 unit SQ BID 12/15/16 [Lantus Solostar] levETIRAcetam [Keppra 250 mg (*)] 250 mg PO MWF 12/15/16 Vancomycin [Vancocin Oral Liquid] 125 mg PO QID #50 udl 12/17/16 Medical Decision Making - Diagnostics Imaging Results: Imaging Impressions Chest X-Ray 12/31/16 13:07 Impression: No focal infiltrate. Pulmonary vascular prominence.. Imaging: Discussed imaging studies w/ call center agent Radiologist, I viewed and interpreted images myself ED Course/Re-evaluation: This patient presents with hyperglycemia, low-grade fever and URI symptoms. Repeat blood sugar is 119. She declines nausea medicine, as they do not work for her. Chest x-ray reveals no evidence of pneumonia. Laboratory analysis is relatively unremarkable, with slight leukocytosis stat and blood sugar 119. Multiple reassessments were performed on this patient. I do not feel that she requires admission at this point. I feel that she can be adequately managed at the [facility]. She concurs with this plan. There is no evidence of pneumonia, severe sepsis or DKA. I do not think that abx are indicated. BGL recheck and is currently is 64. The patient is eating crackers and drinking juice. Tolerating oral fluids and food well. Abdomen remained soft and nontender. Differential Diagnosis: Differential diagnosis includes does not limited to pneumonia, bronchitis, DKA, pulmonary edema, dehydration. - Data Points Laboratory Results: Laboratory Results 12/31/16 12:00 12/31/16 12:00 12/31/16 12/31/16 12/31/16 13:25 12:00 12:00 WBC 9.69 10^3/uL H 10^3/uL (3.80-9.50) RBC 3.25 10^6/uL L 10^6/uL (4.18-5.33) Hgb 10.1 g/dL L g/dL (12.6-16.3) Hct 29.4 % L % (38.0-47.0) MCV 90.5 fL fL (81.5-99.8) MCH 31.1 pg pg (27.9-34.1) MCHC 34.4 g/dL g/dL (32.4-36.7) RDW 12.3 % % (11.5-15.2) Plt Count 270 10^3/uL 10^3/uL (150-400) MPV 10.2 fL fL (8.7-11.7) Neut % (Auto) 59.8 % % (39.3-74.2) Lymph % (Auto) 21.8 % % (15.0-45.0) [place] % (Auto) 16.1 % H % (4.5-13.0) Eos % (Auto) 1.0 % % (0.6-7.6) Baso % (Auto) 1.0 % % (0.3-1.7) Nucleat RBC Rel Count 0.0 % % (0.0-0.2) Absolute Neuts (auto) 5.79 10^3/uL 10^3/uL (1.70-6.50) Absolute Lymphs (auto) 2.11 10^3/uL 10^3/uL (1.00-3.00) Absolute Monos (auto) 1.56 10^3/uL H 10^3/uL (0.30-0.80) Absolute Eos (auto) 0.10 10^3/uL 10^3/uL (0.03-0.40) Absolute Basos (auto) 0.10 10^3/uL 10^3/uL (0.02-0.10) Absolute Nucleated RBC 0.00 10^3/uL 10^3/uL (0-0.01) Immature Gran % 0.3 % % (0.0-1.1) Immature Gran # 0.03 10^3/uL 10^3/uL (0.00-0.10) Sodium 128 mEq/L L mEq/L (134-144) Potassium 4.1 mEq/L mEq/L (3.5-5.2) Chloride 86 mEq/L L mEq/L (97-110) Carbon Dioxide 22 mEq/l mEq/l (22-31) Anion Gap 20 mEq/L H mEq/L (8-16) BUN 57 mg/dL H mg/dL (7-23) Creatinine 6.8 mg/dL H mg/dL (0.6-1.0) Estimated GFR 6 Glucose 119 mg/dL H mg/dL (70-100) Calcium 10.0 mg/dL mg/dL (8.5-10.4) Influenza A & B (PCR) NEGATIVE FOR FLU (NEGATIVE) Departure - Departure Disposition: Home, Routine, Self-Care Clinical Impression: Hyperglycemia URI (upper respiratory infection) Qualifiers: URI type: unspecified URI Qualified Code(s): J06.9 - Acute upper respiratory infection, unspecified Condition: Fair Instructions: Upper Respiratory Infection (ED), Diabetic Hyperglycemia (ED) Additional Instructions: Check your blood sugar four times daily. Use insulin sliding scale as previously prescribed. Followup with your primary care physician on Sunday for recheck. Return to the emergency department with new or worsening symptoms. Referrals: Philip Mijares [Other] - As per Instructions
[2016-12-31 13:15] LABS: % IMMATURE GRANULYOCYTES 0.3 % (0.0-1.1); ABSOLUTE IMMATURE GRANULOCYTES 0.03 10^3/uL (0.00-0.10); ADD DIFF? NO; ADD MORPH? NO; ADD SCAN? NO; ATYPICAL LYMPHOCYTE FLAG 10 (0-99); FRAGMENT RBC FLAG 0 (0-99); HEMATOCRIT 29.4 % (38.0-47.0); HEMOGLOBIN 10.1 g/dL (12.6-16.3); LEFT SHIFT FLG 0 (0-99); LIPEMIA HEMOLYSIS FLAG 90 (0-99); MEAN CELL HEMOGLOBIN 31.1 pg (27.9-34.1); MEAN CELL HEMOGLOBIN CONCENTR. 34.4 g/dL (32.4-36.7); MEAN CELL VOLUME 90.5 fL (81.5-99.8); MEAN PLATELET VOLUME 10.2 fL (8.7-11.7); PLATELET CLUMPS FLAG 0 (0-99); PLATELET COUNT 270 10^3/uL (150-400); RED BLOOD CELL COUNT 3.25 10^6/uL (4.18-5.33); RED CELL DISTRIBUTION WIDTH 12.3 % (11.5-15.2)
[2016-12-31 15:59] VITALS: BP 125/58; PULSE 78; TEMP 98.4; O2SAT 99
--- NOTE | 2016-12-31 17:28 | ASMTCMCOM ---
CM Note CM Note Notes: Patient requiring wheelchair transport back to [facility]. Spoke with Dona at [facility] and she says she will set up WC transport through [facility]. RN to call and give RN report, number provided. Date Signed: 12/31/2016 05:28 PM Electronically Signed By:Yuliana Washington RN
== END 2016-12-31 16:52 | disposition home or self-care (01) ==
LOC: EDUNIT#
DX: E10.65 Type 1 diabetes mellitus with hyperglycemia (principal); J06.9 Acute upper respiratory infection, unspecified; N18.6 End stage renal disease; Z79.82 Long term (current) use of aspirin; Z87.891 Personal history of nicotine dependence; Z99.2 Dependence on renal dialysis

== ENCOUNTER 2017-02-27 13:53 | Inpatient (IN) | payer OTHER, MEDICAID ==
[2017-02-27] MEDS ORDERED: NS 1,000 ML IV ONE (14:15)
--- NOTE | 2017-02-27 14:47 | EDPHY ---
H & P Stated Complaint: hyperglycemia Time Seen by Provider: 02/27/17 14:11 HPI/ROS: CHIEF COMPLAINT: Vomiting, diabetic patient, hyperglycemia HISTORY OF PRESENT ILLNESS: Patient is a homeless female who presents to the ED with several days of vomiting. The patient reports a history of insulin- dependent diabetes. She is been having blood sugars in the 600 range over the past 2 days. The patient is unable to tell me how much insulin she use today. The patient denies using any additional medications. She does have a remote history of a Clostridium difficile colitis infection. She denies fever, acute abdominal pain or dysuria. The patient denies any drug alcohol use. The patient does have a history of end-stage renal disease. She is on dialysis and missed her appointment yesterday. REVIEW OF SYSTEMS: A comprehensive 10 point review of systems is otherwise negative aside from elements mentioned in the history of present illness. Source: Patient - Personal History Current Tetanus/Diphtheria Vaccine: Yes Current Tetanus Diphtheria and Acellular Pertussis (TDAP): Yes Tetanus Vaccine Date: last 10 years - Medical/Surgical History Hx Asthma: No Hx Chronic Respiratory Disease: No Hx Diabetes: Yes Hx Cardiac Disease: No Hx Renal Disease: Yes Hx Cirrhosis: No Hx Alcoholism: No Hx HIV/AIDS: No Hx Splenectomy or Spleen Trauma: No Other PMH: DM 2, anemia, ESRF, Cdiff - Social History Smoking Status: Former smoker - Physical Exam Exam: General Appearance: Slightly disheveled Eyes: Pupils equal and round no pallor or injection ENT, Mouth: Dry mucous membranes Respiratory: There are no retractions, lungs are clear to auscultation Cardiovascular: Regular rate and rhythm Gastrointestinal: Abdomen is soft and nontender, no masses, bowel sounds normal Neurological: A&O, normal motor function, normal sensory exam, normal cranial nerves Skin: Warm and dry, no rashes Musculoskeletal: Neck is supple nontender Extremities: symmetrical, full range of motion Constitutional: Initial Vital Signs Temperature (C) 36.5 C 02/27/17 14:01 Heart Rate 68 02/27/17 14:01 Respiratory Rate 18 02/27/17 14:01 Blood Pressure 120/79 02/27/17 14:01 O2 Sat (%) 92 02/27/17 14:01 O2 Delivery Mode Room Air Allergies/Adverse Reactions: meperidine HCl [From Demerol] Allergy (Intermediate, Verified 12/31/16 12:05) PARANOID, HALLUCINATIONS sulfamethoxazole [From Bactrim] Allergy (Verified 12/31/16 12:05) trimethoprim [From Bactrim] Allergy (Verified 12/31/16 12:05) Home Medications: Medication Instructions Recorded Acetaminophen [Tylenol 325mg (*)] 650 mg PO Q8 PRN 09/20/16 Amlodipine Besylate [Norvasc] 5 mg PO HS 09/20/16 Aspirin EC [Aspirin EC 81 mg (*)] 81 mg PO DAILY 09/20/16 Dextrose [Glutose 15] 1 kristina PO Q1H PRN 09/20/16 Famotidine [Pepcid 20 MG (*)] 20 mg PO DAILY 09/20/16 Ferrous Sulfate [Ferrous Sulf 325 325 mg PO DAILY 09/20/16 MG (*)] Herbals/Supplements -Info Only 1 ea PO DAILY 09/20/16 Insulin Lispro [Humalog] 6 unit SQ DAILY@12 09/20/16 Insulin Lispro [Humalog] 8 unit SQ DAILY 09/20/16 Insulin Lispro [Humalog] 10 unit SQ DAILY@17 09/20/16 Ipratropium/Albuterol [Duoneb (*)] 3 ml IH Q4H PRN 09/20/16 Losartan Potassium [Cozaar] 100 mg PO DAILY MDD HOLD IF SBP<120 09/20/16 Metoprolol Tartrate [Lopressor 100 100 mg PO BID 09/20/16 mg (*)] Ondansetron HCl [Zofran] 4 mg PO Q4H PRN 09/20/16 Polyethylene Glycol 3350 [Miralax 17 gm PO DAILY PRN 09/20/16 17 gm (*)] Pregabalin [Lyrica 50mg (*)] 50 mg PO HS 09/20/16 Simvastatin [Zocor] 20 mg PO HS 09/20/16 hydrALAZINE [Apresoline 10 mg (*)] 35 mg PO TID 09/20/16 levETIRAcetam [Keppra 500 mg (*)] 500 mg PO HS 09/20/16 Acetaminophen [Tylenol ES 500 mg 1,000 mg PO MWF 12/15/16 (*)] Escitalopram Oxalate [Lexapro 10 10 mg PO DAILY 12/15/16 MG] Glucagon,Human Recombinant 1 mg IM ONCE PRN 12/15/16 [Glucagon Emergency Kit] Hydrocodone/Acetaminophen [[place] 1 - 2 tab PO Q4HRS PRN 12/15/16 5/325 (*)] Insulin Glargine,Hum.rec.anlog 6 unit SQ BID 12/15/16 [Lantus Solostar] levETIRAcetam [Keppra 250 mg (*)] 250 mg PO MWF 12/15/16 Medical Decision Making ED Course/Re-evaluation: The patient presents to the ED with vomiting, reported abnormal blood sugars and dehydration. The patient missed her dialysis on Sunday. The patient is noted to have an elevated BUN of 100 and a creatinine 10. She has no hyperkalemia. The patient has no evidence of diabetic ketoacidosis. Patient does appear to be quite dehydrated. She had an IV established. She received 500 mL of normal saline. The patient will require admission to the hospital for further management of her symptoms and the end-stage renal disease. Consultation is made with the hospitalist at 4:00 p.m.. Consultation has been made with nephrology of 4:00 p.m.. Differential Diagnosis: Differential diagnosis considered includes diabetic ketoacidosis, dehydration, metabolic abnormality, hyperkalemia, fluid overload - Data Points Laboratory Results: Laboratory Results 02/27/17 14:47 02/27/17 14:47 02/27/17 02/27/17 14:47 14:47 WBC 6.95 10^3/uL 10^3/uL (3.80-9.50) RBC 2.94 10^6/uL L 10^6/uL (4.18-5.33) Hgb 9.4 g/dL L g/dL (12.6-16.3) Hct 26.1 % L % (38.0-47.0) MCV 88.8 fL fL (81.5-99.8) MCH 32.0 pg pg (27.9-34.1) MCHC 36.0 g/dL g/dL (32.4-36.7) RDW 11.9 % % (11.5-15.2) Plt Count 228 10^3/uL 10^3/uL (150-400) MPV 10.0 fL fL (8.7-11.7) Neut % (Auto) 48.1 % % (39.3-74.2) Lymph % (Auto) 28.8 % % (15.0-45.0) [place] % (Auto) 18.6 % H % (4.5-13.0) Eos % (Auto) 3.3 % % (0.6-7.6) Baso % (Auto) 0.9 % % (0.3-1.7) Nucleat RBC Rel Count 0.0 % % (0.0-0.2) Absolute Neuts (auto) 3.35 10^3/uL 10^3/uL (1.70-6.50) Absolute Lymphs (auto) 2.00 10^3/uL 10^3/uL (1.00-3.00) Absolute Monos (auto) 1.29 10^3/uL H 10^3/uL (0.30-0.80) Absolute Eos (auto) 0.23 10^3/uL 10^3/uL (0.03-0.40) Absolute Basos (auto) 0.06 10^3/uL 10^3/uL (0.02-0.10) Absolute Nucleated RBC 0.00 10^3/uL 10^3/uL (0-0.01) Immature Gran % 0.3 % % (0.0-1.1) Immature Gran # 0.02 10^3/uL 10^3/uL (0.00-0.10) Sodium 130 mEq/L L mEq/L (134-144) Potassium 4.8 mEq/L mEq/L (3.5-5.2) Chloride 87 mEq/L L mEq/L (97-110) Carbon Dioxide 24 mEq/l mEq/l (22-31) Anion Gap 19 mEq/L H mEq/L (8-16) BUN 100 mg/dL H mg/dL (7-23) Creatinine 10.9 mg/dL H* mg/dL (0.6-1.0) Estimated GFR 4 Glucose 144 mg/dL H mg/dL (70-100) Calcium 9.5 mg/dL mg/dL (8.5-10.4) Total Bilirubin 0.3 mg/dL mg/dL (0.1-1.4) Conjugated Bilirubin 0.3 mg/dL mg/dL (0.0-0.5) Unconjugated Bilirubin 0.0 mg/dL mg/dL (0.0-1.1) AST 13 IU/L L IU/L (14-46) ALT 22 IU/L IU/L (9-52) Alkaline Phosphatase 136 IU/L H IU/L (38-126) Total Protein 6.9 g/dL g/dL (6.3-8.2) Albumin 4.2 g/dL g/dL (3.5-5.0) Lipase 101 IU/L IU/L (23-300) Medications Given: Discontinued Medications Sodium Chloride (Ns) 1,000 mls @ 0 mls/hr IV EDNOW ONE; Wide Open PRN Reason: Protocol Stop: 02/27/17 14:16 Last Admin: 02/27/17 14:54 Dose: 1,000 mls Departure - Departure Disposition: [place] Inpatient Acute Clinical Impression: ESRD (end stage renal disease), Dehydration Condition: Good
[2017-02-27 14:56] LABS: % IMMATURE GRANULYOCYTES 0.3 % (0.0-1.1); ABSOLUTE IMMATURE GRANULOCYTES 0.02 10^3/uL (0.00-0.10); ADD DIFF? NO; ADD MORPH? NO; ADD SCAN? NO; ATYPICAL LYMPHOCYTE FLAG 0 (0-99); FRAGMENT RBC FLAG 0 (0-99); HEMATOCRIT 26.1 % (38.0-47.0); HEMOGLOBIN 9.4 g/dL (12.6-16.3); LEFT SHIFT FLG 0 (0-99); LIPEMIA HEMOLYSIS FLAG 90 (0-99); MEAN CELL VOLUME 88.8 fL (81.5-99.8); PLATELET CLUMPS FLAG 0 (0-99); PLATELET COUNT 228 10^3/uL (150-400); RED BLOOD CELL COUNT 2.94 10^6/uL (4.18-5.33); RED CELL DISTRIBUTION WIDTH 11.9 % (11.5-15.2)
[2017-02-27 15:12] LABS: ALANINE AMINOTRANSFERASE 22 IU/L (9-52); ALBUMIN 4.2 g/dL (3.5-5.0); ALKALINE PHOSPHATASE 136 IU/L (38-126); ANION GAP 19 mEq/L (8-16); ASPARTATE AMINOTRANSFERASE 13 IU/L (14-46); BILIRUBIN,TOTAL 0.3 mg/dL (0.1-1.4); BILIRUBIN-CONJUGATED 0.3 mg/dL (0.0-0.5); CALCIUM 9.5 mg/dL (8.5-10.4); CARBON DIOXIDE 24 mEq/l (22-31); CHLORIDE 87 mEq/L (97-110); GLOMERULAR FILTRATION RATE 4; GLUCOSE 144 mg/dL (70-100); POTASSIUM 4.8 mEq/L (3.5-5.2); SODIUM 130 mEq/L (134-144); TOTAL PROTEIN 6.9 g/dL (6.3-8.2)
[2017-02-27 15:39] LABS: CREATININE 10.9 mg/dL (0.6-1.0)
--- NOTE | 2017-02-27 17:14 | ASMTCMCOM ---
CM Note CM Note Notes: Patient presented to ED from [facility] where she reside on LTC bed. Patient has ESRD, DM and missed her dialysis appt yesterday. Pt admitted for hyperglycemia, vomiting and management of ESRD. Anticipate pt will DC back to [facility] once medically stable, CM to follow. Date Signed: 02/27/2017 05:13 PM Electronically Signed By:Yuliana Washington RN
--- NOTE | 2017-02-27 17:38 | PDGENHP ---
History and Physical History and Physical: CC: Nausea vomiting, tired weakness HISTORY: This patient comes the ER with complaint of feeling ill for the last 2 days, very weak and tired. There is some morning nausea and vomiting but this is actually a very common in routine symptom for her. She has not had any abdominal pain diarrhea or bleeding from the gut. She missed her dialysis session yesterday because she felt too weak and tired ago. She has not been eating or drinking very well for couple days and has been having very poor appetite. The her sugars from diabetes have been running between the mid 100s in 600 for the last 2-3 days. She does chronically have very labile diabetes and mentions that she had a sugar as low as 19 three weeks ago that was asymptomatic. She says that typically she eats well and sticks to a reasonably good diabetic diet. The nurses at [facility] where she lives give her her insulin doses and the doses have not changed. She has been not been missing doses. Notably all of her shots are in her abdomen and they do move her insulin shot sites around the abdomen but she does not use her legs or other areas. Also notable is that for reasons that are not clear to me in terms of details, this past week she was given an extra dialysis 3 days ago on Sunday in addition to her usual Sunday. Her real estate attorney Dr. Andrade felt she needed an extra session but I do not have the details of what was going on requiring the extra session. She has had no recent difficulty accessing her fistula which is in her left arm and does not have any pain there. She has noticed a little bit of ache in her arms and legs yesterday and today. She has no other symptoms of upper respiratory tract infection, urinary infection, lower respiratory tract infection, skin rashes or lesions. 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 Andrade No tobacco or alcohol use She is ambulatory and does not have difficulty with this after her partial right foot amputation MEDICATIONS: The patients list has been reconciled by our clinical pharmacist in the EMR. I have reviewed the list and ordered appropriate medicines. Allergies to sulfa and Demerol PHYSICAL EXAMINATION: Vital Signs: Normal without fever Examination: General: Looks fairly fatigued, otherwise alert, oriented, good mentation, relaxed Skin: warm, dry, good color, no rash, no jaundice HEENT: normal Neck: no mass or jvd Resps: relaxed Lungs: clear breath sounds Heart: regular, no murmur Abdomen: soft, nondistended, nontender, +BS, no mass Upper Extremities: The fistula in her left arm overall appears in good condition with a good thrill, there is a small aneurysmal segment that is been there she says for about a month and is not changing, otherwise normal Lower Extremities: She has a forefoot amputation transmetatarsal on the right foot is very well healed; neither foot at this time shows any sign of skin or nail issues or other diabetic foot problems No Bleeding or bruising Neurologic: normal speech/language, normal it compliance analyst, no focal weakness IV site: looks normal LABORATORY DATA: Electrolytes in good range, but BUN greater than 100 and creatinine greater than 10, no significant acidosis ASSESSMENT: -suspect acute uremia symptoms may be the cause of her nausea and fatigue and weakness -missed dialysis session yesterday -severely labile diabetes mellitus, uncertain what the cause of this is. The uremia could be affecting it. In addition it may be that she needs her injection sites moved around more for her insulin shots; there does appear to be some dehydration at this time this is not severe but wonder if this could be affecting sugars at the moment; very likely that she also has some gastroparesis which may make her more prone to variability and to hypoglycemia. Her 1st sugar here so far is in good range -past history of C difficile, now stable and asymptomatic after previous fecal transplant. Given the timing of her last infection she does not need contact precautions at this time -chronic pain syndrome PLANS: -admission to hospital will need to be inpatient due to requirement for dialysis and with her labile sugars and poor intake will probably need to be here at least 48 hours -plan on dialysis probably tomorrow, no emergent indication to do a tonight -gentle IV hydration -recheck labs in morning -follow sugars closely, will continue her usual insulin regimen at this time as long as she is able to eat I have reviewed the patient's case in detail with Dr. Mcgowan I have reviewed the patient's past medical records as part of this assessment, including previous hospital admission records and laboratory data
[2017-02-27] MEDS ORDERED: EPOETIN ALFA 10,000 UNIT/ML VIAL SC SCH (18:00)
[2017-02-27] MEDS ORDERED: ONDANSETRON DISINTEGRATING 4 MG TAB PO PRN (18:59)
[2017-02-27] MEDS ORDERED: ONDANSETRON 4 MG/2 ML VIAL IVP PRN (18:59)
[2017-02-27] MEDS ORDERED: ACETAMINOPHEN 325 MG TAB PO PRN ×2 (18:59→19:31)
[2017-02-27] MEDS ORDERED: ZOLPIDEM TARTRATE 5 MG TAB PO PRN (18:59)
[2017-02-27] MEDS ORDERED: NS 1,000 ML IV SCH (19:00)
[2017-02-27] MEDS ORDERED: HYDROCODONE/APAP 5/325 TAB PO PRN (19:31)
[2017-02-27] MEDS ORDERED: GLUCOSE-INSTA 15 GM TUBE PO PRN (19:31)
[2017-02-27] MEDS ORDERED: IPRATROPIUM/ALBUTEROL 3 ML DEYVIAL IH PRN (19:31)
[2017-02-27] MEDS ORDERED: POLYETHYLENE GLYCOL 3350 17 GM PKT PO PRN (19:31)
[2017-02-27] MEDS: INSULIN LISPRO 100 UNIT/ML SC SCH (21:33)
[2017-02-27] MEDS: levETIRAcetam 500 MG TAB PO SCH (22:02)
[2017-02-27] MEDS: METOPROLOL TARTRATE 50 MG TAB PO SCH (22:02)
[2017-02-27] MEDS: amLODIPine BESYLATE 5 MG TAB PO SCH (22:02)
[2017-02-27] MEDS: PREGABALIN 50 MG CAP PO SCH (22:02)
[2017-02-27] MEDS: HEPARIN 5,000 UNIT/0.5 ML SYR SC SCH (22:03)
[2017-02-27] MEDS: INSULIN GLARGINE 100 UNITS/ML SYRINGE SC SCH (22:03)
[2017-02-27] MEDS: hydrALAZINE 10 MG TAB PO SCH (22:05)
[2017-02-27] MEDS ORDERED: INSULIN LISPRO 100 UNIT/ML SC ONE (23:30)
[2017-02-27] MEDS ORDERED: D50W 25 GM/50 ML VIAL IVP PRN (23:32)
--- NOTE | 2017-02-28 00:29 | GCON ---
[f rep st] CONSULTATION NEPHROLOGY CONSULTATION DATE OF CONSULTATION: 02/27/2017 REASON FOR CONSULTATION: Management of end-stage renal disease, nausea, and vomiting. HISTORY OF PRESENT ILLNESS: This is a -vwdw-lpn female with a past medical history signifi cant for severe and very brittle type 1 diabetes, along with multiple episodes of diabetic ketoacidos is. She has end-stage renal disease and dialyzes under the care of Dr. Miguel Andrade at the [facility]. In the past, the patient has had a history of multiple line infections. Berenice brasher, she now has a functional fistula. Her most recent admission to [facility] was 2 m onths ago, at which time she has C difficile colitis. She has since undergone a fecal transplant, an d this has dramatically improved her symptoms relating to this. The patient was in her baseline state of health up until yesterday, when she began developing severe nausea and vomiting. She did take her blood sugars, and they were greater than 600. She missed her Sunday dialysis relating to these symptoms. She presented today to the emergency room with the above complaints. Fortunately, she did not appear to be in diabetic ketoacidosis. However, relating to h er dehydration and intractable nausea and vomiting, she was admitted for definitive care. We are now asked by Dr. Mcgowan to assist with her renal diagnosis and management. PAST MEDICAL HISTORY: 1. C difficile colitis. 2. End-stage renal disease secondary to type 1 diabetes. 3. Recurrent episodes of DKA. 4. Hypertension. 5. Recurrent episodes of line bacteremia. 6. Hyperparathyroidism. 7. VRE urinary tract infections with urosepsis. 8. Neuropathy. PAST SURGICAL HISTORY: 1. Peritoneal dialysis catheter placement and removal. 2. Multiple tunneled dialysis catheters. 3. Left upper extremity fistula placed 2014. 4. Angioplasties to her AV fistula. 5. Tubal ligation. 6. Right foot transmetatarsal amputation. 7. Hammertoe surgery. MEDICATIONS: Home medications, these need to be confirmed. Keppra 500 mg at bedtime with the extra 250 mg after dialysis on Sunday, Sunday, and Sunday; hydralazine 35 mg t.i.d.; simvastatin 20 mg q .h.s.; Lyrica 50 mg q.h.s.; polyethylene glycol 17 g as needed; Zofran p.r.n. ; metoprolol 100 mg b.i .d.; losartan 100 mg daily; insulin as prescribed; Vicodin p.r.n.; glucagon as needed; iron sulfate 3 25 mg daily; Pepcid 20 mg daily; Lexapro 10 mg daily; aspirin 81 mg daily; amlodipine 5 mg daily; Tyl enol p.r.n.; herbal supplements daily. FAMILY HISTORY: Noncontributory. SOCIAL HISTORY: The patient has been living in [facility]. She does not smoke cigarettes or drink al cohol. REVIEW OF SYSTEMS: A 12 systems review was obtained. She denies fevers or chills. She denies any s ymptoms except for her nausea and vomiting. She has not had any stools in the past 24 hours. She beckford s not had dysuria. PHYSICAL EXAMINATION: GENERAL: At time of exam, the patient is appropriate and alert. VITAL SIGNS: Temperature is 36.8, heart rate 69, blood pressure 144/74. HEENT: Eyes: Sclerae clear. Orophary nx clear with false plates. NECK: No lymphadenopathy or thyromegaly. LUNGS: Clear to auscultation bilaterally. CARDIOVASCULAR: Regular rate and rhythm with an S4 noted. ACCESS: The patient's acc ess has a 3 mm healing eschar. There is a good thrill. ABDOMEN: Normoactive bowel sounds. Nontend er on palpation. : Deferred. RECTAL: Deferred. EXTREMITIES: Trace ankle edema. There are no open skin lesions. NEURO: Notable for her neuropathy. LABORATORY DATA: White count 6.9, hematocrit 26.1, platelet count 228. Sodium 130, potassium 4.8, B UN 100, creatinine 10.9. IMPRESSION AND PLAN: 1. End-stage renal disease. The patient's volume status and blood pressure are reasonably good. We will dialyze tomorrow with little ultrafiltration. Given her high BUN and creatinine, I will perfor m a gentle run tomorrow; she will likely need to run again on . We will monitor her fistula and the small eschar. 2. Anemia. The patient will be started on erythropoietin. 3. Nausea and vomiting. At this point, this does seem consistent with gastroparesis. She presently looks comfortable. 4. Diabetes. She has been treated and is on sliding scale insulin. Thank you for allowing us to participate in this patient's care. Will continue to follow along close ly with you. /[id number]/MODL
[2017-02-28 05:18] LABS: % IMMATURE GRANULYOCYTES 0.2 % (0.0-1.1); ABSOLUTE IMMATURE GRANULOCYTES 0.01 10^3/uL (0.00-0.10); ADD DIFF? NO; ADD MORPH? NO; ADD SCAN? NO; ATYPICAL LYMPHOCYTE FLAG 10 (0-99); FRAGMENT RBC FLAG 0 (0-99); HEMATOCRIT 26.8 % (38.0-47.0); HEMOGLOBIN 9.5 g/dL (12.6-16.3); LEFT SHIFT FLG 0 (0-99); LIPEMIA HEMOLYSIS FLAG 90 (0-99); MEAN CELL HEMOGLOBIN 31.7 pg (27.9-34.1); MEAN CELL HEMOGLOBIN CONCENTR. 35.4 g/dL (32.4-36.7); MEAN CELL VOLUME 89.3 fL (81.5-99.8); MEAN PLATELET VOLUME 10.5 fL (8.7-11.7); PLATELET CLUMPS FLAG 10 (0-99); PLATELET COUNT 236 10^3/uL (150-400); RED CELL DISTRIBUTION WIDTH 11.9 % (11.5-15.2)
[2017-02-28 05:37] LABS: ANION GAP 19 mEq/L (8-16); CALCIUM 9.6 mg/dL (8.5-10.4); CARBON DIOXIDE 22 mEq/l (22-31); CHLORIDE 94 mEq/L (97-110); GLOMERULAR FILTRATION RATE 4; GLUCOSE 90 mg/dL (70-100); SODIUM 135 mEq/L (134-144)
[2017-02-28 06:08] LABS: CREATININE 11.2 mg/dL (0.6-1.0)
[2017-02-28] MEDS: HEPARIN 5,000 UNIT/0.5 ML SYR SC SCH ×4 (06:12→21:11)
[2017-02-28 10:13] LABS: HEMOGLOBIN A1C 9.9 % (4.0-6.0)
--- NOTE | 2017-02-28 11:38 | SOAPPROG ---
SOAP Progress Note Assessment/Plan: 1. Uremia in chronic ESRD/dialysis pt -in dialysis now -per renal re scheduling -sxs a little improved 2. type 1 DM with hyperglycemia/labile -watch BS closely - likely gastroparesis element also 3. R hand/arm issues -PT/OT eval 4. Hx c diff, s/p fecal transplant 5. Anemia -epo per renal DISPO > 2 mdnts for stabilization DVT prophy- ambulation Subjective: In dialysis suite. Says 'feels terrible.' No further V, but has been nauseous. Had breakfast, says R hand pain made eating difficult. No trauma/fall to hand. Objective: Vital Signs Temp Pulse Resp BP Pulse Ox 98 F 62 18 93/51 L 95 02/28/17 07:23 02/28/17 07:23 02/28/17 07:23 02/28/17 07:23 02/28/17 07:23 Laboratory Results 02/28/17 04:23 02/28/17 04:23 Physical Exam - Physical Exam General Appearance: alert, mild distress, other (ill appearing) Respiratory: lungs clear, normal breath sounds, No respiratory distress, No accessory muscle use Cardiac/Chest: regular rate, rhythm, No edema Abdomen: normal bowel sounds, soft, other (mild ttp throughout), No distended, No guarding, No rebound Extremities: other (GROSS, 5/5 strongth in B UE/hands) Neuro/Psych: alert ICD10 Worksheet Patient Problems: Problems Problem Status Onset Dehydration Acute ESRD (end stage renal disease) Acute C. difficile diarrhea Acute ~07/29/16 C. difficile diarrhea Acute ~12/16/16 Diabetic ketoacidosis Acute
[2017-02-28] MEDS: hydrALAZINE 10 MG TAB PO SCH ×3 (11:55→20:58)
[2017-02-28] MEDS: ASPIRIN EC 81 MG TAB PO SCH (11:55)
[2017-02-28] MEDS: LOSARTAN POTASSIUM 50 MG TAB PO SCH (11:55)
[2017-02-28] MEDS: FERROUS SULFATE 325 MG TAB PO SCH (11:56)
[2017-02-28] MEDS: METOPROLOL TARTRATE 50 MG TAB PO SCH ×2 (11:56→20:59)
[2017-02-28] MEDS: ESCITALOPRAM OXALATE 10 MG TAB PO SCH (11:56)
[2017-02-28] MEDS: ATORVASTATIN CALCIUM 10 MG TAB PO SCH (11:56)
[2017-02-28] MEDS: FAMOTIDINE 20 MG TAB PO SCH (11:56)
[2017-02-28] MEDS: INSULIN GLARGINE 100 UNITS/ML SYRINGE SC SCH ×2 (12:05→20:59)
[2017-02-28] MEDS: ACETAMINOPHEN 500 MG TAB PO SCH (12:14)
[2017-02-28] MEDS: INSULIN LISPRO 100 UNIT/ML SC SCH ×3 (12:14→17:54)
[2017-02-28] MEDS: Sevelamer Carbonate [Renvela] 800 MG PO SCH ×3 (12:14→16:38)
--- NOTE | 2017-02-28 13:10 | SOAPPROG ---
[place] Progress Note Assessment/Plan: Assessment: 1. Esrd: hd today on typical mwf schedule. Missed Sunday but dialyzed Sat per pt. Volume status looks good, will tentatively plan next hd for Sunday unless labs dictate add'l hd . 2. Hyperglycemia: improved 3. n/v: appears to be improved but pt still c/o feeling quite poorly. Plan: 02/28/17 13:07 Subjective: Uneventful hd earlier today. Doesn't believe she feels any better but is currently eating hamburger without issue. Objective: Vital Signs Temp Pulse Resp BP Pulse Ox 36.7 C 81 18 149/99 H 92 02/28/17 12:00 02/28/17 12:00 02/28/17 12:00 02/28/17 12:00 02/28/17 12:00 Physical Exam - Physical Exam General Appearance: no apparent distress Respiratory: lungs clear Cardiac/Chest: regular rate, rhythm Extremities: pedal edema (none), other (+patent LUE avf) ICD10 Worksheet Patient Problems: Problems Problem Status Onset Dehydration Acute ESRD (end stage renal disease) Acute C. difficile diarrhea Acute ~07/29/16 C. difficile diarrhea Acute ~12/16/16 Diabetic ketoacidosis Acute
--- NOTE | 2017-02-28 14:51 | PDMN ---
Medical Necessity Medical necessity: Change to IP, as of 02/28/17, per MD; los >2 mn for eval/tx of N/V, fatigue/weakness & dehydration r/t uremia, possible gastroparesis, severely labile diabetes mellitus & missed dialysis session, admit for dialysis , IVF & monitoring; hx ESRD on chronic dialysis, DM, endocarditis, C-diff s/p fecal transplant, possible seizure disorder; per progress note & order 02/28/17
[2017-02-28 18:12] LABS: GLUCOSE 411 mg/dL (70-100)
[2017-02-28] MEDS ORDERED: levETIRAcetam 250 MG TAB PO SCH (19:31)
[2017-02-28] MEDS: levETIRAcetam 500 MG TAB PO SCH (20:59)
[2017-02-28] MEDS: PREGABALIN 50 MG CAP PO SCH (20:59)
[2017-02-28] MEDS: amLODIPine BESYLATE 5 MG TAB PO SCH (20:59)
[2017-03-01 04:54] LABS: % IMMATURE GRANULYOCYTES 0.2 % (0.0-1.1); ABSOLUTE IMMATURE GRANULOCYTES 0.01 10^3/uL (0.00-0.10); ADD DIFF? NO; ADD MORPH? NO; ADD SCAN? NO; ATYPICAL LYMPHOCYTE FLAG 10 (0-99); FRAGMENT RBC FLAG 0 (0-99); HEMATOCRIT 29.5 % (38.0-47.0); HEMOGLOBIN 10.2 g/dL (12.6-16.3); LEFT SHIFT FLG 0 (0-99); LIPEMIA HEMOLYSIS FLAG 90 (0-99); MEAN CELL HEMOGLOBIN 31.3 pg (27.9-34.1); MEAN CELL HEMOGLOBIN CONCENTR. 34.6 g/dL (32.4-36.7); MEAN CELL VOLUME 90.5 fL (81.5-99.8); MEAN PLATELET VOLUME 10.5 fL (8.7-11.7); PLATELET CLUMPS FLAG 0 (0-99); PLATELET COUNT 229 10^3/uL (150-400); RED BLOOD CELL COUNT 3.26 10^6/uL (4.18-5.33); RED CELL DISTRIBUTION WIDTH 12.1 % (11.5-15.2)
[2017-03-01 05:21] LABS: ALBUMIN 3.8 g/dL (3.5-5.0); ANION GAP 16 mEq/L (8-16); CARBON DIOXIDE 23 mEq/l (22-31); CHLORIDE 100 mEq/L (97-110); GLOMERULAR FILTRATION RATE 5; GLUCOSE 102 mg/dL (70-100); POTASSIUM 4.7 mEq/L (3.5-5.2); SODIUM 139 mEq/L (134-144)
[2017-03-01 05:26] LABS: CREATININE 7.7 mg/dL (0.6-1.0)
[2017-03-01] MEDS: HEPARIN 5,000 UNIT/0.5 ML SYR SC SCH ×3 (05:50→21:40)
[2017-03-01] MEDS ORDERED: SODIUM POLYSTYRENE SULF 454 GM POWDER PO SCH (09:00)
--- NOTE | 2017-03-01 10:15 | SOAPPROG ---
[place] Progress Note Assessment/Plan: Assessment/Plan: ESRD: on HD MWF. - Will do HD tomorrow per routine. HTN: continue current meds. Anemia: hgb at goal, getting weekly epo. Subjective: No acute events overnight. Pt resting comfortably this am, has no complaints. Objective: Vital Signs Temp Pulse Resp BP Pulse Ox 37.1 C 65 18 108/60 93 03/01/17 04:00 03/01/17 04:00 03/01/17 04:00 03/01/17 04:00 03/01/17 04:00 Laboratory Results 03/01/17 04:23 03/01/17 04:23 02/28/17 03/01/17 03/02/17 05:59 05:59 05:59 Intake Total 0 Output Total 600 Balance -600 General: alert and oriented, no acute distress Eyes: EOMI, PERRL OP: Clear CV: RRR Resp: nonlabored respirations Abd: Soft, ND Ext: no edema BLE ICD10 Worksheet Patient Problems: Problems Problem Status Onset Dehydration Acute ESRD (end stage renal disease) Acute C. difficile diarrhea Acute ~07/29/16 C. difficile diarrhea Acute ~12/16/16 Diabetic ketoacidosis Acute
[2017-03-01] MEDS: LOSARTAN POTASSIUM 50 MG TAB PO SCH ×2 (12:04→12:48)
[2017-03-01] MEDS: FAMOTIDINE 20 MG TAB PO SCH (12:04)
[2017-03-01] MEDS: hydrALAZINE 10 MG TAB PO SCH ×4 (12:04→21:23)
[2017-03-01] MEDS: ASPIRIN EC 81 MG TAB PO SCH (12:05)
[2017-03-01] MEDS: METOPROLOL TARTRATE 50 MG TAB PO SCH ×3 (12:05→21:23)
[2017-03-01] MEDS: ATORVASTATIN CALCIUM 10 MG TAB PO SCH (12:05)
[2017-03-01] MEDS: ESCITALOPRAM OXALATE 10 MG TAB PO SCH (12:05)
[2017-03-01] MEDS: INSULIN GLARGINE 100 UNITS/ML SYRINGE SC SCH ×2 (12:06→21:24)
[2017-03-01] MEDS: FERROUS SULFATE 325 MG TAB PO SCH (12:06)
[2017-03-01] MEDS: INSULIN LISPRO 100 UNIT/ML SC SCH ×3 (12:07→18:13)
[2017-03-01] MEDS: Sevelamer Carbonate [Renvela] 800 MG PO SCH ×2 (12:22→13:11)
[2017-03-01 13:39] LABS: COLOR PALE YELLOW; LEUKOCYTE ESTERASE,URINE 3+ (NEGATIVE); NITRITE,URINE NEGATIVE (NEGATIVE)
[2017-03-01 13:55] LABS: WBC,URINE 50-182 /hpf (0-3)
--- NOTE | 2017-03-01 14:01 | HOSPPROG ---
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 A1c of 9.9, patient continues to be non compliant with insulin and BS checks while here as well. # n/v/weakness: n/v has resolved, patient states she is still very weak and unable to walk, pt/ot involved, resides in a NH # h/o c diff: no current issues # anemia: stable, 2/2 renal disease, continue epo # dispo: IP status, likely dc back to [facility] tomorrow after HD Patient new to my care. Old records reviewed and summarized as above. Subjective: no significant overnight events, patient states she still cannot walk Objective: Vital Signs Temp Pulse Resp BP Pulse Ox 37.0 C 63 12 108/82 H 96 03/01/17 11:54 03/01/17 11:54 03/01/17 11:54 03/01/17 12:38 03/01/17 11:54 Laboratory Results 03/01/17 04:23 03/01/17 04:23 02/28/17 03/01/17 03/02/17 05:59 05:59 05:59 Intake Total 0 Output Total 600 Balance -600 somnolent arousable anicteric op clear rrr no mrg cta b soft nt nd no cce warm dry well perfused oriented flat affect ICD10 Worksheet Patient Problems: Problems Problem Status Onset Dehydration Acute C. difficile diarrhea Acute ~12/16/16 Diabetic ketoacidosis Acute C. difficile diarrhea Acute ~07/29/16 ESRD (end stage renal disease) Acute
--- NOTE | 2017-03-01 14:26 | ASMTCMCOM ---
CM Note CM Note Notes: D/w MD, pt will get dialysis Sunday and then dc back to [facility], [place] from here today to see pt. Current DC Plan: Dc to [facility] Date Signed: 03/01/2017 02:26 PM Electronically Signed By:Candi Dyer RN
[2017-03-01 17:54] LABS: CLOSTRIDIUM DIFFICILE DNA POSITIVE (NEGATIVE)
[2017-03-01 17:55] LABS: PRINT OR CALL CRITICALS TECH CALL
[2017-03-01] MEDS: SEVELAMER HCL 800 MG TAB PO SCH (18:13)
[2017-03-01] MEDS: PREGABALIN 50 MG CAP PO SCH (21:23)
[2017-03-01] MEDS: amLODIPine BESYLATE 5 MG TAB PO SCH (21:23)
[2017-03-01] MEDS: levETIRAcetam 500 MG TAB PO SCH (21:23)
[2017-03-01] MEDS: VANCOMYCIN 125 MG/2.5 ML UDL PO SCH (21:24)
[2017-03-02 05:08] LABS: % IMMATURE GRANULYOCYTES 0.3 % (0.0-1.1); ABSOLUTE IMMATURE GRANULOCYTES 0.02 10^3/uL (0.00-0.10); ADD DIFF? NO; ADD MORPH? NO; ADD SCAN? NO; ATYPICAL LYMPHOCYTE FLAG 10 (0-99); FRAGMENT RBC FLAG 0 (0-99); HEMATOCRIT 29.4 % (38.0-47.0); HEMOGLOBIN 9.8 g/dL (12.6-16.3); LEFT SHIFT FLG 0 (0-99); LIPEMIA HEMOLYSIS FLAG 80 (0-99); MEAN CELL HEMOGLOBIN 30.7 pg (27.9-34.1); MEAN CELL HEMOGLOBIN CONCENTR. 33.3 g/dL (32.4-36.7); MEAN CELL VOLUME 92.2 fL (81.5-99.8); MEAN PLATELET VOLUME 10.4 fL (8.7-11.7); PLATELET CLUMPS FLAG 0 (0-99); PLATELET COUNT 219 10^3/uL (150-400); RED BLOOD CELL COUNT 3.19 10^6/uL (4.18-5.33); RED CELL DISTRIBUTION WIDTH 12.3 % (11.5-15.2)
[2017-03-02 05:24] LABS: ALBUMIN 3.6 g/dL (3.5-5.0); ANION GAP 18 mEq/L (8-16); CALCIUM 9.5 mg/dL (8.5-10.4); CARBON DIOXIDE 18 mEq/l (22-31); CHLORIDE 100 mEq/L (97-110); GLOMERULAR FILTRATION RATE 4; GLUCOSE 143 mg/dL (70-100); POTASSIUM 4.6 mEq/L (3.5-5.2); SODIUM 136 mEq/L (134-144)
[2017-03-02 05:40] LABS: CREATININE 9.1 mg/dL (0.6-1.0)
[2017-03-02] MEDS: VANCOMYCIN 125 MG/2.5 ML UDL PO SCH ×2 (05:44→13:32)
[2017-03-02] MEDS: HEPARIN 5,000 UNIT/0.5 ML SYR SC SCH ×2 (07:28→13:30)
[2017-03-02 07:37] VITALS: RESP 12
--- NOTE | 2017-03-02 09:35 | SOAPPROG ---
SOAP Progress Note Assessment/Plan: Assessment/Plan: ESRD: on HD MWF. - Pt seen on HD this am per routine. - Next HD due on Sunday. HTN: continue current meds. Anemia: hgb at goal, getting weekly epo, she will continue to get epo and iron per outpatient dialysis unit protocol. Subjective: No acute events overnight. Pt denies any diarrhea. She is hoping to go home today after dialysis. Objective: Vital Signs Temp Pulse Resp BP Pulse Ox 36.6 C 63 12 106/56 L 93 03/02/17 07:31 03/02/17 07:31 03/02/17 07:31 03/02/17 07:31 03/02/17 07:31 Laboratory Results 03/02/17 04:39 03/02/17 04:39 03/01/17 03/02/17 03/03/17 05:59 05:59 05:59 Intake Total 0 Output Total 600 Balance -600 General: alert and oriented, no acute distress Eyes; EOMI, PERRL OP: Clear CV: RRR Resp: nonlabored respirations Abd: Soft, NT Ext: no edema BLE Neuro: CN II-XII grossly intact, no asterixis Psych: cooperative Access: LUE AVF cannulated ICD10 Worksheet Patient Problems: Problems Problem Status Onset Dehydration Acute ESRD (end stage renal disease) Acute C. difficile diarrhea Acute ~07/29/16 C. difficile diarrhea Acute ~12/16/16 Diabetic ketoacidosis Acute
[2017-03-02] MEDS: SEVELAMER HCL 800 MG TAB PO SCH ×2 (09:54→13:29)
[2017-03-02 12:16] VITALS: BP 102/75; PULSE 76; TEMP 98.5; O2SAT 95
[2017-03-02] MEDS: hydrALAZINE 10 MG TAB PO SCH ×2 (13:28→15:11)
[2017-03-02] MEDS: INSULIN LISPRO 100 UNIT/ML SC SCH ×2 (13:29→13:33)
[2017-03-02] MEDS: LOSARTAN POTASSIUM 50 MG TAB PO SCH (13:29)
[2017-03-02] MEDS: METOPROLOL TARTRATE 50 MG TAB PO SCH (13:30)
[2017-03-02] MEDS: ACETAMINOPHEN 500 MG TAB PO SCH (13:30)
[2017-03-02] MEDS: ATORVASTATIN CALCIUM 10 MG TAB PO SCH (13:30)
[2017-03-02] MEDS: ESCITALOPRAM OXALATE 10 MG TAB PO SCH (13:30)
[2017-03-02] MEDS: FERROUS SULFATE 325 MG TAB PO SCH (13:31)
[2017-03-02] MEDS: INSULIN GLARGINE 100 UNITS/ML SYRINGE SC SCH (13:32)
[2017-03-02] MEDS: FAMOTIDINE 20 MG TAB PO SCH (13:32)
[2017-03-02] MEDS: ASPIRIN EC 81 MG TAB PO SCH (13:51)
--- NOTE | 2017-03-02 13:55 | PDIAF ---
- Diagnosis Code Status: Full Code - Medication Management Discharge Medications: Medications to Continue on Transfer Acetaminophen [Tylenol 325mg (*)] 650 mg PO Q8 PRN 09/20/16 [Last Taken Unknown] Amlodipine Besylate [Norvasc] 5 mg PO HS 09/20/16 [Last Taken Unknown] Aspirin EC [Aspirin EC 81 mg (*)] 81 mg PO DAILY 09/20/16 [Last Taken Unknown] Famotidine [Pepcid 20 MG (*)] 20 mg PO DAILY 09/20/16 [Last Taken Unknown] Ferrous Sulfate [Ferrous Sulf 325 MG (*)] 325 mg PO DAILY 09/20/16 [Last Taken Unknown] Herbals/Supplements -Info Only 1 ea PO DAILY 09/20/16 [Last Taken Unknown] Insulin Lispro [Humalog] 6 unit SQ DAILY@12 09/20/16 [Last Taken 09/20/16] Insulin Lispro [Humalog] 8 unit SQ DAILY 09/20/16 [Last Taken 09/20/16] Insulin Lispro [Humalog] 10 unit SQ DAILY@17 09/20/16 [Last Taken 09/19/16] Losartan Potassium [Cozaar] 100 mg PO DAILY MDD HOLD IF SBP<120 09/20/16 [Last Taken Unknown] Ondansetron HCl [Zofran] 4 mg PO Q4H PRN 09/20/16 [Last Taken Unknown] Polyethylene Glycol 3350 [Miralax 17 gm (*)] 17 gm PO DAILY PRN 09/20/16 [Last Taken Unknown] Pregabalin [Lyrica 50mg (*)] 50 mg PO HS 09/20/16 [Last Taken Unknown] Simvastatin [Zocor] 20 mg PO HS 09/20/16 [Last Taken Unknown] hydrALAZINE [Apresoline 10 mg (*)] 35 mg PO TID 09/20/16 [Last Taken Unknown] levETIRAcetam [Keppra 500 mg (*)] 500 mg PO HS 09/20/16 [Last Taken Unknown] Acetaminophen [Tylenol ES 500 mg (*)] 1,000 mg PO MWF 12/15/16 [Last Taken Unknown] Escitalopram Oxalate [Lexapro 10 MG] 10 mg PO DAILY 12/15/16 [Last Taken Unknown ] Glucagon,Human Recombinant [Glucagon Emergency Kit] 1 mg IM Q2 PRN 12/15/16 [ Last Taken Unknown] Hydrocodone/Acetaminophen [[place] 5/325 (*)] 1 - 2 tab PO Q4HRS PRN 12/15/16 [ Last Taken Unknown] Insulin Glargine,Hum.rec.anlog [Lantus Solostar] 6 unit SQ BID 12/15/16 [Last Taken Unknown] levETIRAcetam [Keppra 250 mg (*)] 250 mg PO MOWEFR 12/15/16 [Last Taken Unknown] Dextrose [Glutose 15] 15 gm PO Q1 PRN 02/27/17 [Last Taken Unknown] Insulin Lispro [humALOG LISPRO 100 units/ml (*)] 0 unit SC TIDMEAL PRN 02/27/17 [Last Taken Unknown] Ipratropium/Albuterol [Duoneb (*)] 3 ml IH Q4 PRN 02/27/17 [Last Taken Unknown] Metoprolol Tartrate [Lopressor 50 mg (*)] 50 mg PO BID 02/27/17 [Last Taken Unknown] PE/Shark Liver/Gly/Pet,Wh [Preparation H Cream (*)] 1 kristina DC Q6 PRN 02/27/17 [ Last Taken Unknown] Sevelamer Carbonate [Renvela] 800 mg PO TIDMEAL 02/27/17 [Last Taken Unknown] Sodium Polystyrene Sulfonate 15 gm PO TUTHSA@09 02/27/17 [Last Taken Unknown] Vancomycin [Vancomycin (*)] 125 mg PO Q6 #40 cap 03/02/17 [Last Taken Unknown] Discharge Medications: Refer to the Discharge Home Medication list for PRN reason. - Orders Services needed: Registered Nurse, Certified Director Content Marketing, Physical Therapy, Occupational Therapy Isolation Type: CDIFF Isolation, Contact Isolation Diet Recommendation: sodium restricted, potassium restricted Weigh Patient: daily - Follow Up Care Current Providers and Referrals: ÁNGEL BENNETT [Other] - As per Instructions Renetta Rosario MD [Medical Doctor] - (per routine)
--- NOTE | 2017-03-02 13:56 | PDDCSUM ---
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 A1c of 9.9, patient continues to be non compliant with insulin and BS checks while here as well. # anemia: stable, 2/2 renal disease, continue epo Discharge back to [facility] F/u for HD as per routine MWF and with MD at facility > 35 min spent in dc more than half in coordination of care
--- NOTE | 2017-03-02 14:27 | ASDISCHSUM ---
Discharge Information Plan Status:SNF Medically Cleared to Leave:03/01/2017 Discharge Date:03/01/2017 CM D/C Disposition:[facility] Facility ADT D/C Disposition:[facility] Facility Projected Discharge Date:03/02/2017 11:00 AM Transportation at D/C: Discharge Delay Reason: Follow-Up Date:03/02/2017 11:00 AM Discharge Slot: Final Diagnosis: Placement Information Referral Type:*Assisted/SNF Referral ID:[id number] Provider Name:[facility] Address 1:[address] Address 2: City:[place] Selection Factors: State:[place] Patient Contact Information Contact Name:HARMAN Relationship:Sister Address:[address] Work Phone: City:[place] Alternate Phone: [facility]/Zip Code:[place] [address] Email: Financial Information Financial Class: Primary Plan Desc:MEDICARE INPATIENT Primary Plan Number:[id number] Secondary Plan Desc:MEDICA[place] Secondary Plan Number:[id number] Assessment Information LACE LACE Acuity / Level of Care Answers: Was the patient admitted to hospital via the emergency department? Yes: Comorbidities - select Answers: Diabetes with end organ all that apply damage Moderate or severe liver disease or renal disease Emergency dept visits in Answers: 4+ last 6 months Score: 13 Date Signed: 02/27/2017 05:09 PM Electronically Signed By:Yuliana Washington RN [facility] CM Progress Note CM Note CM Note Notes: Patient presented to ED from [facility] where she reside on [facility] bed. Patient has ESRD, DM and missed her dialysis appt yesterday. Pt admitted for hyperglycemia, vomiting and management of ESRD. Anticipate pt will DC back to [facility] once medically stable, CM to follow. Date Signed: 02/27/2017 05:13 PM Electronically Signed By:Yuliana Washington RN [facility] CM Progress Note CM Note CM Note Notes: D/w , pt will get dialysis Sunday and then dc back to [facility], [place] from here today to see pt. Current DC Plan: Dc to [facility] Date Signed: 03/01/2017 02:26 PM Electronically Signed By:Candi Dyer RN Intervention Information
== END 2017-03-02 16:09 | DRG 73 ==
LOC: EDUNIT# → INTOOBSV 15:54 → F3E 16:34 → OBSVTOIN 02-28 11:42
PROVIDERS: ADMIT Internal Medicine; ATTEND Internal Medicine
PROC: 5A1D70Z Performance of Urinary Filtration, Intermittent, Less than 6 Hours Per Day (ICD-10-PCS; principal; 2017-02-28)
DX: E10.43 Type 1 diabetes mellitus with diabetic autonomic (poly)neuropathy (principal); K31.84 Gastroparesis; E10.22 Type 1 diabetes mellitus with diabetic chronic kidney disease; N18.6 End stage renal disease; E10.65 Type 1 diabetes mellitus with hyperglycemia; E10.610 Type 1 diabetes mellitus with diabetic neuropathic arthropathy; D63.1 Anemia in chronic kidney disease; G89.29 Other chronic pain; A04.72 Enterocolitis due to Clostridium difficile, not specified as recurrent; Z91.14 Patient's other noncompliance with medication regimen; Z87.891 Personal history of nicotine dependence; Z99.2 Dependence on renal dialysis; Z79.4 Long term (current) use of insulin; Z87.440 Personal history of urinary (tract) infections; Z89.431 Acquired absence of right foot; Z59.0 Homelessness
CPT/HCPCS: 82947-QW; 97161-GP; 97165-GO; 97530-GO; G0378; G8978-GP-CI; G8979-GP-CI; G8987-GO-CJ; G8988-GO-CI; J0885; J1815; J2405

== ENCOUNTER 2017-03-22 10:44 | Emergency (ER) | payer OTHER, MEDICAID ==
[2017-03-22 11:08] VITALS: RESP 18
--- NOTE | 2017-03-22 11:13 | EDPHY ---
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 On arrival in the cab the patient stated that she felt sugar was low and could not sign the paperwork. She proceeded to have a decline and her mental status. She is accompanied by a nurse from [facility]. She did receive her usual Lantus and Humalog insulin this morning but it is unclear whether she ate her whole breakfast. Nursing staff reported that she had eaten her breakfast however the patient states she did not eat everything. No recent illness. She is here for follow-up for recent fecal transplant. No nausea or vomiting. No diarrhea. She does have a history of end-stage renal disease, last hemodialysis was yesterday. ROS: 10 point Review of Systems is negative except as noted in the HPI. PMH: End-stage renal disease, type 2 diabetes Social History: No smoking, no alcohol, patient resides in long-term care at [facility] Family History: non-contributory Physical Exam: Gen: Awake, confused HEENT: Nose: no rhinorrhea Eyes: PERRLA, EOMI Mouth: Moist mucosa Neck: Supple, no JVD Chest: nontender, lungs clear to auscultation Heart: S1, S2 normal, no murmur Abd: Soft, non-tender, no guarding Back: no CVA tenderness, no midline tenderness Ext: no edema, non-tender Skin: no rash Neuro: CN II-XII intact, Sensation grossly intact, Strength 5/5 in bilateral upper and lower extremities - Personal History Tetanus Vaccine Date: last 10 years - Medical/Surgical History Hx Asthma: No Hx Chronic Respiratory Disease: No Hx Diabetes: Yes Hx Cardiac Disease: No Hx Renal Disease: Yes Hx Cirrhosis: No Hx Alcoholism: No Hx HIV/AIDS: No Hx Splenectomy or Spleen Trauma: No Other PMH: DM 2, anemia, ESRF, Cdiff - Social History Smoking Status: Former smoker Constitutional: Initial Vital Signs Heart Rate 69 03/22/17 11:04 Respiratory Rate 18 03/22/17 11:04 Blood Pressure 161/78 H 03/22/17 11:04 O2 Sat (%) 97 03/22/17 11:04 O2 Delivery Mode Room Air O2 (L/minute) 2 Allergies/Adverse Reactions: meperidine HCl [From Demerol] Allergy (Intermediate, Verified 12/31/16 12:05) PARANOID, HALLUCINATIONS sulfamethoxazole [From Bactrim] Allergy (Verified 12/31/16 12:05) trimethoprim [From Bactrim] Allergy (Verified 12/31/16 12:05) Home Medications: Medication Instructions Recorded Acetaminophen [Tylenol 325mg (*)] 650 mg PO Q8 PRN 09/20/16 Amlodipine Besylate [Norvasc] 5 mg PO HS 09/20/16 Aspirin EC [Aspirin EC 81 mg (*)] 81 mg PO DAILY 09/20/16 Famotidine [Pepcid 20 MG (*)] 20 mg PO DAILY 09/20/16 Ferrous Sulfate [Ferrous Sulf 325 325 mg PO DAILY 09/20/16 MG (*)] Herbals/Supplements -Info Only 1 ea PO DAILY 09/20/16 Insulin Lispro [Humalog] 6 unit SQ DAILY@12 09/20/16 Insulin Lispro [Humalog] 8 unit SQ DAILY 09/20/16 Insulin Lispro [Humalog] 10 unit SQ DAILY@17 09/20/16 Losartan Potassium [Cozaar] 100 mg PO DAILY MDD HOLD IF SBP<120 09/20/16 Ondansetron HCl [Zofran] 4 mg PO Q4H PRN 09/20/16 Polyethylene Glycol 3350 [Miralax 17 gm PO DAILY PRN 09/20/16 17 gm (*)] Pregabalin [Lyrica 50mg (*)] 50 mg PO HS 09/20/16 Simvastatin [Zocor] 20 mg PO HS 09/20/16 hydrALAZINE [Apresoline 10 mg (*)] 35 mg PO TID 09/20/16 levETIRAcetam [Keppra 500 mg (*)] 500 mg PO HS 09/20/16 Acetaminophen [Tylenol ES 500 mg 1,000 mg PO MWF 12/15/16 (*)] Escitalopram Oxalate [Lexapro 10 10 mg PO DAILY 12/15/16 MG] Glucagon,Human Recombinant 1 mg IM Q2 PRN 12/15/16 [Glucagon Emergency Kit] Hydrocodone/Acetaminophen [[place] 1 - 2 tab PO Q4HRS PRN 12/15/16 5/325 (*)] Insulin Glargine,Hum.rec.anlog 6 unit SQ BID 12/15/16 [Lantus Solostar] levETIRAcetam [Keppra 250 mg (*)] 250 mg PO MOWEFR 12/15/16 Dextrose [Glutose 15] 15 gm PO Q1 PRN 02/27/17 Insulin Lispro [humALOG LISPRO 100 0 unit SC TIDMEAL PRN 02/27/17 units/ml (*)] Ipratropium/Albuterol [Duoneb (*)] 3 ml IH Q4 PRN 02/27/17 Metoprolol Tartrate [Lopressor 50 50 mg PO BID 02/27/17 mg (*)] PE/Shark Liver/Gly/Pet,Wh 1 kristina [place] Q6 PRN 02/27/17 [Preparation H Cream (*)] Sevelamer Carbonate [Renvela] 800 mg PO TIDMEAL 02/27/17 Sodium Polystyrene Sulfonate 15 gm PO TUTHSA@09 02/27/17 Vancomycin [Vancomycin (*)] 125 mg PO Q6 #40 cap 03/02/17 Medical Decision Making ED Course/Re-evaluation: IV established. Bloods drawn. 25 g of dextrose given IV by me. I-STAT chemistry revealed a blood sugar of 28. Patient improved after the IV dextrose. She is more awake and answering questions. She is given apple juice to drink. Will continue to observe. Plan will be to give her more complex carbohydrates to eat and reassess. 11:40 patient is feeling much better. She is eating crackers with peanut butter. Repeat blood sugars 142. 12:15 patient feels back to her normal self. She has been up and ambulating normally. She is eating crackers and peanut butter. Unfortunately she has Mr. gastroenterology platelets morning. Will discharge with follow-up with her physicians at [facility]. She has been instructed to make sure that she eats her full meals or that they need to reduce her insulin dosing. They will keep an eye on her blood sugars frequently today. There is no evidence of acute infectious process any other process contributing to her hypoglycemia today. - Data Points Laboratory Results: Laboratory Results 03/22/17 10:54 03/22/17 10:54 03/22/17 03/22/17 03/22/17 11:26 10:54 10:54 WBC 6.32 10^3/uL 10^3/uL (3.80-9.50) RBC 3.21 10^6/uL L 10^6/uL (4.18-5.33) Hgb 9.9 g/dL L g/dL (12.6-16.3) POC Hgb 10.2 gm/dL L gm/dL (12.6-16.3) Hct 30.2 % L % (38.0-47.0) POC Hct 30 % L % (38-47) MCV 94.1 fL fL (81.5-99.8) MCH 30.8 pg pg (27.9-34.1) MCHC 32.8 g/dL g/dL (32.4-36.7) RDW 12.9 % % (11.5-15.2) Plt Count 300 10^3/uL 10^3/uL (150-400) MPV 10.3 fL fL (8.7-11.7) Neut % (Auto) 30.8 % L % (39.3-74.2) Lymph % (Auto) 43.2 % % (15.0-45.0) [place] % (Auto) 19.8 % H % (4.5-13.0) Eos % (Auto) 4.6 % % (0.6-7.6) Baso % (Auto) 1.3 % % (0.3-1.7) Nucleat RBC Rel Count 0.0 % % (0.0-0.2) Absolute Neuts (auto) 1.95 10^3/uL 10^3/uL (1.70-6.50) Absolute Lymphs (auto) 2.73 10^3/uL 10^3/uL (1.00-3.00) Absolute Monos (auto) 1.25 10^3/uL H 10^3/uL (0.30-0.80) Absolute Eos (auto) 0.29 10^3/uL 10^3/uL (0.03-0.40) Absolute Basos (auto) 0.08 10^3/uL 10^3/uL (0.02-0.10) Absolute Nucleated RBC 0.00 10^3/uL 10^3/uL (0-0.01) Immature Gran % 0.3 % % (0.0-1.1) Immature Gran # 0.02 10^3/uL 10^3/uL (0.00-0.10) POC Sodium 139 mEq/L mEq/L (134-144) Sodium 144 mEq/L mEq/L (134-144) POC Potassium 3.3 mEq/L mEq/L (3.3-5.0) Potassium 3.3 mEq/L L mEq/L (3.5-5.2) POC Chloride 98 mEq/L mEq/L (97-110) Chloride 95 mEq/L L mEq/L (97-110) Carbon Dioxide 29 mEq/l mEq/l (22-31) Anion Gap 20 mEq/L H mEq/L (8-16) POC BUN 34 mg/dL H mg/dL (7-23) BUN 32 mg/dL H mg/dL (7-23) Creatinine 4.8 mg/dL H mg/dL (0.6-1.0) POC Creatinine 4.9 mg/dL H mg/dL (0.6-1.0) Estimated GFR Pending Glucose 27 mg/dL L* mg/dL (70-100) POC Glucose 142 mg/dL H mg/dL (70-100) Calcium 9.9 mg/dL mg/dL (8.5-10.4) Total Bilirubin 0.4 mg/dL mg/dL (0.1-1.4) AST 21 IU/L IU/L (14-46) ALT 27 IU/L IU/L (9-52) Alkaline Phosphatase 126 IU/L IU/L (38-126) Total Protein 7.5 g/dL g/dL (6.3-8.2) Albumin 4.0 g/dL g/dL (3.5-5.0) 03/22/17 10:48 WBC RBC Hgb POC Hgb 10.5 gm/dL L gm/dL (12.6-16.3) Hct POC Hct 31 % L % (38-47) MCV MCH MCHC RDW Plt Count MPV Neut % (Auto) Lymph % (Auto) [place] % (Auto) Eos % (Auto) Baso % (Auto) Nucleat RBC Rel Count Absolute Neuts (auto) Absolute Lymphs (auto) Absolute Monos (auto) Absolute Eos (auto) Absolute Basos (auto) Absolute Nucleated RBC Immature Gran % Immature Gran # POC Sodium 139 mEq/L mEq/L (134-144) Sodium POC Potassium 3.6 mEq/L mEq/L (3.3-5.0) Potassium POC Chloride 99 mEq/L mEq/L (97-110) Chloride Carbon Dioxide Anion Gap POC BUN 42 mg/dL H mg/dL (7-23) BUN Creatinine POC Creatinine 4.8 mg/dL H mg/dL (0.6-1.0) Estimated GFR Glucose POC Glucose 28 mg/dL L* mg/dL (70-100) Calcium Total Bilirubin AST ALT Alkaline Phosphatase Total Protein Albumin Medications Given: Discontinued Medications Dextrose (Dextrose 50% Syringe) 25 gm IVP EDNOW ONE Stop: 03/22/17 11:20 Last Admin: 03/22/17 11:42 Dose: 25 gm Point of Care Test Results: 03/22/17 03/22/17 10:48 11:26 POC Sodium 139 139 POC Potassium 3.6 3.3 POC Chloride 99 98 POC BUN 42 H 34 H POC Creatinine 4.8 H 4.9 H POC Glucose 28 L* 142 H Departure - Departure Disposition: Home, Routine, Self-Care Clinical Impression: Hypoglycemia Condition: Good Instructions: Hypoglycemia in a Person with Diabetes (ED) Additional Instructions: Make sure to eat full meals and check her blood sugar frequently. Return to the emergency department for persistent abnormally low or abnormally high blood sugars, fevers, chills, nausea, vomiting, or any other concerns. Referrals: ÁNGEL NGUYEN MD [Other] - As per Instructions
[2017-03-22] MEDS ORDERED: D50W 25 GM/50 ML SYR IVP ONE (11:19)
[2017-03-22 11:22] LABS: % IMMATURE GRANULYOCYTES 0.3 % (0.0-1.1); ABSOLUTE IMMATURE GRANULOCYTES 0.02 10^3/uL (0.00-0.10); ADD DIFF? NO; ADD MORPH? NO; ADD SCAN? NO; ATYPICAL LYMPHOCYTE FLAG 0 (0-99); FRAGMENT RBC FLAG 0 (0-99); HEMATOCRIT 30.2 % (38.0-47.0); HEMOGLOBIN 9.9 g/dL (12.6-16.3); LEFT SHIFT FLG 20 (0-99); LIPEMIA HEMOLYSIS FLAG 80 (0-99); MEAN CELL HEMOGLOBIN 30.8 pg (27.9-34.1); MEAN CELL HEMOGLOBIN CONCENTR. 32.8 g/dL (32.4-36.7); MEAN CELL VOLUME 94.1 fL (81.5-99.8); MEAN PLATELET VOLUME 10.3 fL (8.7-11.7); PLATELET CLUMPS FLAG 0 (0-99); PLATELET COUNT 300 10^3/uL (150-400); RED BLOOD CELL COUNT 3.21 10^6/uL (4.18-5.33); RED CELL DISTRIBUTION WIDTH 12.9 % (11.5-15.2)
[2017-03-22] MEDS ORDERED: D50W 25 GM/50 ML VIAL ONE (11:28)
[2017-03-22 11:30] LABS: BILIRUBIN,TOTAL 0.4 mg/dL (0.1-1.4); CALCIUM 9.9 mg/dL (8.5-10.4); CREATININE 4.8 mg/dL (0.6-1.0); POTASSIUM 3.3 mEq/L (3.5-5.2); TOTAL PROTEIN 7.5 g/dL (6.3-8.2)
[2017-03-22 11:44] VITALS: BP 124/62
[2017-03-22 12:47] VITALS: PULSE 74; TEMP 98; O2SAT 96
== END 2017-03-22 12:46 | disposition home or self-care (01) ==
LOC: CED 10:44
DX: E11.649 Type 2 diabetes mellitus with hypoglycemia without coma (principal); Z79.4 Long term (current) use of insulin; Z79.82 Long term (current) use of aspirin; Z87.891 Personal history of nicotine dependence
CPT/HCPCS: 80053-PO; 82947-QW; 85025-PO; 96374

== ENCOUNTER 2017-04-19 06:52 | Day surgery (SDC) | payer OTHER, MEDICAID ==
[2017-04-19] MEDS ORDERED: ALTEPLASE 2 MG VIAL IVP PRN (06:58)
[2017-04-19] MEDS ORDERED: fentaNYL 100 MCG/2 ML INJ IVP PRN (06:58)
[2017-04-19] MEDS ORDERED: PROTAMINE SULFATE 50 MG/5 ML VIAL IVP PRN (06:58)
[2017-04-19] MEDS ORDERED: HEPARIN 10,000 UNIT/10 ML MDV IVP PRN (06:58)
[2017-04-19] MEDS ORDERED: FLUMAZENIL 0.5 MG/5 ML MDV IVP PRN (06:58)
[2017-04-19] MEDS ORDERED: NALOXONE HCL 0.4 MG/ML INJ IVP PRN (06:58)
[2017-04-19] MEDS ORDERED: MIDAZOLAM 2 MG/2 ML VIAL IVP PRN (06:58)
[2017-04-19] MEDS ORDERED: NS 1,000 ML IV SCH (07:00)
[2017-04-19 07:56] VITALS: PULSE 92
[2017-04-19] MEDS ORDERED: D5W NS 1,000 ML IV SCH (08:30)
--- NOTE | 2017-04-19 08:54 | PDGENHP ---
History & Physical Chief Complaint: Told low flows through left upper extremity AVF History of Present Illness: 57 yo F w h/o DM, hyperlipidemia, HTN and ESRD on HD via LUE AVF, last dialyzed yesterday without issue. Was unaware of specific issues with her fistula until she was told flows have been low. S/p cephalic venoplasty x4 in September [address] Laguerre. Pertinent Past, Social, Family History: Non-contributory Relevant Physical Exam: Pulsatile LUE AVF with small PSA in the proximal fistula , thrill over and just distal to arterial anastomosis Cardiorespiratory Assessment: RRR, normal resp effort
--- NOTE | 2017-04-19 08:56 | PDPROPOC ---
Sedation Plan of Care Sedation Plan of Care: vital signs stable, mental status noted, patient educated of risks, benefits, alternatives, patient can tolerate sedation ASA Classification: ASA 3 Planned drugs: fentanyl, midazolam Mallampati Score: Class 3 Mallampati Reference Image: Patient passed 3-3-2 rule?: Yes
[2017-04-19] MEDS ORDERED: IOPAMIDOL (ISOVUE-300) 100 ML BTL ONE ×2 (09:04→10:17)
[2017-04-19] MEDS ORDERED: HEPARIN 10,000 UNIT/10 ML MDV ONE (09:12)
[2017-04-19] MEDS ORDERED: HEPARIN 1000 UNIT/1 ML MDV ONE (10:30)
[2017-04-19] MEDS ORDERED: ACETAMINOPHEN 325 MG TAB PO PRN (11:05)
--- NOTE | 2017-04-19 11:08 | PDRADPN ---
Radiology Procedure Note Date of Procedure: 04/19/17 Radiologist: Lupillo Meredith Anesthesia: IV Sedation Pre-op Diagnosis: ESRD on HD Post-op Diagnosis: ESRD on HD Indication: Low flows Procedure: Fistulogram, central venography, venoplasty w post venography Finding(s): See dicated report Inf/Abcess present in the surg proc area at time of surgery?: No EBL: Minimal (Less than 20 mL) Complications: No immediate
[2017-04-19 12:05] VITALS: RESP 18; TEMP 97.5
[2017-04-19 12:27] VITALS: O2SAT 98
[2017-04-19 12:42] VITALS: BP 165/100
== END 2017-04-19 13:00 | disposition home health service (06) ==
LOC: FIMAGING 06:52
PROVIDERS: ATTEND Radiology Diagnostic Radiology
PROC: B54NZZA Ultrasonography of Left Upper Extremity Veins, Guidance (ICD-10-PCS; principal; 2017-04-19 11:12)
PROC: 057F3ZZ Dilation of Left Cephalic Vein, Percutaneous Approach (ICD-10-PCS; principal; 2017-04-19 11:12)
PROC: B51N1ZA Fluoroscopy of Left Upper Extremity Veins using Low Osmolar Contrast, Guidance (ICD-10-PCS; principal; 2017-04-19 11:12)
PROC: 057A3ZZ Dilation of Left Brachial Vein, Percutaneous Approach (ICD-10-PCS; principal; 2017-04-19 11:12)
DX: T82.858A Stenosis of other vascular prosthetic devices, implants and grafts, initial encounter (principal); Y83.2 Surgical operation with anastomosis, bypass or graft as the cause of abnormal reaction of the patient, or of later complication, without mention of misadventure at the time of the procedure; E11.22 Type 2 diabetes mellitus with diabetic chronic kidney disease; N18.6 End stage renal disease; I12.0 Hypertensive chronic kidney disease with stage 5 chronic kidney disease or end stage renal disease; E78.5 Hyperlipidemia, unspecified
CPT/HCPCS: 36902; 99152; 99153; C1758; C1769; C1894; C1725; J1644; J2250; J2310; J3010; Q9967

== ENCOUNTER → 2017-05-15 | Outpatient (CLI) | payer OTHER, MEDICAID | LOC: FIMAGING 08:20 | PROVIDERS: ATTEND Physician Assistant | DX: K31.89 Other diseases of stomach and duodenum (principal) | CPT/HCPCS: 78264; A9541 ==

== ENCOUNTER 2017-05-29 09:33 | Inpatient (IN) | payer OTHER, MEDICAID ==
--- NOTE | 2017-05-29 09:46 | CPEKG ---
Heart Rate: 115 RR Interval: 522 P-R Interval: 120 QRSD Interval: 92 QT Interval: 352 QTC Interval: 487 P [place]: 77 QRS [place]: 79 T Wave [place]: 68 EKG Severity - BORDERLINE ECG - EKG Impression: SINUS TACHYCARDIA EKG Impression: BORDERLINE ST DEPRESSION, ANTEROLATERAL LEADS EKG Impression: BORDERLINE PROLONGED QT INTERVAL Electronically Signed By: Clement Mcgowan 29-May-2017 11:50:16
[2017-05-29 09:57] LABS: PLATELET COUNT 208 10^3/uL (150-400)
--- NOTE | 2017-05-29 10:00 | EDPHY ---
H & P Stated Complaint: AMS, Hypoxic Time Seen by Provider: 05/29/17 09:36 HPI/ROS: CHIEF COMPLAINT: Altered mental status HISTORY OF PRESENT ILLNESS: The patient is brought to the emergency department with altered mental status. She was found by nursing staff confused altered and tachypneic today. She has a history of end-stage renal disease and was last dialyzed 4 days ago. The patient is normally conversant. The patient is unable to provide history in the emergency department today. The patient has been observed to have be having occasional rigors in route. By report is no history of fall or trauma. The remainder of the history is fairly limited secondary to her altered mental status REVIEW OF SYSTEMS: A comprehensive 10 point review of systems is unobtainable secondary to altered mental status Source: EMS Exam Limitations: Clinical condition - Personal History Current Tetanus/Diphtheria Vaccine: Unsure Current Tetanus Diphtheria and Acellular Pertussis (TDAP): Unsure Tetanus Vaccine Date: last 10 years - Medical/Surgical History Hx Asthma: No Hx Chronic Respiratory Disease: No Hx Diabetes: Yes Hx Cardiac Disease: No Hx Renal Disease: Yes Hx Cirrhosis: No Hx Alcoholism: No Hx HIV/AIDS: No Hx Splenectomy or Spleen Trauma: No Other PMH: DM 2, anemia, ESRF, Cdiff - Social History Smoking Status: Former smoker - Physical Exam Exam: General Appearance: Deconditioned, somnolent, responds to painful stimuli Eyes: Pupils equal and round no pallor or injection ENT, Mouth: Dry mucous membranes Respiratory: Tachypnea, rhonchorous breath sounds bilaterally Cardiovascular: Tachycardic Gastrointestinal: Abdomen is soft and nontender, no masses, bowel sounds normal Neurological: Well to painful stimuli Skin: Warm and dry, no rashes Musculoskeletal: Neck is supple nontender Extremities: Prior right foot amputation Constitutional: Initial Vital Signs Temperature (C) 38.7 C H 05/29/17 09:42 Heart Rate 116 H 05/29/17 09:42 Respiratory Rate 26 H 05/29/17 09:42 Blood Pressure 179/83 H 05/29/17 09:42 O2 Sat (%) 88 L 18 09:42 O2 Delivery Mode Bi-Pap O2 (L/minute) 15 Allergies/Adverse Reactions: meperidine HCl [From Demerol] Allergy (Intermediate, Verified 05/29/17 09:42) PARANOID, HALLUCINATIONS sulfamethoxazole [From Bactrim] Allergy (Verified 05/29/17 09:42) trimethoprim [From Bactrim] Allergy (Verified 05/29/17 09:42) Home Medications: Medication Instructions Recorded Acetaminophen [Tylenol 325mg (*)] 650 mg PO Q8 PRN 09/20/16 Amlodipine Besylate [Norvasc] 5 mg PO HS 09/20/16 Aspirin EC [Aspirin EC 81 mg (*)] 81 mg PO DAILY 09/20/16 Famotidine [Pepcid 20 MG (*)] 20 mg PO DAILY 09/20/16 Ferrous Sulfate [Ferrous Sulf 325 325 mg PO DAILY 09/20/16 MG (*)] Herbals/Supplements -Info Only 1 ea PO DAILY 09/20/16 Insulin Lispro [Humalog] 6 unit SQ DAILY@12 09/20/16 Insulin Lispro [Humalog] 8 unit SQ DAILY 09/20/16 Insulin Lispro [Humalog] 10 unit SQ DAILY@17 09/20/16 Losartan Potassium [Cozaar] 100 mg PO DAILY MDD HOLD IF SBP<120 09/20/16 Ondansetron HCl [Zofran] 4 mg PO Q4H PRN 09/20/16 Polyethylene Glycol 3350 [Miralax 17 gm PO DAILY PRN 09/20/16 17 gm (*)] Pregabalin [Lyrica 50mg (*)] 50 mg PO HS 09/20/16 Simvastatin [Zocor] 20 mg PO HS 09/20/16 hydrALAZINE [Apresoline 10 mg (*)] 35 mg PO TID 09/20/16 levETIRAcetam [Keppra 500 mg (*)] 500 mg PO HS 09/20/16 Acetaminophen [Tylenol ES 500 mg 1,000 mg PO MWF 12/15/16 (*)] Escitalopram Oxalate [Lexapro 10 10 mg PO DAILY 12/15/16 MG] Glucagon,Human Recombinant 1 mg IM Q2 PRN 12/15/16 [Glucagon Emergency Kit] Hydrocodone/Acetaminophen [[place] 1 - 2 tab PO Q4HRS PRN 12/15/16 5/325 (*)] Insulin Glargine,Hum.rec.anlog 6 unit SQ BID 12/15/16 [Lantus Solostar] levETIRAcetam [Keppra 250 mg (*)] 250 mg PO MOWEFR 12/15/16 Dextrose [Glutose 15] 15 gm PO Q1 PRN 02/27/17 Insulin Lispro [humALOG LISPRO 100 0 unit SC TIDMEAL PRN 02/27/17 units/ml (*)] Ipratropium/Albuterol [Duoneb (*)] 3 ml IH Q4 PRN 02/27/17 Metoprolol Tartrate [Lopressor 50 50 mg PO BID 02/27/17 mg (*)] PE/Shark Liver/Gly/Pet,Wh 1 kristina [place] Q6 PRN 02/27/17 [Preparation H Cream (*)] Sevelamer Carbonate [Renvela] 800 mg PO TIDMEAL 02/27/17 Sodium Polystyrene Sulfonate 15 gm PO TUTHSA@09 02/27/17 Vancomycin [Vancomycin (*)] 125 mg PO Q6 #40 cap 03/02/17 Lactobacillus Acidophilus 04/12/17 Metamucil Powder 2 tsp PO BID 04/12/17 PROMETHAZINE HCL 25 mg PO Q4 PRN 04/12/17 Medical Decision Making - Diagnostics EKG Interpretation: EKG: Complete interpretation has been separately recorded in the [facility] archive. Summary impression: Sinus tachycardia, rate 115 Imaging Results: Imaging Impressions Chest X-Ray 05/29/17 09:40 Impression: Bronchitis and left basilar atelectasis. Head CT 05/29/17 09:52 Impression: 1. Mild atrophy. 2. No acute hemorrhage, hydrocephalus, or mass effect. 3. Cerebrovascular atherosclerosis. 4. No definite acute infarct. 5. Severe microvascular ischemic gliosis. 6. 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 7. Consider MRI of the brain, if there is continued clinical concern. Findings and recommendations discussed with Emergency Department physician, Clement Mcgowan, [id number] hours, 05/29/2017. Final report concurs with initial preliminary interpretation. ED Course/Re-evaluation: Patient presents to the ED with altered mental status. She has a history of diabetes and end-stage renal disease. Her blood sugar was 190 per EMS. The patient's initial potassium is 5.3. Her BUN is elevated at 69. I spoke with Dr. Magallanes at 10:30 a.m. - he is aware the patient will be admitted to the hospital and will consult. Consultation was made with the hospitalist service. The patient will be admitted to the intensive care unit by Dr. Bunn. The patient was taken for a stat noncontrast head CT scan given her confusion. This study demonstrated no evidence of intracranial hemorrhage. The patient was noted to be influenza positive. The patient is noted to have pyuria. A urine culture is pending. She is given 1 g of ceftriaxone for possible pyelonephritis. Differential Diagnosis: Differential diagnosis considered includes influenza, pyelonephritis, hyperkalemia, hypoglycemia, diabetic emergency Critical Care Time: Critical care time exclusive of procedures and exclusive of the PA's time was 55 minutes, performed by myself, Clement Mcgowan MD. The patient presents to the ED with tachycardia, fever, altered mental status in the setting of known end-stage renal disease and recently missed dialysis. Consultation was made with the intensive care unit team and Nephrology. - Data Points Laboratory Results: Laboratory Results 05/29/17 09:46 05/29/17 09:46 05/29/17 05/29/17 05/29/17 10:00 09:48 09:46 WBC RBC Hgb POC Hgb Hct POC Hct MCV MCH MCHC RDW Plt Count MPV Neut % (Auto) Lymph % (Auto) [place] % (Auto) Eos % (Auto) Baso % (Auto) Nucleat RBC Rel Count Absolute Neuts (auto) Absolute Lymphs (auto) Absolute Monos (auto) Absolute Eos (auto) Absolute Basos (auto) Absolute Nucleated RBC Immature Gran % Immature Gran # Puncture Site NONE GIVEN Patient Temperature 37.0 DEGREES DEGREES pCO2 37 mmHg mmHg (34-38) pO2 52 mmHg L mmHg (65-75) Total CO2 18 mEq/L L mEq/L (23-27) ABG pH 7.29 L (7.35-7.45) ABG HCO3 17 mEq/L L mEq/L (22-26) ABG O2 Saturation 80 % L % (92-95) ABG Base Excess -8.2 mEq/L L mEq/L (-2.5-2.5) ABG Lactic Acid 1.4 mmol/L mmol/L (0.5-1.6) POC Sodium Sodium 135 mEq/L mEq/L (135-145) POC Potassium Potassium 5.2 mEq/L mEq/L (3.5-5.2) POC Chloride Chloride 99 mEq/L mEq/L (97-110) Carbon Dioxide 14 mEq/l L mEq/l (22-31) Anion Gap 22 mEq/L H mEq/L (8-16) POC BUN BUN 72 mg/dL H mg/dL (7-23) Creatinine 9.6 mg/dL H* mg/dL (0.6-1.0) POC Creatinine Estimated GFR 4 Glucose 194 mg/dL H mg/dL (70-100) POC Glucose Calcium 9.4 mg/dL mg/dL (8.5-10.4) Nasal Influenza A PCR FLU A DETECTED H (NEGATIVE) Nasal Influenza B PCR NEGATIVE FOR FLU B (NEGATIVE) 05/29/17 05/29/17 09:46 09:39 WBC 8.50 10^3/uL 10^3/uL (3.80-9.50) RBC 3.43 10^6/uL L 10^6/uL (4.18-5.33) Hgb 10.4 g/dL L g/dL (12.6-16.3) POC Hgb 10.9 gm/dL L gm/dL (12.6-16.3) Hct 31.4 % L % (38.0-47.0) POC Hct 32 % L % (38-47) MCV 91.5 fL fL (81.5-99.8) MCH 30.3 pg pg (27.9-34.1) MCHC 33.1 g/dL g/dL (32.4-36.7) RDW 12.9 % % (11.5-15.2) Plt Count 208 10^3/uL 10^3/uL (150-400) MPV 10.1 fL fL (8.7-11.7) Neut % (Auto) 80.1 % H % (39.3-74.2) Lymph % (Auto) 9.1 % L % (15.0-45.0) [place] % (Auto) 9.4 % % (4.5-13.0) Eos % (Auto) 0.6 % % (0.6-7.6) Baso % (Auto) 0.6 % % (0.3-1.7) Nucleat RBC Rel Count 0.0 % % (0.0-0.2) Absolute Neuts (auto) 6.81 10^3/uL H 10^3/uL (1.70-6.50) Absolute Lymphs (auto) 0.77 10^3/uL L 10^3/uL (1.00-3.00) Absolute Monos (auto) 0.80 10^3/uL 10^3/uL (0.30-0.80) Absolute Eos (auto) 0.05 10^3/uL 10^3/uL (0.03-0.40) Absolute Basos (auto) 0.05 10^3/uL 10^3/uL (0.02-0.10) Absolute Nucleated RBC 0.00 10^3/uL 10^3/uL (0-0.01) Immature Gran % 0.2 % % (0.0-1.1) Immature Gran # 0.02 10^3/uL 10^3/uL (0.00-0.10) Puncture Site Patient Temperature pCO2 pO2 Total CO2 ABG pH ABG HCO3 ABG O2 Saturation ABG Base Excess ABG Lactic Acid POC Sodium 133 mEq/L L mEq/L (135-145) Sodium POC Potassium 5.3 mEq/L H mEq/L (3.3-5.0) Potassium POC Chloride 102 mEq/L mEq/L (97-110) Chloride Carbon Dioxide Anion Gap POC BUN 69 mg/dL H mg/dL (7-23) BUN Creatinine POC Creatinine 10.8 mg/dL H* mg/dL (0.6-1.0) Estimated GFR Glucose POC Glucose 201 mg/dL H mg/dL (70-100) Calcium Nasal Influenza A PCR Nasal Influenza B PCR Point of Care Test Results: 05/29/17 09:39 POC Sodium 133 L POC Potassium 5.3 H POC Chloride 102 POC BUN 69 H POC Creatinine 10.8 H* POC Glucose 201 H Departure - Departure Disposition: [facility] Inpatient Acute Clinical Impression: ESRD (end stage renal disease), Uremia, Influenza Condition: Critical
[2017-05-29] MEDS ORDERED: ZOLPIDEM TARTRATE 5 MG TAB PO PRN (11:18)
[2017-05-29] MEDS ORDERED: ACETAMINOPHEN 325 MG TAB PO PRN (11:18)
[2017-05-29] MEDS ORDERED: ONDANSETRON DISINTEGRATING 4 MG TAB PO PRN (11:18)
[2017-05-29] MEDS ORDERED: ONDANSETRON 4 MG/2 ML VIAL IVP PRN (11:18)
[2017-05-29] MEDS ORDERED: OSELTAMIVIR PHOSPHATE 75 MG CAP PO ONE (11:22)
[2017-05-29] MEDS ORDERED: cefTRIAXone 1 GM in STERILE WATER INJ 10 ML IV ONE (11:23)
[2017-05-29] MEDS ORDERED: NS W/ 20 KCl/L 1,000 ML IV SCH (11:30)
[2017-05-29] MEDS ORDERED: ACETAMINOPHEN 650 MG SUPP PR PRN (12:42)
[2017-05-29] MEDS ORDERED: ACETAMINOPHEN 650 MG SUPP PR ONE (12:49)
[2017-05-29] MEDS ORDERED: LORazepam 2 MG/ML INJ IVP ONE (13:18)
[2017-05-29] MEDS ORDERED: levETIRAcetam 1000MG/NACL 100 ML IV ONE (13:18)
[2017-05-29] MEDS ORDERED: LORazepam 2 MG/ML INJ ONE (13:21)
--- NOTE | 2017-05-29 13:47 | PDGENHP ---
History and Physical History and Physical: CC: Altered mentation and vital sign HISTORY: This patient who lives at [facility] was sent from that facility to our ER today because of change in mentation and vital signs. I do not have the notes directly from the nursing facility, but my understanding is that she was unresponsive. As she arrived in our ER here she has been unresponsive from talking per nurses though the ER doctor mentions that she may been responsive to pain. She was febrile with tachypnea tachycardia but stable blood pressures. It was identified that she had influenza a, and there was some concern about possible sepsis so blood cultures were drawn some fluid was administered and she was given a dose of empiric Rocephin. There were no localizing features identified in the ER for any other source of infection or fever. She was transported to the intensive care unit which is where I am seeing her as she arrives here, and she is unresponsive at this time with ongoing fever, and tachycardia though her tachycardia and tachypnea are improved. She is oxygenating well with some supplemental oxygen. We have a history that she has had some vomiting and diarrhea at her nursing facility. No other acute history or review of systems is available at this time. I did speak to her nephrology team as she is a dialysis patient and I understand that she was last dialyzed on SundayMay 25 at which time she felt and looked quite well. She did not go to dialysis 2 days ago on Sunday as she felt too poorly apparently with her influenza symptoms. She was last seen at this hospital in February 2017 at which time she was admitted with nausea vomiting and other uremic symptoms having missed a couple of dialysis sessions. She was treated with dialysis sessions in the hospital and recovered quite well and was discharged back to home without further incident at that time. 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 Andrade as her primary physics professor MEDICATIONS: The patients list has been reconciled by our clinical pharmacist in the EMR. I have reviewed the list and ordered appropriate medicines. PHYSICAL EXAMINATION: Vital Signs: Tachycardia at 120 at the time of admission, now pulse down to approximately 99-105 in sinus rhythm, initial respiratory rate in the mid 30s have slowed down to the mid 20s, mild hypertension at 150-155 which is close to her usual range, currently with fever 39.5 Compensation Advisor: Sinus tachycardia Examination: General: Comatose lying in bed completely unresponsive with eyes closed, has recurrent periodic repetitive I have movements where her eyelids twitch then open at which time her eyes have a downward gaze but drift up to a forward gaze and slowly in a staccato fashion drift to a right gaze then back to forward gaze at which time her eyes closed again, no tremor or other motor activity or myoclonus at this time, no abnormal tone or posturing Skin: warm, dry, good color, no rash HEENT: normal Neck: no mass or jvd Resps: relaxed Lungs: clear breath sounds Heart: regular, no murmur Abdomen: soft, nondistended, nontender, +BS, no mass Upper Extremities: normal Lower Extremities: no edema, warm No Bleeding or bruising Neurologic: normal speech/language, normal range mechanic, no focal weakness IV site: looks normal LABORATORY DATA: Sodium 135 potassium 5.2, metabolic acidosis present, creatinine 10 Sugars 190-200 WBC 8000, hemoglobin 10 RADIOLOGY STUDIES: Chest x-ray done in the ER reviewed the images, radiologist reads with no acute concerning findings, my interpretation is a question of subtle right middle lobe infiltrate CT scan of the head done in the ER, read by radiologist with no acute stroke bleed mass edema shift or other concerning abnormalities 12 LEAD EKG: Read by me, sinus tachycardia without other acute concerning changes ASSESSMENT: -status epilepticus at this time inpatient with coma and abnormal eye movements -history of seizure disorder, uncertain medication compliance but the patient has had apparent vomiting and diarrhea, suspect she missed or did not absorb Keppra doses at home with her influenza -acute influenza a with high fevers tachycardia -possible small aspiration to right middle lobe by x-ray, suspect largely due to her comatose state possible seizure at this time -acute hypoxemia -Metabolic acidosis suspect is multifactorial with recent GI bicarbonate losses as well as her renal disease last dialyzed 5 days ago, as well as seizure activity -end-stage renal disease on dialysis last seen at dialysis 5 days ago doing well then; missed dialysis 2 days ago due to acute illness with influenza -diabetes mellitus on chronic insulin therapy at home; moderate hyperglycemia at this time, history of labile sugars -chronic hypertension with labile blood pressures; currently with mild systolic hypertension -prior history of bacterial endocarditis caused by an infected dialysis catheter , previously treated with apparent success -history of recurrent C difficile colitis, eventually treated with fecal transplant which was reportedly successful* she was last treated with antibiotics for active C difficile symptoms in December 2016 at our hospital, and subsequent to that was treated with a fecal transplant. She was not having any symptoms of C difficile colitis or enteritis in February 2017 during a subsequent admission here -chronic depression -uncertain history of rheumatoid arthritis PLANS: -stat doses of 2 mg Ativan and 1 g Keppra intravenously have been given -if she does not come out of coma/seizure picture may need to move her to the [facility] or [facility] as we do not have continuous monitoring nor emergently available neurology consultation here at this hospital -she is just beginning dialysis; I review with the dialysis nurse that the patient has been having GI fluid losses at home and with acute febrile illness probably will not tolerate much fluid removal and we have decided to decrease the original order which was to remove 2-3 L to start at 1 L and see how she tolerates that careful here in ICU -I have started Tamiflu emergent here now -I have started empiric Rocephin in case she ends up having any bacterial infection involved missed, blood cultures have been done -will start some Flagyl or p.o. vancomycin when able as well for prevention against recurrence of her C diff -will work with physics professor and pharmacist on renal dosing of all of her medicines -Nephrology consult -critical care consult I have reviewed the patient's case in detail with Dr. Eder Betancourt and Dr. Waqas Magallanes, and with Dr Melgar at [facility] I have reviewed the patient's past medical records as part of this assessment, including previous hospital admission records medication list and laboratory results ADDENDUM: I reviewed the case in detail with Dr. Eder Betancourt who agreed that this sounds like status epilepticus. H she has had her doses of Keppra and Ativan with no change in her neurologic examination, still comatose with repetitive pattern eye movements as described above. At this point we are giving her some fosphenytoin but it appears that she is likely having status epilepticus which we cannot monitor or manage appropriately at this hospital. I have spoken to Dr. Melgar at [facility] who shares the concerned that this is likely status epilepticus, and is accepting her as a transfer to the intensive care unit at [facility]. We have begun arrangements to trying get her transported by ambulance there at this time. She is finishing her dialysis here shortly which is going well. She continues to have some fever, stable blood pressures, pulse 100, respirations 28 saturating well on nasal cannula oxygen. In terms of her seizure medicines the Jamarcusppra is at least partially dialyzed, and I reviewed this with our pharmacist here. Their recommendation had been for giving a repeat dose of 250 mg to 500 mg Keppra after she completes dialysis. Depending on the timing of transport will give that does here or she may need to get it at [facility]. Greater than 110 min of critical care time with this patient today
--- NOTE | 2017-05-29 16:25 | PDMN ---
Medical Necessity Medical necessity: est los>2mn for suspected status epilepticus, comatose, abnormal eye movements, N/V/D w/possible missed med doses, acute influenza A, acute hypoxemic resp failure, metabolic acidosis; admit for ICU, IV Keppra, dialysis, IV abx, follow cx's, neph and critical care consults; may require transfer to [place] or [facility] ; comorbid ESRD, IDDM, sz disorder, hx endocarditis and htn; per order and H&P
[2017-05-29] MEDS ORDERED: FOSPHENYTOIN IV ONE (17:00)
[2017-05-29] MEDS ORDERED: NS IV ONE (17:00)
--- NOTE | 2017-05-29 17:34 | GCON ---
[f rep st] CONSULTATION CHANNELER CONSULTATION REASON FOR ADMISSION: Altered mental status. Ms. Reynoso is a 57-year-old white female with extensiv e past medical history including end-stage renal disease, insulin-dependent diabetes, hypertension, d epression, endocarditis, Clostridium difficile, and a seizure disorder for which she is on Keppra. S he presented to the emergency room with altered mental status. She was found by the nursing staff jorge rkedly confused. She was brought to the emergency department and subsequently admitted to the intens luz elena care unit. She was last dialyzed 4 days prior. No other history is obtainable. REVIEW OF SYSTEMS: A 10-point review of systems was attempted but unable to be completed secondary t o altered mental status. PAST MEDICAL HISTORY: Significant for hypertension, depression, endocarditis, seizure disorder, diab etes, and end-stage renal disease. FAMILY HISTORY: Significant for diabetes. SOCIAL HISTORY: No history of tobacco use. No history of alcohol use. She resides at [facility] . PAST SURGICAL HISTORY: She has a right partial foot amputation. ALLERGIES: Sulfa and Demerol. PHYSICAL EXAM: VITAL SIGNS: Blood pressure is 142/57, pulse 101, respirations 29, temperature 39.5, oxygen saturation 95% on 15 L non-rebreather. GENERAL: She is a 57-year-old white female who is ob tunded on supplemental oxygen, currently on dialysis. HEENT: Eyes are JESSICA, EOMI. Throat exam is d eferred. NECK: Supple. There is no cervical adenopathy. HEART: Regular rate and rhythm with a 2/ 6 systolic murmur at the left sternal border without radiation. LUNGS: Diminished breath sounds and a prolongation of expiratory phase. There are a few bibasilar crackles. ABDOMEN: Soft, nontender. Bowel sounds are present. EXTREMITIES: Show no clubbing, cyanosis, or edema. NEURO: The patient is having what appears to be myoclonus or possible seizure activity. LABORATORIES: White count is 8.5, hemoglobin 10, hematocrit 31, platelet count is 208. Sodium 133, potassium 5.3, chloride 102, CO2 is 14, BUN is 72, creatinine 9.6, glucose 194. Arterial blood gas, pH 7.29, pCO2 of 37, pO2 of 52, bicarb 18, oxygen saturation 80%. Urinalysis pH is 7, specific gravi ty 1.008, 3+ protein, 50-182 WBCs, 2+ bacteria. Influenza B is positive. Chest x-ray shows bronchit is. IMPRESSION: 1. Altered mental status. Etiology which is unclear. It is concerning that her neuro exam reveals p ossible seizure activity. She is currently back on Keppra. 2. Acute respiratory failure. I feel this is likely secondary to aspiration as well as her influenz a. 3. Influenza B. 4. End-stage renal disease, on dialysis. 5. Possible seizures. 6. Diabetes. Blood sugars are under control currently. 7. Metabolic acidosis. 8. Possible aspiration. RECOMMENDATIONS: 1. Agree with current dialysis. 2. Agree with supplemental oxygen. 3. Patient has been given 1 dose of ceftriaxone. 4. Aggressive blood sugar control. 5. DVT and PE prophylaxis. 6. Stress ulcer prophylaxis. 7. Wean FiO2 as tolerated. Thank you very much. /[id number]/MODL
[2017-05-29 17:46] VITALS: BP 125/51; PULSE 97; RESP 30; TEMP 101.5; O2SAT 90
[2017-05-29] MEDS ORDERED: IPRATROPIUM/ALBUTEROL 3 ML DEYVIAL IH PRN (17:50)
[2017-05-29] MEDS ORDERED: HEPARIN 5,000 UNIT/0.5 ML SYR SC SCH (22:00)
[2017-05-29 23:16] LABS: HEPATITIS B SURFACE ANTIGEN NEGATIVE (NEGATIVE)
[2017-05-30] MEDS ORDERED: ENOXAPARIN 40 MG/0.4 ML SYR SC SCH (09:00)
== END 2017-05-29 18:56 | disposition short-term general hospital (02) | DRG 100 ==
LOC: EDUNIT# → F2N 12:46
PROVIDERS: ADMIT Internal Medicine; ATTEND Internal Medicine
DX: G40.909 Epilepsy, unspecified, not intractable, without status epilepticus (principal); I13.2 Hypertensive heart and chronic kidney disease with heart failure and with stage 5 chronic kidney disease, or end stage renal disease; N18.6 End stage renal disease; E87.2 Acidosis; J11.1 Influenza due to unidentified influenza virus with other respiratory manifestations; E11.9 Type 2 diabetes mellitus without complications; F32.9 Major depressive disorder, single episode, unspecified; Z79.4 Long term (current) use of insulin; Z99.2 Dependence on renal dialysis; Z87.891 Personal history of nicotine dependence
CPT/HCPCS: 82947-QW; J0696; J1953; J2060; Q2009

== ENCOUNTER 2017-07-30 13:08 | Inpatient (IN) | payer OTHER, MEDICAID ==
--- NOTE | 2017-07-30 13:17 | EDPHY ---
H & P Time Seen by Provider: 07/30/17 13:08 HPI/ROS: CHIEF COMPLAINT: Altered mental status HISTORY OF PRESENT ILLNESS: Patient was normal at 12:30 p.m. today per EMS, who got this report from [facility] staff. The patient was then found altered and hypoxic. She was brought in by EMS emergent. On arrival the patient has no complaints. She does however have difficulty with her speech and is slurring her words as well as having a low oxygen saturation. She is able to answer questions appropriately. Unknown if the patient had a seizure. REVIEW OF SYSTEMS: Eye: Denies double vision or change in vision ENT: no sore throat Cardiac: no chest pain Pulmonary: no cough or SOB Abdomen: no vomiting, diarrhea, abdominal pain Musculoskeletal: No neck pain Skin: Left arm fistula, some bruising from access. Neuro: no headache, see HPI Constitutional: no fever : no urinary symptoms A comprehensive 10 point review of systems is otherwise negative aside from elements mentioned in the history of present illness, but limited by the patient 's dysarthria. PAST MEDICAL HISTORY: Includes diabetes, hypertension, seizure disorder, end- stage renal disease on dialysis. Social history: [facility] resident General Appearance: Alert and opens eyes spontaneously. Eyes: No scleral icterus. Pupils responsive to light. ENT, Mouth: Normal mucous membranes. No tongue laceration or abrasion. Respiratory: Normal respiratory effort, breath sounds equal, lungs are clear to auscultation. Cardiovascular: Regular rate and rhythm. Left upper arm fistula present. Gastrointestinal: Abdomen is soft and non tender. Neurological: Patient is able to follow commands. She has slight right facial droop and questionable very mild right pronator drift. Extraocular motion intact. She is able to move all 4 extremities, however she cannot lift either leg off the bed. She has good equal bilateral resistor coater strength. Slurring her speech a little bit. Skin: Warm and dry, no rashes. Musculoskeletal: Right transmetatarsal foot amputation. Psychiatric: Not agitated. Emergency Department course/MDM: Made a stroke alert by myself on arrival. Emergently to CT scan. Creatinine is noted as elevated. Glucose is 183. Discussed with Dr. Carver from [facility] at 1:[address] per [place] for acute stroke or intracranial hemorrhage or mass. 1339: Recommendation of [facility] [employer] consultant Dr. Fine after telemedicine evaluation is to not give IV tPA. Reason is at this time some uncertainty about whether this represents ischemic stroke or some other diagnosis including but not limited to metabolic or related to seizure disorder. Patient had some difficulty cooperating with the exam, for example when asked to do [id number] would not attempt with her left arm and hand even with repeated attempts to explain the examination. 1423: Unable to do quality CT angiography as 2 separate IVs extravasated in her right arm, planned admission to hospitalist with Neurology consultation. 1427: Dr. Purvis neurology will consult. 1432: Discussed with Dr. Kristine Powell hospitalist, with elevated troponin request echocardiogram which is ordered. Per Dr. Berumen incomplete CTA but no carotid or vertebral occlusion seen, CTA head not diagnostic due to quality. Nephrology consulted for dialysis as the patient appears to be hypoxic because of pulmonary fluid overload on x-ray. Smoking Status: Former smoker Constitutional: Initial Vital Signs Temperature (C) 36.7 C 07/30/17 13:08 Heart Rate 74 07/30/17 13:08 Respiratory Rate 14 07/30/17 13:08 Blood Pressure 192/87 H 07/30/17 13:08 O2 Sat (%) 85 L 07/30/17 13:08 O2 Delivery Mode Nasal Cannula O2 (L/minute) 3 Allergies/Adverse Reactions: meperidine HCl [From Demerol] Allergy (Intermediate, Verified 05/29/17 09:42) PARANOID, HALLUCINATIONS sulfamethoxazole [From Bactrim] Allergy (Verified 05/29/17 09:42) trimethoprim [From Bactrim] Allergy (Verified 05/29/17 09:42) Home Medications: Medication Instructions Recorded Acetaminophen [Tylenol 325mg (*)] 650 mg PO Q8 PRN 09/20/16 Aspirin EC [Aspirin EC 81 mg (*)] 81 mg PO DAILY 09/20/16 Famotidine [Pepcid 20 MG (*)] 20 mg PO DAILY 09/20/16 Ferrous Sulfate [Ferrous Sulf 325 325 mg PO DAILY 09/20/16 MG (*)] Herbals/Supplements -Info Only 1 ea PO DAILY 09/20/16 Insulin Lispro [Humalog] 4 unit SQ TID 09/20/16 Losartan Potassium [Cozaar] 100 mg PO HS 09/20/16 Polyethylene Glycol 3350 [Miralax 17 gm PO DAILY PRN 09/20/16 17 gm (*)] Pregabalin [Lyrica 50mg (*)] 50 mg PO HS 09/20/16 Simvastatin [Zocor] 20 mg PO HS 09/20/16 levETIRAcetam [Keppra 500 mg (*)] 500 mg PO HS 09/20/16 Acetaminophen [Tylenol ES 500 mg 1,000 mg PO MWF@12 12/15/16 (*)] Escitalopram Oxalate [Lexapro 10 10 mg PO DAILY 12/15/16 MG] Hydrocodone/Acetaminophen [[place] 1 tab PO Q4HRS PRN 12/15/16 5/325 (*)] Insulin Glargine,Hum.rec.anlog 6 unit SQ BID 12/15/16 [Lantus Solostar] Sodium Polystyrene Sulfonate 15 gm PO DAILY PRN 02/27/17 Promethazine HCl [Phenergan 25mg 25 mg PO Q4HRS PRN 04/12/17 (*)] Bisacodyl [Dulcolax] 10 mg RC DAILY PRN 05/29/17 Loperamide HCl [Imodium 2 mg (*)] 4 mg PO Q4HRS PRN 05/29/17 Metoprolol Tartrate [Lopressor 50 50 mg PO BID 05/29/17 mg (*)] Sennosides/Docusate Sodium 1 each PO BID PRN 05/29/17 [Senna-S Tablet] Albuterol [Proventil Neb] 3 ml IH Q6H PRN 07/30/17 Hydrocodone/Acetaminophen [[place] 2 each PO Q4H PRN 07/30/17 5/325 (*)] Sevelamer Carbonate [Renvela] 800 mg PO TID 07/30/17 amLODIPine BESYLATE [Norvasc 2.5 2.5 mg PO HS 07/30/17 mg (*)] Medical Decision Making - Diagnostics EKG Interpretation: 12-lead EKG interpreted by me; official reading is in trace master. My interpretation is sinus rhythm with borderline prolonged QT, rate 72, no ischemic changes. Imaging Results: Imaging Impressions Chest X-Ray 07/30/17 13:16 Impression: Diffuse reticulonodular opacities which could be related to pulmonary edema or airways disease, with indistinct left basilar opacities that could represent atelectasis or early pneumonia. Head CT 07/30/17 13:16 Impression: 1. No intracranial hemorrhage or definite large infarct. Consider MRI of the brain, if there is continued clinical concern. 2. Stable extensive microvascular ischemic change of white matter. Findings were communicated by telephone with Dr. GAEL GUZMAN at 07/30/2017 13:42 Imaging: Discussed imaging studies w/ weight caller Radiologist Differential Diagnosis: Differential diagnosis considered for altered mental status including but not limited to ischemic stroke, intracranial bleed, hypoglycemia, infectious process , electrolyte abnormality, head injury and intoxicants. Consult/Admit Bed Type: [facility] 1347, [place] 1426 Critical Care Time: Critical care time spent by me, Dr. Guzman, exclusively with the care of this patient was 40 minutes, exclusive of PA or DEBATE DIRECTOR time and exclusive of separate procedures. The organ system at risk was neurologic and pulmonary, and I ordered multiple diagnostics, stroke alert, consultation with hospitalist and 2 neurologists, supplemental oxygen to stabilize the patient and prevent worsening of the patient's condition. - Data Points Laboratory Results: Laboratory Results 07/30/17 13:25 07/30/17 13:25 07/30/17 07/30/17 07/30/17 14:25 13:32 13:26 WBC RBC Hgb POC Hgb Hct POC Hct MCV MCH MCHC RDW Plt Count MPV Neut % (Auto) Lymph % (Auto) [place] % (Auto) Eos % (Auto) Baso % (Auto) Nucleat RBC Rel Count Absolute Neuts (auto) Absolute Lymphs (auto) Absolute Monos (auto) Absolute Eos (auto) Absolute Basos (auto) Absolute Nucleated RBC Immature Gran % Immature Gran # PT INR POC Sodium Sodium POC Potassium Potassium POC Chloride Chloride Carbon Dioxide Anion Gap POC BUN BUN Creatinine POC Creatinine Estimated GFR Glucose POC Glucose Hemoglobin A1c 9.2 % H D % (4.0-6.0) Estim Average Glucose 217 mg/dL H mg/dL (68-126) Calcium Total Bilirubin 0.6 mg/dL mg/dL (0.1-1.4) Conjugated Bilirubin 0.6 mg/dL H mg/dL (0.0-0.5) Unconjugated Bilirubin 0.0 mg/dL mg/dL (0.0-1.1) AST 15 IU/L IU/L (14-46) ALT 27 IU/L IU/L (9-52) Alkaline Phosphatase 236 IU/L H IU/L (38-126) Ammonia Cancelled Troponin I NT-Pro-B Natriuret Pep 64724 pg/mL H pg/mL (0-125) Total Protein 7.1 g/dL g/dL (6.3-8.2) Albumin 3.8 g/dL g/dL (3.5-5.0) TSH 3.460 uIU/mL uIU/mL (0.465-4.680) Levetiracetam Pending 07/30/17 07/30/17 07/30/17 13:25 13:25 13:25 WBC 4.50 10^3/uL 10^3/uL (3.80-9.50) RBC 3.34 10^6/uL L 10^6/uL (4.18-5.33) Hgb 9.7 g/dL L g/dL (12.6-16.3) POC Hgb Hct 30.4 % L % (38.0-47.0) POC Hct MCV 91.0 fL fL (81.5-99.8) MCH 29.0 pg pg (27.9-34.1) MCHC 31.9 g/dL L g/dL (32.4-36.7) RDW 14.1 % % (11.5-15.2) Plt Count 198 10^3/uL 10^3/uL (150-400) MPV 10.1 fL fL (8.7-11.7) Neut % (Auto) 57.9 % % (39.3-74.2) Lymph % (Auto) 27.1 % % (15.0-45.0) [place] % (Auto) 10.2 % % (4.5-13.0) Eos % (Auto) 3.3 % % (0.6-7.6) Baso % (Auto) 1.3 % % (0.3-1.7) Nucleat RBC Rel Count 0.0 % % (0.0-0.2) Absolute Neuts (auto) 2.60 10^3/uL 10^3/uL (1.70-6.50) Absolute Lymphs (auto) 1.22 10^3/uL 10^3/uL (1.00-3.00) Absolute Monos (auto) 0.46 10^3/uL 10^3/uL (0.30-0.80) Absolute Eos (auto) 0.15 10^3/uL 10^3/uL (0.03-0.40) Absolute Basos (auto) 0.06 10^3/uL 10^3/uL (0.02-0.10) Absolute Nucleated RBC 0.00 10^3/uL 10^3/uL (0-0.01) Immature Gran % 0.2 % % (0.0-1.1) Immature Gran # 0.01 10^3/uL 10^3/uL (0.00-0.10) PT 13.4 SEC SEC (12.0-15.0) INR 1.00 (0.83-1.16) POC Sodium Sodium 138 mEq/L mEq/L (135-145) POC Potassium Potassium 5.2 mEq/L mEq/L (3.5-5.2) POC Chloride Chloride 95 mEq/L L mEq/L (97-110) Carbon Dioxide 29 mEq/l mEq/l (22-31) Anion Gap 14 mEq/L mEq/L (8-16) POC BUN BUN 57 mg/dL H mg/dL (7-23) Creatinine 8.2 mg/dL H* mg/dL (0.6-1.0) POC Creatinine Estimated GFR 5 Glucose 172 mg/dL H mg/dL (70-100) POC Glucose Hemoglobin A1c Estim Average Glucose Calcium 9.3 mg/dL mg/dL (8.5-10.4) Total Bilirubin Conjugated Bilirubin Unconjugated Bilirubin AST ALT Alkaline Phosphatase Ammonia Troponin I 0.164 ng/mL H ng/mL (0.000-0.034) NT-Pro-B Natriuret Pep Total Protein Albumin TSH Levetiracetam 07/30/17 13:20 WBC RBC Hgb POC Hgb 10.5 gm/dL L gm/dL (12.6-16.3) Hct POC Hct 31 % L % (38-47) MCV MCH MCHC RDW Plt Count MPV Neut % (Auto) Lymph % (Auto) [place] % (Auto) Eos % (Auto) Baso % (Auto) Nucleat RBC Rel Count Absolute Neuts (auto) Absolute Lymphs (auto) Absolute Monos (auto) Absolute Eos (auto) Absolute Basos (auto) Absolute Nucleated RBC Immature Gran % Immature Gran # PT INR POC Sodium 137 mEq/L mEq/L (135-145) Sodium POC Potassium 5.0 mEq/L mEq/L (3.3-5.0) Potassium POC Chloride 97 mEq/L mEq/L (97-110) Chloride Carbon Dioxide Anion Gap POC BUN 57 mg/dL H mg/dL (7-23) BUN Creatinine POC Creatinine 8.6 mg/dL H* mg/dL (0.6-1.0) Estimated GFR Glucose POC Glucose 183 mg/dL H mg/dL (70-100) Hemoglobin A1c Estim Average Glucose Calcium Total Bilirubin Conjugated Bilirubin Unconjugated Bilirubin AST ALT Alkaline Phosphatase Ammonia Troponin I NT-Pro-B Natriuret Pep Total Protein Albumin TSH Levetiracetam Medications Given: Insulin Human Lispro (Humalog Lispro) 0 unit SC TIDMEAL LANCE PRN Reason: Protocol Stop: 01/26/18 17:59 Last Admin: 07/30/17 18:38 Dose: 6 units Labetalol HCl (Trandate Injection) 10 mg IVP Q10M PRN PRN Reason: SBP>180 or DBP>120 Stop: 01/26/18 15:07 Last Admin: 07/30/17 15:57 Dose: 10 mg Sevelamer HCl (Renagel) 800 mg PO TIDMEAL LANCE Stop: 01/26/18 18:29 Last Admin: 07/30/17 18:40 Dose: Not Given Discontinued Medications Aspirin (Aspirin) 325 mg PO ONCE ONE Stop: 07/30/17 15:05 Last Admin: 07/30/17 15:58 Dose: 325 mg Furosemide (Lasix Injection) 100 mg IVP ONCE ONE Stop: 07/30/17 15:29 Last Admin: 07/30/17 15:58 Dose: 100 mg Point of Care Test Results: 07/30/17 13:20 POC Sodium 137 POC Potassium 5.0 POC Chloride 97 POC BUN 57 H POC Creatinine 8.6 H* POC Glucose 183 H Departure - Departure Disposition: [facility] In[facility] Acute Clinical Impression: Altered mental status Qualifiers: Altered mental status type: unspecified Qualified Code(s): R41.82 - Altered mental status, unspecified Pulmonary edema Qualifiers: Chronicity: acute Qualified Code(s): J81.0 - Acute pulmonary edema Condition: Serious
[2017-07-30 13:28] LABS: PLATELET COUNT 198 10^3/uL (150-400)
[2017-07-30] MEDS ORDERED: IOPAMIDOL (ISOVUE 370) 100 ML BTL IV ONE ×3 (13:44→17:49)
[2017-07-30 13:45] LABS: PROTIME(PATIENT) 13.4 SEC (12.0-15.0)
--- NOTE | 2017-07-30 13:50 | CPEKG ---
Heart Rate: 72 RR Interval: 833 P-R Interval: 132 QRSD Interval: 84 QT Interval: 452 QTC Interval: 495 P [place]: 28 QRS [place]: 68 T Wave [place]: 83 EKG Severity - BORDERLINE ECG - EKG Impression: SINUS RHYTHM EKG Impression: BORDERLINE PROLONGED QT INTERVAL Electronically Signed By: Marcos Crespo 30-Jul-2017 13:51:28
[2017-07-30] MEDS ORDERED: ALTEPLASE 2 MG VIAL IVP PRN (14:53)
[2017-07-30] MEDS ORDERED: HYDROCODONE/APAP 5/325 TAB PO PRN (14:55)
[2017-07-30] MEDS ORDERED: LOPERAMIDE HCL 2 MG CAP PO PRN (14:55)
[2017-07-30] MEDS ORDERED: SENNOSIDES/DOCUSATE SODIUM TAB PO PRN (14:55)
[2017-07-30] MEDS ORDERED: POLYETHYLENE GLYCOL 3350 17 GM PKT PO PRN (14:55)
[2017-07-30] MEDS ORDERED: ALBUTEROL 3 ML DEYVIAL IH PRN (14:55)
[2017-07-30] MEDS ORDERED: SODIUM POLYSTYRENE SULF 454 GM POWDER PO PRN (14:55)
[2017-07-30] MEDS ORDERED: BISACODYL 10 MG SUPP PR PRN (14:55)
[2017-07-30] MEDS ORDERED: ONDANSETRON DISINTEGRATING 4 MG TAB PO PRN (14:59)
[2017-07-30] MEDS ORDERED: ONDANSETRON 4 MG/2 ML VIAL IVP PRN (14:59)
[2017-07-30] MEDS ORDERED: ACETAMINOPHEN 325 MG TAB PO PRN (14:59)
[2017-07-30] MEDS ORDERED: ASPIRIN 325 MG TAB PO ONE (15:04)
[2017-07-30] MEDS ORDERED: LORazepam 2 MG/ML INJ IVP PRN (15:15)
[2017-07-30] MEDS ORDERED: FUROSEMIDE 100 MG/10 ML VIAL IVP ONE (15:28)
[2017-07-30] MEDS ORDERED: FUROSEMIDE 40 MG/4 ML VIAL ONE ×2 (15:43→15:56)
[2017-07-30] MEDS ORDERED: D50W 25 GM/50 ML SYR IVP PRN (15:44)
[2017-07-30] MEDS ORDERED: LABETALOL HCL 5 MG/ML 20 ML MDV ONE (15:56)
[2017-07-30] MEDS: LABETALOL HCL 5 MG/ML 20 ML MDV IVP PRN ×2 (15:57→18:45)
[2017-07-30] MEDS ORDERED: NON-FORMULARY NEW DRUG (Sevelamer Carbonate [Renvela] 800 MG) PO SCH (16:00)
--- NOTE | 2017-07-30 16:33 | GHP ---
[f rep st] HISTORY AND PHYSICAL DATE OF ADMISSION: 07/30/2017 CHIEF COMPLAINT: Altered mental status and hypoxia. HISTORY OF PRESENT ILLNESS: The patient is a 57-year-old female with a history of end-stage renal disease, dialysis dependent, as well as a history of seizure disorder, hypertension and diabetes, who presents to the emergency department via EMS after she was found at [facility] with altered mental status and oxygen saturation of 64% on room air. There was no witnessed seizure activity. The patient herself is a poor historian. She is awake and able to talk, but is not reliable and has slurred speech. She does endorse some shortness of breath and orthopnea. She denies chest pain. She is not sure when her last seizure was. She thinks she last had dialysis on Sunday. She denies fevers, chills, nausea, vomiting, or abdominal pain. In the emergency department, there was concern for focal right-sided weakness and a stroke alert was called. She was evaluated by [facility], who did not feel she warranted tPA as there was no clear lateralization of her symptoms to suggest large stroke. Her saturations on arrival were 85% on room air. Chest x-ray is consistent with pulmonary edema. She is also quite hypertensive. Nephrology and Neurology consults were obtained, and the patient is admitted to the intensive care unit for further management. PAST MEDICAL HISTORY: 1. End-stage renal disease on Sunday, Sunday, Sunday dialysis schedule, followed by Dr. Andrade at [facility]. 2. Insulin-dependent diabetes. 3. Seizure disorder, on . 4. 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 5. History of C difficile, treated in the past with fecal transplant. 6. Hypertension. 7. Depression. 8. Possible history of rheumatoid arthritis. 9. History of bilateral Charcot foot, status post right transmetatarsal amputation in 2014. 10. Chronic pain. 11. Anemia secondary to chronic kidney disease. PAST SURGICAL HISTORY: 1. Right foot transmetatarsal amputation in 2014. 2. Tubal ligation. 3. Dialysis. Left arm shunt in 2016. 4. Removal of a left subclavian dialysis catheter November 2016. 5. Removal of a right subclavian dialysis catheter in 2015 secondary to infection. MEDICATIONS: Please see [employer] for completed outpatient medication list. ALLERGIES: Meperidine, sulfa, and trimethoprim. FAMILY HISTORY: Positive for diabetes. SOCIAL HISTORY: The patient lives at [facility]. She denies drug or alcohol use. She has a remote history of tobacco abuse, but quit many years ago. REVIEW OF SYSTEMS: A 10-point review of systems was performed and was negative , except as per HPI. PHYSICAL EXAMINATION: CURRENT VITAL SIGNS: Temperature on arrival 36.7, blood pressure 202/98, heart rate 78, respiratory rate 15, she is 94% on 3 L. GENERAL : The patient is awake, alert to person and place. HEENT: Head is atraumatic , normocephalic. Pupils equal, round, and reactive to light. Extraocular muscles intact. Oropharynx is clear. Mucous membranes are moist. NECK: Supple. There is no JVD. She has a right EJ catheter in place. HEART: Has a regular rate and rhythm. LUNGS: Reveal bilateral crackles. ABDOMEN: Soft, nondistended, nontender, with normoactive bowel tones. EXTREMITIES: Without cyanosis, clubbing. Minimal edema. NEUROLOGIC: There may be some mild right facial droop, though this is improved when she smiles. Mild pronator drift on the right. She has bilateral lower extremity leg weakness proximally. Speech is delayed. LABORATORY DATA: CBC reveals white blood cell count of 4.5, hemoglobin 9.7. INR is 1. ABG is pending. Basic metabolic panel shows normal electrolytes, BUN 57, creatinine 8.2, blood sugar is 172. Troponins elevated at 0.164. LFTs are pending. NT proBNP is pending. Ammonia is pending. TSH is pending. IMAGING: EKG in the emergency department shows normal sinus rhythm with no ST- segment or T-wave changes suggestive of acute ischemia. Chest x-ray from the emergency department was personally reviewed and interpreted, shows diffuse patchy opacities suspicious for pulmonary edema. ASSESSMENT AND PLAN: The patient is a 57-year-old female who presents to the emergency department with altered mental status and hypoxemia. 1. Acute encephalopathy. Differential diagnosis includes ischemic stroke, postictal state from a seizure, hypoxemia or toxic metabolic etiologies. She is afebrile with a normal white count, so my suspicion for infection is low. CT head is negative for hemorrhage or stroke. No TpA per [facility]. CTA head and neck are pending. She received a full dose Aspirin. Will keep NPO until full speech evaluation. Discussed BP management with Neurology, treat SBP >180 with IV Labetalol. Will also send a urine drug screen, an ABG, ammonia level, TSH and levetiracetam (Keppra) level. Will continue her Keppra 500 mg daily, renally dosed. Will place her on seizure precautions with p.r.n. Ativan for recurrent seizure activity. Note she was recently transferred to the [facility] due to concern for status just 1 month ago. Await further recommendations from Neurology. 2. Acute hypoxemic respiratory failure. This is in the setting of pulmonary edema and volume overload. BNP is elevated though difficult to interpret with ESRD. I discussed the case with Nephrology, as she is due for dialysis today and needs volume removal. Will give 100 mg IV Lasix now while she is waiting for Nephrology consultation as she does report some urine output. An echocardiogram was performed in the ED and results are pending. 3. End-stage renal disease with volume overload, dialysis dependent. She is on a Sunday, Sunday, Sunday schedule. She says she was last dialyzed on Sunday. Nephrology is consulted. Further dialysis per Renal Service. 4. Diabetes mellitus. Blood sugar on arrival was 172. Will send an A1c. Continue Lantus (1/2 dose while NPO) along with sliding scale insulin for glycemic control. 5. Seizure disorder. Again, I am concerned for postictal state. Neurology consult is pending. Keppra level was sent. Will plan to continue current Keppra with p.r.n. Ativan, as above. 6. Hypertension. Consideration is given to permissive hypertension given the possibility of acute ischemic stroke. As per neurology recs, will treat for systolic blood pressure greater than 180. P.r.n. IV labetalol is ordered. Will hold her other antihypertensives, but continue her metoprolol at half dose once able to take po. 7. Elevated troponin. Also difficult to interpret with ESRD. Her EKG is nonischemic. She has not complained of chest pain. An echo is pending to evaluate her LV function in the setting of acute pulmonary edema. Will trend her troponin and monitor on telemetry. 8. Anemia of chronic kidney disease. Her hemoglobin is near baseline. No indictation for transfusion. Epo per the Renal Service. 9. Deep venous thrombosis prophylaxis. Heparin. 10. Code status. The patient is full code. 11. Disposition: The patient is admitted to inpatient status to the intensive care unit. I anticipate greater than 48 hours hospitalization for ongoing management of her acute hypoxemic respiratory failure as well as acute encephalopathy in the setting of possible acute ischemic stroke and/or seizure. TIME SPENT: A total of 60 minutes critical care time spent on this admission. /[id number]/MODL MTDD
--- NOTE | 2017-07-30 16:39 | ECHO ---
[email or web address] [address] [address] Main: [phone] Fax: Transthoracic Echocardiogram Name: ADRIEN TERRAZAS MR#: [id number] Study Date: 07/30/2017 Study Time: 02:56 PM Date of : 1960 Age: 57 year(s) Height: 157.5 cm (62 in.) Weight: 63.5 kg (140 lb.) BSA: 1.64 m2 Gender: Female Examination: Echo Indication: Image Quality: Adequate Contrast: Requested by: Marcos Crespo BP: / Heart Rate: Rhythm: Indication: Procedure Staff Mixing Machine Attendant: Richa Watson [facility] Reading Physician: Regis Michaud MD Requesting Provider: Conclusions: Normal size left ventricle. No LV hypertrophy. Normal global systolic LV function. EF is 64 %. No regional wall motion abnormality. Normal diastolic LV function. Normal size right ventricle. Normal RV function. The left atrium is moderately dilated. The right atrium is normal in size. The mitral valve is normal in appearance and function. Moderate mitral valve leaflet calcification is present. Mild mitral valve regurgitation is present. No mitral stenosis is present. The aortic valve is normal in appearance and function. There is no aortic valve regurgitation. No aortic valve stenosis is present. The tricuspid valve is normal in appearance and function. Mild to moderate tricuspid valve regurgitation. The pulmonary artery pressure is severely increased. Right ventricular systolic pressure measures 79mmHg. The pulmonic valve is normal in appearance and function. Mild pulmonic valve regurgitation is noted. Normal size aortic root measuring 2.4 cm. Normal size ascending aorta measuring 2.5 cm. There is no inspiratory collapse of the IVC. Measurements: Chambers Valvular Assessment AV/MV Valvular Assessment TV/PV Patient: ADRIEN TERRAZAS Study Date: 07/30/2017 Page 1 of 3 02:56 PM Normal Normal Normal Name Value Range Name Value Range Name Value Range Ao Alma (2D): 2.4 cm (1.4 cm-2.6 AV Vmax: 1.27 m/s (1 m/s-1.7 TR Vmax: 4.14 mm/s ( - ) cm) m/s) TR PGmax: 69 mmHg ( - ) IVSd (2D): 1.1 cm (0.6 cm-1.1 AV maxP mmHg ( - ) syst. PAP: 79 mmHg ( - ) cm) AV meanP mmHg ( - ) PV Vmax: 0.66 m/s (0.6 m/s-0.9 LVDd (2D): 4.9 cm (3.9 cm-5.3 LVOT Vmax: 0.86 m/s (0.7 m/s-1.1 m/s) cm) m/s) PV PGmax: 2 mmHg ( - ) LVDs (2D): 3.6 cm (2.1 cm-4 JACK (Vmax): 1.9 cm2 ( - ) cm) JACK (VTI): 2.3 cm ( - ) LVPWd (2D): 1.0 cm ( - ) MV E Vmax: 1.32 m/s ( - ) LVOTd 1.9 cm 1.9 cm mm MV A Vmax: 1.17 m/s ( - ) LVEF (BP): 64 % (>=55 %) MV E/A: 1.13 ( - ) RVDd(2D): 2.8 cm (1.9 cm-3.8 MV PHT: 0.056 s ( - ) cmmm) MVA (PHT): 3.9 s ( - ) Continued Measurements: Chambers Valvular Assessment AV/MV Valvular Assessment TV/PV Name Value Name Value Name Value LADs: 4.2 cm MV DecTime: 190 m/s CVP (est.): 10 mmHg LADs Lon.3 cm MV E/E' Septal: 25.10 LA Area: 20.8 cm2 MV E/E' Lateral: 24.20 LA Volume: 77 ml LA Volume Index: 47.0 ml/m2 RA Area: 16.5 cm2 Additional Vessels Name Value Ao Ascendin.5 cm Inferior Vena Cava: 1.8 cm Findings: Left Ventricle: Normal size left ventricle. No LV hypertrophy. Normal global systolic LV function. EF is 64 %. No regional wall motion abnormality. Normal diastolic LV function. Right Ventricle: Normal size right ventricle. Normal RV function. Left Atrium: The left atrium is moderately dilated. Right Atrium: The right atrium is normal in size. Mitral Valve: The mitral valve is normal in appearance and function. Moderate mitral valve leaflet calcification is present. Mild mitral valve regurgitation is present. No mitral stenosis is present. Aortic Valve: The aortic valve is normal in appearance and function. There is no aortic valve regurgitation. No aortic valve stenosis is present. Tricuspid Valve: The tricuspid valve is normal in appearance and function. Mild to moderate tricuspid valve regurgitation. The pulmonary artery pressure is severely increased. Right ventricular systolic pressure measures 79mmHg. Pulmonic Valve: The pulmonic valve is normal in appearance and function. Mild pulmonic valve regurgitation is noted. Aorta: The aorta is normal. Normal size aortic root measuring 2.4 cm. Normal size ascending aorta measuring 2.5 cm. IVC: Patient: ADRIEN TERRAZAS Study Date: 07/30/2017 Page 2 of 3 02:56 PM The IVC is normal sized. There is no inspiratory collapse of the IVC. Pericardium: Small pericardial effusion. No pleural effusion. Exam Comments: Hypermobile plaque on anterior MVL, suggest NURIA.. (No Signature Object) Patient: ADRIEN TERRAZAS Study Date: 07/30/2017 Page 3 of 3 02:56 PM [id number]
[2017-07-30] MEDS ORDERED: ACETAMINOPHEN 650 MG SUPP PR PRN (18:26)
[2017-07-30] MEDS: INSULIN LISPRO 100 UNIT/ML SC SCH (18:38)
[2017-07-30] MEDS: SEVELAMER HCL 800 MG TAB PO SCH (18:40)
--- NOTE | 2017-07-30 19:53 | GCON ---
[f rep st] CONSULTATION NEUROLOGY CONSULT DATE OF CONSULTATION: 07/30/2017 REFERRING PHYSICIAN: Kristine Powell MD CHIEF COMPLAINT: Altered mental status and hypoxia. HISTORY OF PRESENT ILLNESS: The patient is a very pleasant 57-year-old lady with end-stage renal disease who is dialysis dependent. She has a history of a seizure disorder, on renally dose Keppra 500 mg q.h.s., along with hypertension , diabetes, which has been inconsistently controlled from what I understand. She was transferred to [facility] ED from [facility] due to oxygen saturation of 64% on room air with altered mental status. There was no seizure activity. She is awake and alert and able to talk with no seizure activity. She does have some shortness of breath and orthopnea. There is a question of facial asymmetry. Therefore, a stroke alert was called. [facility] did not feel she was a candidate for tPA due to prominent toxic metabolic encephalopathy type symptomatology. Chest x-ray suggested pulmonary edema while vital signs showed hypertensive crisis type numbers with systolics over 200. She did not get dialyzed this morning. For past medical history, past surgical history, medications, allergies, family history, social history, please see Dr. Powell's H and P. PHYSICAL EXAM: VITAL SIGNS: Temperature 36.7, blood pressure 202/98, heart rate 78, respirations 15. She is needing supplemental oxygen. GENERAL: Patient is awake, alert, and pleasant. NEUROLOGIC: Cranial nerve exam: Speech is intermittently slurred but clear with effort. There is no clear-cut aphasia. Extraocular movements are full. Motor exam: No drift. No focal weakness I could detect. Face is symmetric. She is endorsing symmetric light touch throughout with some distal peripheral neuropathy type changes. IMPRESSION AND PLAN: 1. Acute mental status change. 2. Acute hypoxemia. 3. End-stage renal disease. 4. Chronic seizure disorder, stable. At this point, it appears she has a toxic metabolic type encephalopathy due to her multiple medical problems with some decompensation. She has multiple laboratory abnormalities including blood gases and hypoxemia being abnormal. Her BNP is quite elevated. She may be fluid overloaded, not entirely clear. I will defer to my colleagues in hospital medicine, critical care, and nephrology for further evaluation and management of her multiorgan dysfunction. Head CT without contrast shows no acute findings. CTAs of the head and neck are pending. We will follow up on the above. Otherwise, no further recommendations now. She has no focal findings on exam at this point.This appears to be more of global brain dysfunction related to underlying toxic metabolic systemic disorder. We will follow up on the above. seventy total minutes floor time reviewing extensive inpatient laboratory records, counseling the patient, and coordination of care. Thank you for this consultation. /[id number]/MODL MTDD
[2017-07-30] MEDS ORDERED: INSULIN GLARGINE 100 UNITS/ML UNIT SC SCH ×2 (21:00)
[2017-07-30] MEDS ORDERED: levETIRAcetam 500MG/NACL 100 ML IV SCH (21:00)
[2017-07-30] MEDS ORDERED: levETIRAcetam 500 MG TAB PO SCH (21:00)
[2017-07-30] MEDS ORDERED: NON-FORMULARY NEW DRUG (Simvastatin [Zocor] 20 MG) PO SCH (21:00)
[2017-07-30] MEDS: HEPARIN 5,000 UNIT/0.5 ML SYR SC SCH (21:11)
--- NOTE | 2017-07-31 08:27 | PDMN ---
Medical Necessity Medical necessity: Pt meets IP criteria per MD; est los >2 mn for eval/tx of acute hypoxemic respiratory failure & acute encephalopathy in the setting of possible acute ischemic stroke &/or seizure; admit to ICU for further workup/ monitoring, Neuro/Nephrology consults, med management & therapies; hx ESRD on dialysis, diabetes, seizures, endocarditis, Cdiff, HTN & anemia; per H&P & order 07/30/17
[2017-07-31] MEDS ORDERED: ASPIRIN RECTAL 300 MG SUPP PR SCH (09:00)
[2017-07-31] MEDS ORDERED: ASPIRIN EC 81 MG TAB PO SCH (09:00)
--- NOTE | 2017-07-31 09:55 | NEUROPROG ---
Assessment: 1. Acute mental status changes 2. Acute hypoxemia 3. Chronic renal failure, on hemodialysis 35 total minutes floor time; including review of the patient's extensive laboratory and imaging testing. The Keppra level is still pending The patient is getting dialyzed this morning with normalization of blood pressure. She has had improvement of level of consciousness with dialysis. She continues to fluctuate and be somewhat delirious. Overall, she best fits with a toxic metabolic type encephalopathy due to her underlying hypoxemia and other metabolic derangement. She does not have any focality to her presentation her history. There was no history of seizure. No history to suggest acute neurovascular syndrome. At this point, although the CTA was poor quality, I do not think we need to pursue now as there is no strong history to suggest an acute neurovascular syndrome. If there is additional history or change in her clinical course, we certainly can pursue an acute stroke workup as indicated, including angiography if needed. I recommend continuing her renal dose Keppra 500 mg at bedtime as prescribed. If there are any questions about her Keppra level when it returns, please do not hesitate to call the neurology service with any questions. We will continue to follow this very pleasant patient p.r.n. Please do not hesitate to call with any questions or changes in neurologic status with this patient. Thank you for the consultation. Subjective: Patient is more alert and awake with hemodialysis Objective: Vital Signs Temp Pulse Resp BP Pulse Ox 36.6 C 72 14 151/62 H 99 07/30/17 17:30 07/31/17 06:00 07/31/17 06:00 07/31/17 06:00 07/31/17 06:00 Laboratory Results 07/31/17 05:00 07/31/17 05:00 07/30/17 07/31/17 08/01/17 05:59 05:59 05:59 Intake Total 220 Output Total 200 Balance 20 PT 13.4 SEC (12.0-15.0) 07/30/17 13:25 INR 1.00 (0.83-1.16) 07/30/17 13:25 Awake, alert pleasant Mild delirium No pronator drift No focal weakness Minimal myoclonus Allergies/Adverse Reactions: meperidine HCl [From Demerol] Allergy (Intermediate, Verified 05/29/17 09:42) PARANOID, HALLUCINATIONS sulfamethoxazole [From Bactrim] Allergy (Verified 05/29/17 09:42) trimethoprim [From Bactrim] Allergy (Verified 05/29/17 09:42)
--- NOTE | 2017-07-31 10:36 | PDCONSULT ---
F[employer] Note: Assessment/Plan: ESRD: on HD MWF. - Will do HD today off-schedule. - Will plan on HD again tomorrow per routine. Hypervolemia: will modulate on HD. HTN: will help modulate with fluid removal on HD, BP already improving on HD. ANTHONY: will restart sevelamer when she is taking PO. Anemia: will give epo. Thank you for the interesting consult. Nephrology will continue to follow, please call if you have any additional questions or concerns. H & P Stated Complaint: AMS Time Seen by Provider: 07/30/17 13:08 HPI/ROS: HPI: Ms. Reynoso is a 57 yo F with h/o ESRD on HD MWF and also has problems with multiple admissions for various metabolic issues including DKA that cause altered mental status. Pt was admitted yesterday from [facility] for having altered mental status and hypoxia. She last dialyzed on Sunday per routine. She was noted to need 2L O2 via NC and CXR with some pulmonary edema. She is more awake and alert today but still not fully oriented. She denies any pain or dyspnea. She is on HD and tolerating fine. ROS: positive per HPI, rest of 10-point ROS negative - Personal History Tetanus Vaccine Date: last 10 years - Medical/Surgical History Hx Asthma: No Hx Chronic Respiratory Disease: No Hx Diabetes: Yes Hx Cardiac Disease: No Hx Renal Disease: Yes Hx Cirrhosis: No Hx Alcoholism: No Hx HIV/AIDS: No Hx Splenectomy or Spleen Trauma: No Other PMH: DM 2, anemia, ESRD, Cdiff, influenza, HTN, LLE metetarsal amputation - Family History Significant Family History: No pertinent family hx - Social History Smoking Status: Former smoker - Physical Exam Exam: General: awake, alert, oriented to self, no acute distress Eyes: EOMI, PERRL OP: Clear, MMM Neck: supple, no thyromegaly CV: RRR, +trace edema BLE Resp: CTA bilat, nonlabored respirations on NC Abd: soft, NT/ND neuro: CN II-XII grossly intact, no asterixis Skin: C/D/I, no rash Access: LUE AVF cannulated Constitutional: Initial Vital Signs Temperature (C) 36.7 C 07/30/17 13:08 Heart Rate 74 07/30/17 13:08 Respiratory Rate 14 07/30/17 13:08 Blood Pressure 192/87 H 07/30/17 13:08 O2 Sat (%) 85 L 07/30/17 13:08 O2 Delivery Mode Nasal Cannula O2 (L/minute) 3 Allergies/Adverse Reactions: meperidine HCl [From Demerol] Allergy (Intermediate, Verified 05/29/17 09:42) PARANOID, HALLUCINATIONS sulfamethoxazole [From Bactrim] Allergy (Verified 05/29/17 09:42) trimethoprim [From Bactrim] Allergy (Verified 05/29/17 09:42) Home Medications: Medication Instructions Recorded Acetaminophen [Tylenol 325mg (*)] 650 mg PO Q8 PRN 09/20/16 Aspirin EC [Aspirin EC 81 mg (*)] 81 mg PO DAILY 09/20/16 Famotidine [Pepcid 20 MG (*)] 20 mg PO DAILY 09/20/16 Ferrous Sulfate [Ferrous Sulf 325 325 mg PO DAILY 09/20/16 MG (*)] Herbals/Supplements -Info Only 1 ea PO DAILY 09/20/16 Insulin Lispro [Humalog] 4 unit SQ TID 09/20/16 Losartan Potassium [Cozaar] 100 mg PO HS 09/20/16 Polyethylene Glycol 3350 [Miralax 17 gm PO DAILY PRN 09/20/16 17 gm (*)] Pregabalin [Lyrica 50mg (*)] 50 mg PO HS 09/20/16 Simvastatin [Zocor] 20 mg PO HS 09/20/16 levETIRAcetam [Keppra 500 mg (*)] 500 mg PO HS 09/20/16 Acetaminophen [Tylenol ES 500 mg 1,000 mg PO MWF@12 12/15/16 (*)] Escitalopram Oxalate [Lexapro 10 10 mg PO DAILY 12/15/16 MG] Hydrocodone/Acetaminophen [[place]vanhoe 1 tab PO Q4HRS PRN 12/15/16 5/325 (*)] Insulin Glargine,Hum.rec.anlog 6 unit SQ BID 12/15/16 [Lantus Solostar] Sodium Polystyrene Sulfonate 15 gm PO DAILY PRN 02/27/17 Promethazine HCl [Phenergan 25mg 25 mg PO Q4HRS PRN 04/12/17 (*)] Bisacodyl [Dulcolax] 10 mg RC DAILY PRN 05/29/17 Loperamide HCl [Imodium 2 mg (*)] 4 mg PO Q4HRS PRN 05/29/17 Metoprolol Tartrate [Lopressor 50 50 mg PO BID 05/29/17 mg (*)] Sennosides/Docusate Sodium 1 each PO BID PRN 05/29/17 [Senna-S Tablet] Albuterol [Proventil Neb] 3 ml IH Q6H PRN 07/30/17 Hydrocodone/Acetaminophen [[place]vanhoe 2 each PO Q4H PRN 07/30/17 5/325 (*)] Sevelamer Carbonate [Renvela] 800 mg PO TID 07/30/17 amLODIPine BESYLATE [Norvasc 2.5 2.5 mg PO HS 07/30/17 mg (*)] Lab and Imaging 07/31/17 05:00 07/31/17 05:00 WBC 4.61 10^3/uL (3.80-9.50) 07/31/17 05:00 RBC 2.71 10^6/uL (4.18-5.33) L 07/31/17 05:00 Hgb 7.9 g/dL (12.6-16.3) L 07/31/17 05:00 POC Hgb 10.5 gm/dL (12.6-16.3) L 07/30/17 13:20 Hct 24.6 % (38.0-47.0) L 07/31/17 05:00 POC Hct 31 % (38-47) L 07/30/17 13:20 MCV 90.8 fL (81.5-99.8) 07/31/17 05:00 MCH 29.2 pg (27.9-34.1) 07/31/17 05:00 MCHC 32.1 g/dL (32.4-36.7) L 07/31/17 05:00 RDW 14.6 % (11.5-15.2) 07/31/17 05:00 Plt Count 139 10^3/uL (150-400) L D 07/31/17 05:00 MPV 10.1 fL (8.7-11.7) 07/30/17 13:25 Neut % (Auto) 57.9 % (39.3-74.2) 07/30/17 13:25 Lymph % (Auto) 27.1 % (15.0-45.0) 07/30/17 13:25 [place] % (Auto) 10.2 % (4.5-13.0) 07/30/17 13:25 Eos % (Auto) 3.3 % (0.6-7.6) 07/30/17 13:25 Baso % (Auto) 1.3 % (0.3-1.7) 07/30/17 13:25 Nucleat RBC Rel Count 0.0 % (0.0-0.2) 07/30/17 13:25 Absolute Neuts (auto) 2.60 10^3/uL (1.70-6.50) 07/30/17 13:25 Absolute Lymphs (auto) 1.22 10^3/uL (1.00-3.00) 07/30/17 13:25 Absolute Monos (auto) 0.46 10^3/uL (0.30-0.80) 07/30/17 13:25 Absolute Eos (auto) 0.15 10^3/uL (0.03-0.40) 07/30/17 13:25 Absolute Basos (auto) 0.06 10^3/uL (0.02-0.10) 07/30/17 13:25 Absolute Nucleated RBC 0.00 10^3/uL (0-0.01) 07/30/17 13:25 Immature Gran % 0.2 % (0.0-1.1) 07/30/17 13:25 Immature Gran # 0.01 10^3/uL (0.00-0.10) 07/30/17 13:25 PT 13.4 SEC (12.0-15.0) 07/30/17 13:25 INR 1.00 (0.83-1.16) 07/30/17 13:25 Puncture Site RIGHT RADIAL 07/30/17 15:55 Patient Temperature 37.0 DEGREES 07/30/17 15:55 pCO2 49 mmHg (34-38) H 07/30/17 15:55 pO2 42 mmHg (65-75) L 07/30/17 15:55 Total CO2 28 mEq/L (23-27) H 07/30/17 15:55 ABG pH 7.35 (7.35-7.45) 07/30/17 15:55 ABG HCO3 27 mEq/L (22-26) H 07/30/17 15:55 ABG O2 Saturation 69 % (92-95) L 07/30/17 15:55 ABG Base Excess 1.3 mEq/L (-2.5-2.5) 07/30/17 15:55 Total O2 Concentration 2.0 LITERS 07/30/17 15:55 POC Sodium 137 mEq/L (135-145) 07/30/17 13:20 Sodium 138 mEq/L (135-145) 07/31/17 05:00 POC Potassium 5.0 mEq/L (3.3-5.0) 07/30/17 13:20 Potassium 4.6 mEq/L (3.5-5.2) 07/31/17 05:00 POC Chloride 97 mEq/L (97-110) 07/30/17 13:20 Chloride 100 mEq/L (97-110) 07/31/17 05:00 Carbon Dioxide 27 mEq/l (22-31) 07/31/17 05:00 Anion Gap 11 mEq/L (8-16) 07/31/17 05:00 POC BUN 57 mg/dL (7-23) H 07/30/17 13:20 BUN 63 mg/dL (7-23) H 07/31/17 05:00 Creatinine 9.2 mg/dL (0.6-1.0) H* 07/31/17 05:00 POC Creatinine 8.6 mg/dL (0.6-1.0) H* 07/30/17 13:20 Estimated GFR 4 07/31/17 05:00 Glucose 66 mg/dL (70-100) L 07/31/17 05:00 POC Glucose 171 mg/dL (70-100) H 07/31/17 07:40 Hemoglobin A1c 9.2 % (4.0-6.0) H D 07/30/17 13:32 Estim Average Glucose 217 mg/dL (68-126) H 07/30/17 13:32 Calcium 8.7 mg/dL (8.5-10.4) 07/31/17 05:00 Phosphorus 5.9 mg/dL (2.5-4.5) H 07/31/17 05:00 Total Bilirubin 0.4 mg/dL (0.1-1.4) 07/31/17 05:00 Conjugated Bilirubin 0.4 mg/dL (0.0-0.5) 07/31/17 05:00 Unconjugated Bilirubin 0.0 mg/dL (0.0-1.1) 07/31/17 05:00 AST 11 IU/L (14-46) L 07/31/17 05:00 ALT 24 IU/L (9-52) 07/31/17 05:00 Alkaline Phosphatase 191 IU/L (38-126) H 07/31/17 05:00 Ammonia < 9.0 uMOL/L (9.0-30.0) L 07/30/17 15:39 Troponin I 0.013 ng/mL (0.000-0.034) 07/31/17 05:00 NT-Pro-B Natriuret Pep 47833 pg/mL (0-125) H 07/30/17 13:26 Total Protein 6.1 g/dL (6.3-8.2) L 07/31/17 05:00 Albumin 3.1 g/dL (3.5-5.0) L 07/31/17 05:00 Triglycerides 87 mg/dL (35-135) 07/31/17 05:00 Cholesterol 114 mg/dL (140-220) L 07/31/17 05:00 Cholesterol Risk Factr 0.4 (0.2-1.0) 07/31/17 05:00 LDL Cholesterol, Calc 38 mg/dL (80-100) L 07/31/17 05:00 LDL Risk Factor 0.4 (0.2-1.0) 07/31/17 05:00 VLDL Cholesterol 17 mg/dL (8-25) 07/31/17 05:00 Non-HDL Cholesterol 55 mg/dL (90-129) L 07/31/17 05:00 HDL Cholesterol 59 mg/dL (40-85) 07/31/17 05:00 LDL/HDL Ratio 0.64 RATIO (1.00-3.22) L 07/31/17 05:00 Cholesterol/HDL Ratio 1.93 RATIO (1.00-4.44) 07/31/17 05:00 TSH 3.460 uIU/mL (0.465-4.680) 07/30/17 13:26
[2017-07-31] MEDS: HEPARIN 5,000 UNIT/0.5 ML SYR SC SCH ×4 (10:56→20:26)
[2017-07-31] MEDS ORDERED: EPOETIN ALFA 10,000 UNIT/ML VIAL SC SCH (11:00)
[2017-07-31] MEDS: INSULIN LISPRO 100 UNIT/ML SC SCH ×4 (11:01→18:22)
--- NOTE | 2017-07-31 11:07 | HOSPPROG ---
Hospitalist Progress Note Assessment/Plan: # acute encephalopathy - most likely related to hypoxia - appreciate neuro's assistance - no further w/u at this point # pulmonary edema - unclear if d/t uncontrolled htn - volume removal with HD # acute hypoxic resp failure - d/t pulm edema; improving # ESRD on HD - cont HD per renal - sevelamer # DM - follow glucs now that taking PO again # seizure disorder - keppra # htn - cont metop, amlodipine, losartan # depr - lexapro # bilat Charcot foot # anemia of CKD Subjective: getting HD; no pain Objective: Vital Signs Temp Pulse Resp BP Pulse Ox 36.6 C 77 16 128/62 H 100 07/31/17 10:00 07/31/17 10:00 07/31/17 10:00 07/31/17 10:00 07/31/17 10:00 Laboratory Results 07/31/17 05:00 07/31/17 05:00 07/30/17 07/31/17 08/01/17 05:59 05:59 05:59 Intake Total 220 Output Total 200 Balance 20 PT 13.4 SEC (12.0-15.0) 07/30/17 13:25 INR 1.00 (0.83-1.16) 07/30/17 13:25 chart reviewed discussed with Dr Carlito Purvis [facility] reviewed - Physical Exam Constitutional: chronically ill appearing Cardiovascular: regular rate and rhythym, no murmur, rub, or gallop Respiratory: no respiratory distress, inspiratory crackles (mild), No reduced air movement, No bronchial breath sounds, No rhonchi Gastrointestinal: normoactive bowel sounds, soft, non-tender abdomen ICD10 Worksheet Patient Problems: Problems Problem Status Onset Uremia Acute Influenza Acute Altered mental status Acute Pulmonary edema Acute Clostridium difficile infection Acute ~03/01/17 Dehydration Acute C. difficile diarrhea Acute ~12/16/16 Diabetic ketoacidosis Acute C. difficile diarrhea Acute ~07/29/16 ESRD (end stage renal disease) Acute
[2017-07-31] MEDS: SEVELAMER HCL 800 MG TAB PO SCH ×2 (13:50→18:26)
--- NOTE | 2017-07-31 13:51 | ASMTCMCOM ---
CM Note CM Note Notes: 57yr old female admitted from [facility] for AMS, Hypoxemia, end stage renal dis. Patient has a Hx of DM, SZ diso, endocarditis, HTN, Depression, Charcot foot, Chronic pain, Anemia. Stroke was ruled out. She will return to [facility] on discharge. Date Signed: 07/31/2017 01:50 PM Electronically Signed By:Loraine Valera LCSW
--- NOTE | 2017-07-31 15:06 | GCON ---
[f rep st] CONSULTATION CRITICAL CARE CONSULT DATE OF CONSULTATION: 07/31/2017 HISTORY OF PRESENT ILLNESS: This patient is a 57-year-old female with a history of end-stage renal d isease, diabetes, seizure disorder, who was admitted overnight with mental status changes and hypoxem ia. A chest x-ray showed pulmonary edema. She apparently has been making her dialysis appointments, although the exact amount of fluid removal is uncertain to me. A stroke alert was [facility] because of her mental status changes. Neurology was involved and decided not to gi ve tPA. This was discussed again today with a followup neuro consult, and this was thought to be tox ic metabolic encephalopathy, probably related to her underlying hypoxemia. She started dialysis toda y, which is when I saw her in mid stream, and she seemed to be feeling much better, and her oxygen sa turation was 100% on minimal nasal cannula oxygen. She apparently tested positive for flu not too lo ng ago and did say that she had a cough, though this was not observed in the hospital. There was no purulent sputum. No fevers and no white count. REVIEW OF SYSTEMS: Otherwise negative. PAST MEDICAL HISTORY: Includes: 1. End-stage renal disease. 2. Diabetes. 3. Seizure disorder. 4. Endocarditis. 5. C diff colitis. 6. Hypertension. 7. Depression. 8. Charcot joint. 9. Anemia of chronic disease. 10. Possible rheumatoid arthritis. PAST SURGICAL HISTORY: Includes right transmetatarsal amputation and multiple catheter issues. SOCIAL HISTORY: She has a remote history of smoking, but none now. No alcohol or IV drug use. FAMILY HISTORY: Includes diabetes. CURRENT MEDICATIONS: Include albuterol, Norvasc, aspirin, Lipitor, Dulcolax, Procrit, Lexapro, Pepci d, iron, Lantus, Humalog, labetalol, Keppra, Ativan p.r.n., Cozaar, Lopressor, morphine, Zofran, Ale LAX, Lyrica, Senokot, Renagel. PHYSICAL EXAMINATION: VITAL SIGNS: She was afebrile. Blood pressure was 183/67, heart rate 73, res piration 14, oxygen saturation 98% on 3 L. She was awake and alert, in no apparent distress. Able t o speak in full sentences without using accessory muscles for breathing. HEENT: Pupils equally roun d and reactive to light. Nonicteric and noninjected. Mucous membranes are moist, without erythema o r exudate. NECK: Supple, without adenopathy or jugular vein distention. LUNGS: Breath sounds were clear to auscultation for me. No wheezing. HEART: Regular rate and rhythm, without obvious murmur s, rubs, or gallops. ABDOMEN: Soft, nontender, nondistended, without hepatosplenomegaly. EXTREMITI ES: No clubbing, cyanosis, or edema. LABORATORY DATA: Includes a white count of 4.6, hematocrit of 25, platelets 139. Sodium was 138, po tassium 4.6, chloride 100, bicarb 27, BUN 63, creatinine 9.2, glucose 171. LFTs were unremarkable, s ave for an alkaline phosphatase of 191. Troponin was negative x2. Chest x-ray showed pulmonary candelario a. ASSESSMENT/PLAN: 1. Mental status changes, probably related to her underlying hypoxemia. 2. Hypoxia with respiratory failure. It is probably pulmonary edema in this situation. I do not th ink this is flu or pneumonia at this time, and she should get better with dialysis alone. If she marty ls to improve, we could also look at things like procalcitonin and cultures, but I do not think antib iotics are indicated at this time. We should titrate down her oxygen as needed. 3. End-stage renal disease. She is getting dialyzed right now. 4. Diabetes, being managed by the hospitalist service. I expect a short hospital stay. /[id number]/MODL
[2017-07-31] MEDS ORDERED: PROMETHAZINE HCL 25 MG/ML INJ IVP PRN (18:55)
[2017-07-31] MEDS ORDERED: INSULIN REGULAR HUMAN 100 UNIT/ML UNIT SC ONE ×2 (20:15→23:30)
[2017-07-31] MEDS: ATORVASTATIN CALCIUM 10 MG TAB PO SCH (20:18)
[2017-07-31] MEDS: METOPROLOL TARTRATE 50 MG TAB PO SCH (20:18)
[2017-07-31] MEDS: LOSARTAN POTASSIUM 50 MG TAB PO SCH (20:18)
[2017-07-31] MEDS: PREGABALIN 50 MG CAP PO SCH (20:21)
[2017-07-31] MEDS: levETIRAcetam 500 MG TAB PO SCH (20:21)
[2017-07-31] MEDS ORDERED: NON-FORMULARY NEW DRUG (Losartan Potassium [Cozaar] 100 MG) PO SCH (21:00)
[2017-07-31] MEDS: INSULIN GLARGINE 100 UNITS/ML UNIT SC SCH (23:08)
[2017-08-01] MEDS: HEPARIN 5,000 UNIT/0.5 ML SYR SC SCH ×3 (05:13→21:04)
[2017-08-01] MEDS: INSULIN LISPRO 100 UNIT/ML SC SCH ×3 (07:45→16:34)
[2017-08-01] MEDS: INSULIN GLARGINE 100 UNITS/ML UNIT SC SCH ×2 (09:10→20:50)
--- NOTE | 2017-08-01 09:55 | HOSPPROG ---
Hospitalist Progress Note Assessment/Plan: # acute encephalopathy - most likely related to hypoxia - appreciate neuro's assistance - no further w/u at this point - unclear baseline - will try to determine today # pulmonary edema - unclear if d/t uncontrolled htn - volume removal with HD # acute hypoxic resp failure - d/t pulm edema; improving # ESRD on HD - cont HD per renal - sevelamer # DM - very hyperglycemic yesterday, now much better controlled - cont home glargine, SSI lispro # seizure disorder - keppra # htn - cont metop, amlodipine, losartan # depr - lexapro # bilat Charcot foot # anemia of CKD Subjective: getting HD; no pain Objective: Vital Signs Temp Pulse Resp BP Pulse Ox 37.1 C 77 16 177/92 H 100 08/01/17 07:46 08/01/17 09:10 08/01/17 07:46 08/01/17 09:10 08/01/17 07:46 Laboratory Results 08/01/17 04:10 08/01/17 04:10 07/31/17 08/01/17 08/02/17 05:59 05:59 05:59 Intake Total 220 900 Output Total 200 0 Balance 20 900 PT 13.4 SEC (12.0-15.0) 07/30/17 13:25 INR 1.00 (0.83-1.16) 07/30/17 13:25 - Physical Exam Constitutional: chronically ill appearing, other (L IJ) Cardiovascular: regular rate and rhythym, no murmur, rub, or gallop Respiratory: no respiratory distress, no rales or rhonchi, clear to auscultation Gastrointestinal: normoactive bowel sounds, soft, non-tender abdomen, no palpable masses ICD10 Worksheet Patient Problems: Problems Problem Status Onset Uremia Acute Influenza Acute Altered mental status Acute Pulmonary edema Acute Clostridium difficile infection Acute ~03/01/17 Dehydration Acute C. difficile diarrhea Acute ~12/16/16 Diabetic ketoacidosis Acute C. difficile diarrhea Acute ~07/29/16 ESRD (end stage renal disease) Acute
[2017-08-01] MEDS: SEVELAMER HCL 800 MG TAB PO SCH ×3 (11:14→16:35)
[2017-08-01] MEDS: METOPROLOL TARTRATE 50 MG TAB PO SCH ×2 (11:22→20:50)
[2017-08-01] MEDS: ESCITALOPRAM OXALATE 10 MG TAB PO SCH (11:23)
[2017-08-01] MEDS: FAMOTIDINE 20 MG TAB PO SCH (11:23)
[2017-08-01] MEDS: FERROUS SULFATE 325 MG TAB PO SCH (11:23)
[2017-08-01] MEDS: ASPIRIN EC 325 MG TAB PO SCH (11:23)
--- NOTE | 2017-08-01 18:04 | SOAPPROG ---
SOAP Progress Note Assessment/Plan: Assessment: 1. Acute hypoxemic respiratory failure. Appears due to volume overload. Likely lost muscle weight. Improved after 6 L UF. 2. ESRD. HD next on Sunday per MWF schedule. 3. AMS. Improving. CT neg for bleed/CVA. Suspect related to hypoxia. She gets very confused with minor insults due to microvascular/white matter brain disease. 4.IDDM. Brittle BS control which is her baseline. Plan: 08/01/17 18:02 Subjective: No complaints. Had dialysis earlier today. Had 3 L UF yesterday, another 3 L today. Off O2 now. Objective: Vital Signs Temp Pulse Resp BP Pulse Ox 36.6 C 91 18 164/75 H 96 08/01/17 16:00 08/01/17 16:00 08/01/17 16:00 08/01/17 16:00 08/01/17 16:00 Laboratory Results 08/01/17 04:10 08/01/17 04:10 07/31/17 08/01/17 08/02/17 05:59 05:59 05:59 Intake Total 220 900 450 Output Total 200 0 Balance 20 900 450 PT 13.4 SEC (12.0-15.0) 07/30/17 13:25 INR 1.00 (0.83-1.16) 07/30/17 13:25 Lethargic, but answering questions, NAD RRR, no m/g/r CTAB Abdom soft, nontender No edema ICD10 Worksheet Patient Problems: Problems Problem Status Onset Uremia Acute Influenza Acute Altered mental status Acute Pulmonary edema Acute Clostridium difficile infection Acute ~03/01/17 Dehydration Acute C. difficile diarrhea Acute ~12/16/16 Diabetic ketoacidosis Acute C. difficile diarrhea Acute ~07/29/16 ESRD (end stage renal disease) Acute
[2017-08-01] MEDS: ATORVASTATIN CALCIUM 10 MG TAB PO SCH (20:50)
[2017-08-01] MEDS: LOSARTAN POTASSIUM 50 MG TAB PO SCH (20:50)
[2017-08-01] MEDS: PREGABALIN 50 MG CAP PO SCH (20:51)
[2017-08-01] MEDS: levETIRAcetam 500 MG TAB PO SCH (20:51)
[2017-08-02] MEDS: HEPARIN 5,000 UNIT/0.5 ML SYR SC SCH ×3 (05:13→22:35)
[2017-08-02] MEDS: INSULIN LISPRO 100 UNIT/ML SC SCH ×3 (09:42→16:58)
[2017-08-02] MEDS: ESCITALOPRAM OXALATE 10 MG TAB PO SCH (09:43)
[2017-08-02] MEDS: SEVELAMER HCL 800 MG TAB PO SCH ×2 (09:43→12:08)
[2017-08-02] MEDS: FAMOTIDINE 20 MG TAB PO SCH (09:43)
[2017-08-02] MEDS: ASPIRIN EC 325 MG TAB PO SCH (09:43)
[2017-08-02] MEDS: METOPROLOL TARTRATE 50 MG TAB PO SCH ×2 (09:43→22:25)
[2017-08-02] MEDS: FERROUS SULFATE 325 MG TAB PO SCH (09:44)
[2017-08-02] MEDS: INSULIN GLARGINE 100 UNITS/ML UNIT SC SCH ×2 (10:15→22:42)
--- NOTE | 2017-08-02 10:20 | HOSPPROG ---
Hospitalist Progress Note Assessment/Plan: 57F admitted with AMS d/t hypoxia. Hypoxia was d/t pulmonary edema. She has multiple medical problems. # acute encephalopathy - most likely related to hypoxia - appreciate neuro's assistance - no further w/u at this point - close to baseline but not there yet per # pulmonary edema - unclear precipitant; she had not been to HD the day of presentation - better with volume removal with HD - recheck CXR tomorrow am # acute hypoxic resp failure - d/t pulm edema; improving # ESRD on HD - cont HD per renal - sevelamer # DM1 - she is very brittle and difficult to control - cont home glargine, SSI lispro # seizure disorder - keppra # htn - cont metop, amlodipine, losartan # depr - lexapro # bilat Charcot foot # anemia of CKD # dispo - possibly tomorrow if mental status is better; she lives at [facility] Subjective: seen with her ; her mental status is better but not at baseline Objective: Vital Signs Temp Pulse Resp BP Pulse Ox 36.7 C 76 18 172/61 H 100 08/01/17 20:16 08/01/17 23:43 08/01/17 23:43 08/01/17 23:43 08/01/17 23:43 Laboratory Results 08/01/17 04:10 08/02/17 05:00 08/01/17 08/02/17 08/03/17 05:59 05:59 05:59 Intake Total 900 450 Output Total 0 Balance 900 450 PT 13.4 SEC (12.0-15.0) 07/30/17 13:25 INR 1.00 (0.83-1.16) 07/30/17 13:25 - Physical Exam Constitutional: chronically ill appearing Cardiovascular: regular rate and rhythym, no murmur, rub, or gallop Respiratory: no respiratory distress, no rales or rhonchi Gastrointestinal: normoactive bowel sounds, soft, non-tender abdomen, no palpable masses ICD10 Worksheet Patient Problems: Problems Problem Status Onset Uremia Acute Influenza Acute Altered mental status Acute Pulmonary edema Acute Clostridium difficile infection Acute ~03/01/17 Dehydration Acute C. difficile diarrhea Acute ~12/16/16 Diabetic ketoacidosis Acute C. difficile diarrhea Acute ~07/29/16 ESRD (end stage renal disease) Acute
--- NOTE | 2017-08-02 13:09 | SOAPPROG ---
SOAP Progress Note Assessment/Plan: Assessment: 1. Acute hypoxemic respiratory failure. Appears due to volume overload. Likely lost muscle weight. Improved after 6 L UF. Will UF less tomorrow. 2. ESRD. HD next tomorrow per MWF schedule. 3. AMS. Improving. CT neg for bleed/CVA. Suspect related to hypoxia, BS, BP fluctuations , lack of sleep. Does not appear to be having seizures. She gets very confused with minor insults due to microvascular/white matter brain disease. Rec transfer to floor to improve sleep. 4.IDDM. Brittle BS control which is her baseline. BS 56 this am. Reduce hs lantus slightly until eating better. Plan: 08/01/17 18:02 08/02/17 13:03 08/02/17 13:09 08/02/17 13:11 Subjective: Had a couple of staring spells this am while getting up to BR. No shaking. Recovered after replacing NC O2. She has no complaints. Just tired. Had HD again yesterday with another 3 L UF. Objective: Vital Signs Temp Pulse Resp BP Pulse Ox 36.9 C 76 18 136/58 H 96 08/02/17 08:00 08/02/17 09:43 08/02/17 08:00 08/02/17 12:00 08/02/17 12:00 Laboratory Results 08/01/17 04:10 08/02/17 05:00 08/01/17 08/02/17 08/03/17 05:59 05:59 05:59 Intake Total 900 450 Output Total 0 Balance 900 450 PT 13.4 SEC (12.0-15.0) 07/30/17 13:25 INR 1.00 (0.83-1.16) 07/30/17 13:25 Lethargic but easily arousable. Knows she is in hospital, thought it was [facility]. RRR, no m/g/r CTAB Abdom soft, nontender No edema LUE AVF with good thrill ICD10 Worksheet Patient Problems: Problems Problem Status Onset Uremia Acute Influenza Acute Altered mental status Acute Pulmonary edema Acute Clostridium difficile infection Acute ~03/01/17 Dehydration Acute C. difficile diarrhea Acute ~12/16/16 Diabetic ketoacidosis Acute C. difficile diarrhea Acute ~07/29/16 ESRD (end stage renal disease) Acute
--- NOTE | 2017-08-02 16:20 | NEUROPROG ---
Assessment: 1. Acute mental status changes 2. Acute hypoxemia 3. Chronic renal failure, on hemodialysis 35 total minutes floor time; including review of the patient's extensive laboratory and imaging testing. The patient had a recurrent spell witnessed by a nursing specialist today when going to the sink and taken off oxygen. She had a blank look and became decreased in responsiveness. When it was noted that she was off oxygen the pulse oximeter was placed and she was satting at around 86%. She was put back in oxygen and she had improved mental status. There is no convulsive activity, tongue injury or incontinence. Keppra level is therapeutic. No persistent focal deficits Recommend continued maximal medical therapy - as she is known to have mental status fluctuations in the setting of her underlying severe metabolic and medical problems in light of her underlying cerebral microvascular disease. We will continue to follow PRN. Please do not hesitate to call with any changes in neurologic status or any questions. Subjective: Somnolent confused no drift She had difficulty participating with exam Objective: Vital Signs Temp Pulse Resp BP Pulse Ox 36.9 C 85 20 173/80 H 100 08/02/17 08:00 08/02/17 15:56 08/02/17 15:56 08/02/17 15:56 08/02/17 15:56 Laboratory Results 08/01/17 04:10 08/02/17 05:00 08/01/17 08/02/17 08/03/17 05:59 05:59 05:59 Intake Total 900 450 Output Total 0 Balance 900 450 PT 13.4 SEC (12.0-15.0) 07/30/17 13:25 INR 1.00 (0.83-1.16) 07/30/17 13:25 Allergies/Adverse Reactions: meperidine HCl [From Demerol] Allergy (Intermediate, Verified 05/29/17 09:42) PARANOID, HALLUCINATIONS sulfamethoxazole [From Bactrim] Allergy (Verified 05/29/17 09:42) trimethoprim [From Bactrim] Allergy (Verified 05/29/17 09:42)
[2017-08-02] MEDS: ATORVASTATIN CALCIUM 10 MG TAB PO SCH (22:24)
[2017-08-02] MEDS: levETIRAcetam 500 MG TAB PO SCH (22:24)
[2017-08-02] MEDS: PREGABALIN 50 MG CAP PO SCH (22:25)
[2017-08-02] MEDS: LOSARTAN POTASSIUM 50 MG TAB PO SCH (22:28)
[2017-08-03] MEDS: SEVELAMER HCL 800 MG TAB PO SCH ×4 (04:13→18:17)
[2017-08-03 05:13] LABS: PLATELET COUNT 235 10^3/uL (150-400)
[2017-08-03] MEDS: HEPARIN 5,000 UNIT/0.5 ML SYR SC SCH ×3 (06:40→21:55)
[2017-08-03] MEDS: INSULIN LISPRO 100 UNIT/ML SC SCH ×5 (14:09→22:08)
[2017-08-03] MEDS: FAMOTIDINE 20 MG TAB PO SCH (14:11)
[2017-08-03] MEDS: FERROUS SULFATE 325 MG TAB PO SCH (14:11)
[2017-08-03] MEDS: ESCITALOPRAM OXALATE 10 MG TAB PO SCH (14:11)
[2017-08-03] MEDS: METOPROLOL TARTRATE 50 MG TAB PO SCH ×2 (14:11→22:00)
[2017-08-03] MEDS: ASPIRIN EC 325 MG TAB PO SCH (14:11)
--- NOTE | 2017-08-03 14:11 | HOSPPROG ---
Hospitalist Progress Note Assessment/Plan: Hospitalist Progress Note Assessment/Plan: 57F admitted with AMS d/t hypoxia. Hypoxia was d/t pulmonary edema. She has multiple medical problems. First encounter, chart reviewed. # acute encephalopathy - most likely related to hypoxia - appreciate neuro's assistance - no further w/u at this point - still not at baseline # pulmonary edema - unclear precipitant; she had not been to HD the day of presentation - better with volume removal with HD - CXR shows improved effusion and edema, personally reviewed # acute hypoxic resp failure - d/t pulm edema; improving # ESRD on HD - cont HD per renal - sevelamer # DM1 - she is very brittle and difficult to control - cont home glargine, SSI lispro # seizure disorder - keppra # htn - cont metop, amlodipine, losartan # depr - lexapro # bilat Charcot foot # anemia of CKD # dispo - possibly tomorrow if mental status is better; she lives at [facility] Subjective: Very hungry. No compliants. Feeling well after HD. Objective: Vital Signs Temp Pulse Resp BP Pulse Ox 36.6 C 86 16 115/64 92 08/03/17 12:06 08/03/17 12:06 08/03/17 12:06 08/03/17 12:06 08/03/17 12:06 Laboratory Results 08/03/17 04:30 08/03/17 04:30 08/02/17 08/03/17 08/04/17 05:59 05:59 05:59 Intake Total 450 240 Balance 450 240 PT 13.4 SEC (12.0-15.0) 07/30/17 13:25 INR 1.00 (0.83-1.16) 07/30/17 13:25 - Physical Exam Constitutional: appears nourished, not in pain, chronically ill appearing Eyes: PERRL, anicteric sclera, EOMI Ears, Nose, Mouth, Throat: moist mucous membranes, hearing normal, ears appear normal Cardiovascular: No JVD, No tachycardia, No edema Respiratory: no respiratory distress, no rales or rhonchi, reduced air movement Gastrointestinal: No tenderness, No ascites, No guarding Skin: warm, normal color, No mottled Musculoskeletal: normal joint ROM, no joint effusions, generalized weakness Psychiatric: not anxious, poor insight, poor judgement, poor memory ICD10 Worksheet Patient Problems: Problems Problem Status Onset Uremia Acute Influenza Acute Altered mental status Acute Pulmonary edema Acute Clostridium difficile infection Acute ~03/01/17 Dehydration Acute C. difficile diarrhea Acute ~12/16/16 Diabetic ketoacidosis Acute C. difficile diarrhea Acute ~07/29/16 ESRD (end stage renal disease) Acute
[2017-08-03] MEDS: INSULIN GLARGINE 100 UNITS/ML UNIT SC SCH ×3 (14:14→21:53)
--- NOTE | 2017-08-03 16:23 | SOAPPROG ---
SOAP Progress Note Assessment/Plan: Assessment: 1. Acute hypoxemic respiratory failure. Appears due to volume overload. Likely lost muscle weight. Improved with UF. 2. ESRD. HD done earlier today, tolerated well. Continue per MWF schedule. 3. AMS. CT neg for bleed/CVA. Suspect related to hypoxia, BS, BP fluctuations, lack of sleep. Does not appear to be having seizures. She gets very confused with minor insults due to microvascular/white matter brain disease. Seems to be clear tonight. 4.IDDM. Brittle BS control which is her baseline. Low BSs in am. Reduced hs lantus slightly until eating better. 5. Dispo. Back to [facility] soon. Plan: 08/01/17 18:02 08/02/17 13:03 08/02/17 13:09 08/02/17 13:11 08/03/17 16:19 Subjective: Confused this am but feels back to normal now. No diarrhea. Objective: Vital Signs Temp Pulse Resp BP Pulse Ox 36.6 C 86 16 115/64 92 08/03/17 12:06 08/03/17 12:06 08/03/17 12:06 08/03/17 12:06 08/03/17 12:06 Laboratory Results 08/03/17 04:30 08/03/17 04:30 08/02/17 08/03/17 08/04/17 05:59 05:59 05:59 Intake Total 450 240 Balance 450 240 PT 13.4 SEC (12.0-15.0) 07/30/17 13:25 INR 1.00 (0.83-1.16) 07/30/17 13:25 RRR, no m/g/r CTAB Abdom soft, nontender No edema L arm avf, good thrill MSE: Clear, alert. ICD10 Worksheet Patient Problems: Problems Problem Status Onset Uremia Acute Influenza Acute Altered mental status Acute Pulmonary edema Acute Clostridium difficile infection Acute ~03/01/17 Dehydration Acute C. difficile diarrhea Acute ~12/16/16 Diabetic ketoacidosis Acute C. difficile diarrhea Acute ~07/29/16 ESRD (end stage renal disease) Acute
[2017-08-03] MEDS: ACETAMINOPHEN 325 MG TAB PO PRN (18:17)
[2017-08-03] MEDS ORDERED: LIDOCAINE 1% *Not for Epidural 20 ML MDV ONE (18:44)
[2017-08-03] MEDS: PREGABALIN 50 MG CAP PO SCH (21:56)
[2017-08-03] MEDS: levETIRAcetam 500 MG TAB PO SCH (21:56)
[2017-08-03] MEDS: LOSARTAN POTASSIUM 50 MG TAB PO SCH (21:59)
[2017-08-03] MEDS: ATORVASTATIN CALCIUM 10 MG TAB PO SCH (21:59)
[2017-08-04] MEDS: HEPARIN 5,000 UNIT/0.5 ML SYR SC SCH ×3 (06:06→22:41)
[2017-08-04] MEDS: INSULIN LISPRO 100 UNIT/ML SC SCH ×4 (07:51→22:40)
[2017-08-04] MEDS: METOPROLOL TARTRATE 50 MG TAB PO SCH ×2 (09:31→22:39)
[2017-08-04] MEDS: INSULIN GLARGINE 100 UNITS/ML UNIT SC SCH ×2 (09:31→22:38)
[2017-08-04] MEDS: SEVELAMER HCL 800 MG TAB PO SCH ×3 (09:31→17:49)
[2017-08-04] MEDS: FAMOTIDINE 20 MG TAB PO SCH (09:31)
[2017-08-04] MEDS: ESCITALOPRAM OXALATE 10 MG TAB PO SCH (09:32)
[2017-08-04] MEDS: ASPIRIN EC 325 MG TAB PO SCH (09:32)
[2017-08-04] MEDS: FERROUS SULFATE 325 MG TAB PO SCH (09:32)
--- NOTE | 2017-08-04 12:42 | HOSPPROG ---
Hospitalist Progress Note Assessment/Plan: 57F admitted with AMS d/t hypoxia. Hypoxia was d/t pulmonary edema. She has multiple medical problems. First encounter, chart reviewed. Reviewed her care with Dr Purvis. # acute encephalopathy - most likely related to hypoxia - appreciate neuro's assistance - no further w/u at this point -this is likely her baseline -CT of head is negative -gets very confused at baseline due to microvascular disease # pulmonary edema - unclear precipitant; she had not been to HD the day of presentation - better with volume removal with HD - CXR shows improvement # acute hypoxic resp failure - resolved # ESRD on HD - cont HD per renal # Brittle DM1 - cont home glargine, SSI lispro # seizure disorder - keppra -she has episodes of spells where she isn't interactive and then returns to baseline, not a seizure per neurology # htn - cont metop, amlodipine, losartan # depression - lexapro # bilat Charcot foot # anemia of CKD #diarrhea -this was told to me by the patient, nursing staff hasn't seen -will monitor overnight #Plan: dc back to [facility] in the morning if stable, recommending a Palliative care evaluation of the patient when she returns to her living situation. Subjective: Lennox has no complaints except for some diarrhea. Objective: Vital Signs Temp Pulse Resp BP Pulse Ox 36.5 C 62 16 170/90 H 93 08/04/17 07:36 08/04/17 07:36 08/04/17 07:36 08/04/17 07:36 08/04/17 07:36 Laboratory Results 08/03/17 04:30 08/03/17 04:30 08/03/17 08/04/17 08/05/17 05:59 05:59 05:59 Intake Total 240 1600 Balance 240 1600 PT 13.4 SEC (12.0-15.0) 07/30/17 13:25 INR 1.00 (0.83-1.16) 07/30/17 13:25 - Physical Exam Constitutional: no apparent distress, appears nourished, chronically ill appearing Eyes: PERRL Ears, Nose, Mouth, Throat: hearing normal Cardiovascular: regular rate and rhythym Respiratory: no respiratory distress Gastrointestinal: normoactive bowel sounds Skin: warm Neurologic: other (alert but is somewhat childlike when I ask her questions, knows where she is and where she lives.) Psychiatric: interacting appropriately, poor insight, poor judgement ICD10 Worksheet Patient Problems: Problems Problem Status Onset Altered mental status Acute Pulmonary edema Acute C. difficile diarrhea Acute ~07/29/16 C. difficile diarrhea Acute ~12/16/16 Clostridium difficile infection Acute ~03/01/17 Dehydration Acute Diabetic ketoacidosis Acute ESRD (end stage renal disease) Acute Influenza Acute Uremia Acute
--- NOTE | 2017-08-04 14:29 | NEUROPROG ---
Assessment: 1. Acute mental status changes 2. Acute hypoxemia 3. Chronic renal failure, on hemodialysis I was called by nursing emergently while of his on the floor to evaluate the patient for a recurrent spells. The patient had her typical spell of brief encephalopathy where she loses interaction with the environment for a few seconds and then is back to normal. She does have loss of axial muscle tone in her upper trunk with this. This is typical for her per Nephrology. There was no convulsive movement. No tonic-clonic activity. No tongue biting or incontinence. Overall, based on her past history based on observation is from her other providers, this is more likely to be a indeterminate/nonspecific metabolic encephalopathy type spell rather than seizure. Specifically, I would not treat this as acute seizures with p.r.n. Benzodiazepines or increasing her Keppra. As this would likely just worsen her baseline mentation. If these recur, the best would be to observe them and prevent any kind of fall. If she has a convulsive seizure with tonic-clonic activity, then using p.r.n. Benzodiazepines would be reasonable. No further recommendations now. She can continue Keppra 500 mg daily. We will continue to follow up p.r.n. Please do not hesitate to call with any questions or changes in neurologic status with this pleasant patient Subjective: Called emergently to evaluate spell Objective: Vital Signs Temp Pulse Resp BP Pulse Ox 36.5 C 62 16 170/90 H 93 08/04/17 07:36 08/04/17 07:36 08/04/17 07:36 08/04/17 07:36 08/04/17 07:36 Laboratory Results 08/03/17 04:30 08/03/17 04:30 08/03/17 08/04/17 08/05/17 05:59 05:59 05:59 Intake Total 240 1600 Balance 240 1600 PT 13.4 SEC (12.0-15.0) 07/30/17 13:25 INR 1.00 (0.83-1.16) 07/30/17 13:25 Patient was sitting in a chair slumped forward for a few seconds and then immediately opened eyes and was able to speak to me and repeat sentences accurately. No convulsive movements. No tonic or clonic activity. No tongue biting. No incontinence . no overt seizure activity Allergies/Adverse Reactions: meperidine HCl [From [employer]] Allergy (Intermediate, Verified 05/29/17 09:42) PARANOID, HALLUCINATIONS sulfamethoxazole [From Bactrim] Allergy (Verified 05/29/17 09:42) trimethoprim [From Bactrim] Allergy (Verified 05/29/17 09:42)
--- NOTE | 2017-08-04 16:36 | SOAPPROG ---
SOAP Progress Note Assessment/Plan: Assessment: 1. Acute hypoxemic respiratory failure. Appears due to volume overload. Likely lost muscle weight. Improved with UF. 2. ESRD. HD well tolerated yesterday. Continue per MWF schedule. 3. AMS. CT neg for bleed/CVA. Suspect related to hypoxia, BS, BP fluctuations, lack of sleep. Does not appear to be having seizures. She gets very confused with minor insults due to microvascular/white matter brain disease. Seems to be clear today 4.IDDM. Brittle BS control which is her baseline. Low BSs in am. Reduced hs lantus slightly until eating better. 5. Dispo. Back to [facility] soon. Plan: 08/04/17 16:34 08/04/17 16:35 Subjective: Reports feeling well, no c/o. Objective: Vital Signs Temp Pulse Resp BP Pulse Ox 36.7 C 74 16 112/61 85 L 08/04/17 16:00 08/04/17 16:00 08/04/17 16:00 08/04/17 16:00 08/04/17 16:00 Laboratory Results 08/03/17 04:30 08/03/17 04:30 08/03/17 08/04/17 08/05/17 05:59 05:59 05:59 Intake Total 240 1600 Balance 240 1600 PT 13.4 SEC (12.0-15.0) 07/30/17 13:25 INR 1.00 (0.83-1.16) 07/30/17 13:25 Physical Exam - Physical Exam General Appearance: WD/WN Respiratory: lungs clear Cardiac/Chest: regular rate, rhythm Abdomen: non-tender Extremities: other ( LUE AVF +br/thrill), No swelling ICD10 Worksheet Patient Problems: Problems Problem Status Onset Altered mental status Acute Pulmonary edema Acute C. difficile diarrhea Acute ~07/29/16 C. difficile diarrhea Acute ~12/16/16 Clostridium difficile infection Acute ~03/01/17 Dehydration Acute Diabetic ketoacidosis Acute ESRD (end stage renal disease) Acute Influenza Acute Uremia Acute
[2017-08-04] MEDS: ATORVASTATIN CALCIUM 10 MG TAB PO SCH (22:38)
[2017-08-04] MEDS: levETIRAcetam 500 MG TAB PO SCH (22:38)
[2017-08-04] MEDS: LOSARTAN POTASSIUM 50 MG TAB PO SCH (22:39)
[2017-08-04] MEDS: PREGABALIN 50 MG CAP PO SCH (22:40)
[2017-08-05] MEDS: HEPARIN 5,000 UNIT/0.5 ML SYR SC SCH ×3 (06:15→22:10)
[2017-08-05] MEDS: INSULIN LISPRO 100 UNIT/ML SC SCH ×3 (09:17→17:34)
--- NOTE | 2017-08-05 09:35 | HOSPPROG ---
Hospitalist Progress Note Assessment/Plan: 57F admitted with AMS d/t hypoxia. Hypoxia was d/t pulmonary edema. She has multiple medical problems. Came to evaluate patient this morning, she has the blank stare and not interacting, Concerned with her low glucose and having loose stools, will start IV fluids after nursing gets an IV in. # acute encephalopathy - most likely related to hypoxia - during my evaluation this morning patient had another bout where she is staring and not interacting -could be affected by her glucoses which were low this morning -will give her IV fluids -if she does not improve after this will get a CT of her head # pulmonary edema - unclear precipitant; she had not been to HD the day of presentation - better with volume removal with HD - CXR shows improvement # acute hypoxic resp failure - resolved # ESRD on HD - cont HD per renal # Brittle DM1 - cont home glargine, SSI lispro # seizure disorder - Keppra -she has episodes of spells where she isn't interactive and then returns to baseline, not a seizure per neurology # htn - cont metop, amlodipine, losartan # depression - lexapro # bilat Charcot foot # anemia of CKD #diarrhea -having multiple episodes #Plan: patient is minimally interacting, will give fluids and see if this helps with her mentation Subjective: Asher is staring off when I evaluated her. Objective: Vital Signs Temp Pulse Resp BP Pulse Ox 36.8 C 67 16 115/70 94 08/05/17 07:45 08/05/17 07:45 08/05/17 07:45 08/05/17 07:45 08/05/17 07:45 Laboratory Results 08/03/17 04:30 08/03/17 04:30 08/04/17 08/05/17 08/06/17 05:59 05:59 05:59 Intake Total 1600 400 Output Total 200 Balance 1600 200 PT 13.4 SEC (12.0-15.0) 07/30/17 13:25 INR 1.00 (0.83-1.16) 07/30/17 13:25 - Physical Exam Cardiovascular: regular rate and rhythym Respiratory: no respiratory distress Skin: warm Neurologic: other (staring off) Psychiatric: encephalopathic, No interacting appropriately ICD10 Worksheet Patient Problems: Problems Problem Status Onset Altered mental status Acute Pulmonary edema Acute C. difficile diarrhea Acute ~07/29/16 C. difficile diarrhea Acute ~12/16/16 Clostridium difficile infection Acute ~03/01/17 Dehydration Acute Diabetic ketoacidosis Acute ESRD (end stage renal disease) Acute Influenza Acute Uremia Acute
[2017-08-05] MEDS ORDERED: D5W 1/2 NS 500 ML IV SCH (09:45)
[2017-08-05] MEDS: FAMOTIDINE 20 MG TAB PO SCH (10:22)
[2017-08-05] MEDS: ESCITALOPRAM OXALATE 10 MG TAB PO SCH (10:22)
[2017-08-05] MEDS: METOPROLOL TARTRATE 50 MG TAB PO SCH ×2 (10:22→20:14)
[2017-08-05] MEDS: FERROUS SULFATE 325 MG TAB PO SCH (10:22)
[2017-08-05] MEDS: ASPIRIN EC 325 MG TAB PO SCH (10:24)
[2017-08-05] MEDS: INSULIN GLARGINE 100 UNITS/ML UNIT SC SCH (10:24)
[2017-08-05] MEDS: SEVELAMER HCL 800 MG TAB PO SCH ×3 (10:25→17:35)
--- NOTE | 2017-08-05 11:29 | SOAPPROG ---
SOAP Progress Note Assessment/Plan: Assessment: 1. Acute hypoxemic respiratory failure. Appears due to volume overload. Likely lost muscle weight. Improved with UF. 2. ESRD. Continue per MWF schedule. -AVF appears patent 3. AMS. CT neg for bleed/CVA. Suspect related to hypoxia, BS, BP fluctuations, lack of sleep. Does not appear to be having seizures. She gets very confused with minor insults due to microvascular/white matter brain disease.Acting lethargic today but conversant, apparently had staring spell this morning when interviewed by hospitalist, possibly due to relative hypoglycemia 4. IDDM. Brittle BS control which is her baseline. Low BSs in am. Reduced hs lantus slightly until eating better. 5. Dispo. Back to [facility] soon. Plan: 08/05/17 11:27 Subjective: Pt denies complaint. Objective: Vital Signs Temp Pulse Resp BP Pulse Ox 36.8 C 69 16 125/79 H 97 08/05/17 07:45 08/05/17 09:49 08/05/17 09:49 08/05/17 10:22 08/05/17 09:49 Laboratory Results 08/03/17 04:30 08/03/17 04:30 08/04/17 08/05/17 08/06/17 05:59 05:59 05:59 Intake Total 1600 400 Output Total 200 Balance 1600 200 PT 13.4 SEC (12.0-15.0) 07/30/17 13:25 INR 1.00 (0.83-1.16) 07/30/17 13:25 Physical Exam - Physical Exam General Appearance: WD/WN Respiratory: chest non-tender, normal breath sounds Cardiac/Chest: regular rate, rhythm Abdomen: non-tender, soft Extremities: No swelling Neuro/Psych: alert (mildly lethargic), other (thought she was at dialysis, but I told her I'm the dialysis doctor) ICD10 Worksheet Patient Problems: Problems Problem Status Onset Altered mental status Acute Pulmonary edema Acute C. difficile diarrhea Acute ~07/29/16 C. difficile diarrhea Acute ~12/16/16 Clostridium difficile infection Acute ~03/01/17 Dehydration Acute Diabetic ketoacidosis Acute ESRD (end stage renal disease) Acute Influenza Acute Uremia Acute
[2017-08-05] MEDS ORDERED: INSULIN GLARGINE 100 UNITS/ML UNIT SC SCH (11:33)
--- NOTE | 2017-08-05 11:54 | ASMTCMCOM ---
CM Note CM Note Notes: Patient to return to [facility] on discharge. Patient has developed diarrhea, [facility] reports that she has chronic c-diff. Date Signed: 08/05/2017 11:53 AM Electronically Signed By:Loraine Valera LCSW
[2017-08-05] MEDS: levETIRAcetam 500 MG TAB PO SCH (20:14)
[2017-08-05] MEDS: LOSARTAN POTASSIUM 50 MG TAB PO SCH (20:15)
[2017-08-05] MEDS: ATORVASTATIN CALCIUM 10 MG TAB PO SCH (20:16)
[2017-08-05] MEDS: PREGABALIN 50 MG CAP PO SCH (20:17)
[2017-08-06] MEDS: HEPARIN 5,000 UNIT/0.5 ML SYR SC SCH ×2 (05:13→14:43)
[2017-08-06 07:43] VITALS: BP 157/75
[2017-08-06] MEDS ORDERED: LIDOCAINE 1% *Not for Epidural 20 ML MDV ONE (08:00)
[2017-08-06] MEDS: FERROUS SULFATE 325 MG TAB PO SCH (08:31)
[2017-08-06] MEDS: METOPROLOL TARTRATE 50 MG TAB PO SCH (08:32)
[2017-08-06] MEDS: SEVELAMER HCL 800 MG TAB PO SCH ×2 (08:32→12:18)
[2017-08-06] MEDS: ESCITALOPRAM OXALATE 10 MG TAB PO SCH (08:32)
[2017-08-06] MEDS: INSULIN GLARGINE 100 UNITS/ML UNIT SC SCH ×2 (08:33→09:59)
[2017-08-06] MEDS: ASPIRIN EC 325 MG TAB PO SCH (08:33)
[2017-08-06] MEDS: FAMOTIDINE 20 MG TAB PO SCH (09:02)
[2017-08-06] MEDS: INSULIN LISPRO 100 UNIT/ML SC SCH ×2 (10:00→12:20)
[2017-08-06] MEDS: VANCOMYCIN 125 MG/2.5 ML UDL PO SCH ×2 (12:17→12:19)
--- NOTE | 2017-08-06 12:18 | HOSPPROG ---
Hospitalist Progress Note Assessment/Plan: 57F admitted with AMS d/t hypoxia. Hypoxia was d/t pulmonary edema. She has multiple medical problems. 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 Objective: Vital Signs Temp Pulse Resp BP Pulse Ox 36.7 C 68 16 157/75 H 95 08/06/17 07:29 08/06/17 07:29 08/06/17 07:29 08/06/17 07:29 08/06/17 07:29 Microbiology 08/06/17 05:30 Gastrointestinal Tract Panel (PCR) - Final Stool Clostridium Difficile Detected Laboratory Results 08/03/17 04:30 08/03/17 04:30 08/05/17 08/06/17 08/07/17 05:59 05:59 05:59 Intake Total 400 300 Output Total 200 250 Balance 200 50 PT 13.4 SEC (12.0-15.0) 07/30/17 13:25 INR 1.00 (0.83-1.16) 07/30/17 13:25 - Physical Exam Constitutional: not in pain, chronically ill appearing Eyes: PERRL Ears, Nose, Mouth, Throat: hearing normal Respiratory: no respiratory distress Skin: warm, No normal color (pale) Musculoskeletal: generalized weakness Neurologic: other (alert and conversant) Psychiatric: interacting appropriately, poor insight, poor judgement ICD10 Worksheet Patient Problems: Problems Problem Status Onset Altered mental status Acute Pulmonary edema Acute C. difficile diarrhea Acute ~07/29/16 C. difficile diarrhea Acute ~12/16/16 Clostridium difficile infection Acute ~03/01/17 Dehydration Acute Diabetic ketoacidosis Acute ESRD (end stage renal disease) Acute Influenza Acute Uremia Acute
--- NOTE | 2017-08-06 13:32 | PDIAF ---
- Diagnosis Diagnosis: acute pulmonary edema, acute encephalopathy, ESRD, DM1 (brittle) Code Status: Full Code - Medication Management Discharge Medications: Medications to Continue on Transfer Acetaminophen [Tylenol 325mg (*)] 650 mg PO Q8 PRN 09/20/16 [Last Taken Unknown] Aspirin EC [Aspirin EC 81 mg (*)] 81 mg PO DAILY 09/20/16 [Last Taken 07/29/17] Famotidine [Pepcid 20 MG (*)] 20 mg PO DAILY 09/20/16 [Last Taken 07/29/17] Ferrous Sulfate [Ferrous Sulf 325 MG (*)] 325 mg PO DAILY 09/20/16 [Last Taken 07/29/17] Herbals/Supplements -Info Only 1 ea PO DAILY 09/20/16 [Last Taken Unknown] Insulin Lispro [Humalog] 4 unit SQ TID 09/20/16 [Last Taken 07/29/17 16:00] Losartan Potassium [Cozaar] 100 mg PO HS 09/20/16 [Last Taken 07/29/17] Polyethylene Glycol 3350 [Miralax 17 gm (*)] 17 gm PO DAILY PRN 09/20/16 [Last Taken 05/20/17] Pregabalin [Lyrica 50mg (*)] 50 mg PO HS 09/20/16 [Last Taken 07/29/17] Simvastatin [Zocor] 20 mg PO HS 09/20/16 [Last Taken 07/29/17] levETIRAcetam [Keppra 500 mg (*)] 500 mg PO HS 09/20/16 [Last Taken 07/29/17] Acetaminophen [Tylenol ES 500 mg (*)] 1,000 mg PO MWF@12 12/15/16 [Last Taken ] Escitalopram Oxalate [Lexapro 10 MG] 10 mg PO DAILY 12/15/16 [Last Taken ] Hydrocodone/Acetaminophen [Wiergate 5/325 (*)] 1 tab PO Q4HRS PRN 12/15/16 [Last Taken 05/20/17] Sodium Polystyrene Sulfonate 15 gm PO DAILY PRN 02/27/17 [Last Taken 05/26/17] Promethazine HCl [Phenergan 25mg (*)] 25 mg PO Q4HRS PRN 04/12/17 [Last Taken Unknown] Bisacodyl [Dulcolax] 10 mg RC DAILY PRN 05/29/17 [Last Taken Unknown] Metoprolol Tartrate [Lopressor 50 mg (*)] 50 mg PO BID 05/29/17 [Last Taken ] Sennosides/Docusate Sodium [Senna-S Tablet] 1 each PO BID PRN 05/29/17 [Last Taken Unknown] Albuterol [Proventil Neb] 3 ml IH Q6H PRN 07/30/17 [Last Taken Unknown] Hydrocodone/Acetaminophen [Wiergate 5/325 (*)] 2 each PO Q4H PRN 07/30/17 [Last Taken 07/24/17] Sevelamer Carbonate [Renvela] 800 mg PO TID 07/30/17 [Last Taken 07/29/17 17:00] amLODIPine BESYLATE [Norvasc 2.5 mg (*)] 2.5 mg PO HS 07/30/17 [Last Taken 07/29] Acetaminophen [Tylenol 325mg (*)] 325 - 650 mg PO Q6 PRN tab 08/06/17 [Last Taken Unknown] Acetaminophen [Tylenol Rectal] 650 mg WI Q4HRS PRN supp 08/06/17 [Last Taken Unknown] Insulin Glargine [Lantus Syringe] 2 units SC HS unit 08/06/17 [Last Taken Unknown] Insulin Glargine [Lantus Syringe] 6 units SC DAILY unit 08/06/17 [Last Taken Unknown] Vancomycin [Vancocin Oral Liquid] 125 mg PO QID #125 udl 08/06/17 [Last Taken Unknown] Prison Antibiotics: oral vancomycin 125 mg qid [employer] Antibiotic Stop Date: 08/15/17 Discharge Medications: Refer to the Discharge Home Medication list for PRN reason. - Orders Services needed: Registered Nurse, Physical Therapy, Occupational Therapy Isolation Type: CDIFF Isolation, None Diet Texture: Dysphagia 2 - Mechanically Altered - Chopped, Ground, Thin Liquids , Meds Whole in Puree, Meds Crushed in Puree - Follow Up Care Current Providers and Referrals: Patient,NotPresent [Unknown] - As per Instructions Shakir Purvis MD [Medical Doctor] -
--- NOTE | 2017-08-06 13:39 | SOAPPROG ---
SOAP Progress Note Assessment/Plan: Assessment: 1. esrd: hd today on typical [facility] schedule. 2. ams: resolved, presumably due to hypoxemia. 3. C Diff: on po vanco Plan: 08/06/17 13:38 Subjective: Seen on hd. No particular c/o, planning on d/c later today after hd. Objective: Vital Signs Temp Pulse Resp BP Pulse Ox 36.7 C 68 16 157/75 H 95 08/06/17 07:29 08/06/17 07:29 08/06/17 07:29 08/06/17 07:29 08/06/17 07:29 Microbiology 08/06/17 05:30 Gastrointestinal Tract Panel (PCR) - Final Stool Clostridium Difficile Detected Laboratory Results 08/03/17 04:30 08/03/17 04:30 08/05/17 08/06/17 08/07/17 05:59 05:59 05:59 Intake Total 400 300 Output Total 200 250 Balance 200 50 PT 13.4 SEC (12.0-15.0) 07/30/17 13:25 INR 1.00 (0.83-1.16) 07/30/17 13:25 Physical Exam - Physical Exam General Appearance: no apparent distress ICD10 Worksheet Patient Problems: Problems Problem Status Onset Altered mental status Acute Pulmonary edema Acute C. difficile diarrhea Acute ~07/29/16 C. difficile diarrhea Acute ~12/16/16 Clostridium difficile infection Acute ~03/01/17 Dehydration Acute Diabetic ketoacidosis Acute ESRD (end stage renal disease) Acute Influenza Acute Uremia Acute
--- NOTE | 2017-08-06 13:49 | ASMTLACE ---
ADONIS Length of stay for Answers: 7-13 days current admission Acuity / Level of Answers: Yes Care: Did the patient have an inpatient admission? Comorbidities - select Answers: Diabetes (uncontrolled or all that apply controlled) Moderate or severe liver or renal disease Opioid dependence / Chronic pain Other Notes: HTN, Seizure disorder # of Emergency department Answers: 3-4 visits in the last 6 months Social determinants Answers: Mental health diagnosis (anxiety, depression, pers onality disorders, etc.) Score: 24 Date Signed: 08/06/2017 01:49 PM Electronically Signed By:Carrol Ennis RN
--- NOTE | 2017-08-06 14:13 | ASMTCMCOM ---
CM Note CM Note Notes: Chart reviewed. Medically cleared for dc back to [facility]. Final orders via allscripts. Call placed to Barbara at 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 RN aware of report number to call. Plan: to [facility] Date Signed: 08/06/2017 02:13 PM Electronically Signed By:Carrol Ennis RN
[2017-08-06] MEDS: ACETAMINOPHEN 325 MG TAB PO PRN (14:43)
--- NOTE | 2017-08-06 18:55 | GDS ---
[f rep st] DISCHARGE SUMMARY DISCHARGE DIAGNOSES: 1. Acute encephalopathy. 2. Acute pulmonary edema. 3. Acute hypoxemic respiratory failure. 4. End-stage renal disease, on hemodialysis. 5. Clostridium difficile with a history of chronic Clostridium difficile. 6. Brittle diabetic type 1. 7. Seizure disorder. 8. Hypertension. 9. Depression. 10. Bilateral Charcot foot. 11. Anemia of chronic disease. CONSULTATION: 1. Dr. Clement Shook. 2. Dr. Renetta Rosario. 3. Dr. Shakir Purvis. BRIEF HISTORY: The patient is a 57-year-old female with a history of end-stage renal disease, dialysis dependent, as well as a seizure disorder, hypertension, diabetes. She presented to the emergency department via EMS after she was found at [facility] with altered mental status and oxygen saturation of 64%. There was no witnessed seizure activity. There was concern for focal sided right weakness and Stroke Alert was called. She was evaluated by [facility] who did not feel she warranted tPA. Her chest x-ray was consistent with pulmonary edema. She was evaluated by Neurology on her admission. They noted that her altered mental status was toxic metabolic type encephalopathy due to her multiple medical problems with some decompensation. Of note, throughout her stay she has had multiple episodes where she stares off and is nonresponsive and then several minutes later, she becomes more responsive. Reviewed this with Neurology, they are doubtful that this is any type of seizure. Per Nephrology, who knows the patient well, they noted that it takes very little to get her confused with minor insults due to the microvascular white matter brain disease. Today, she finished dialysis. Her vital signs are overall stable. She will be discharged back to her long-term care facility. Also of note, she had diarrhea. She has a history of chronic C diff. She is on oral vancomycin. HOSPITAL COURSE PER PROBLEM: 1. Acute encephalopathy. This is intermittent. Her level of consciousness varies throughout the day, depending on if she is getting dialysis or if her blood sugar is low. She was back to her baseline on discharge. 2. Pulmonary edema. She did not get hemodialysis on the day of presentation. She was better with volume removal with hemodialysis. Her chest x-ray showed improvement. 3. Acute hypoxemic respiratory failure, resolved. 4. End-stage renal disease, dialysis today. 5. Clostridium difficile. She has a history of chronic Clostridium difficile, on oral vancomycin. 6. Brittle diabetic type 1. Continue her home regimen. 7. Seizure disorder, on Keppra. 8. Hypertension, on metoprolol, amlodipine and losartan. 9. Depression, on Lexapro. 10. Bilateral Charcot foot. Does well overall, getting up and down. 11. Anemia. This is due to chronic disease. DISCHARGE CONDITION: Stable. Blood pressure is 157/75, heart rate is 68, respiratory rate is 16, O2 saturation on room air 94%, temperature is 36.8 Celsius. MEDICATIONS AT DISCHARGE: Please see the EMR. DISCHARGE INSTRUCTIONS: 1. Recommending at the longterm, to consider palliative care. The patient has been declining per her sister over this past year. 2. Continue dialysis per Nephrology. 3. If she develops fever, chills, chest pain, shortness of breath or ongoing confusion, to return to the emergency room. Greater than 30 minutes spent discharging and coordinating care. /[id number]/MODL MTDD
--- NOTE | 2017-08-07 11:06 | ASDISCHSUM ---
Discharge Information Plan Status:SNF Medically Cleared to Leave:08/06/2017 Discharge Date:08/06/2017 03:14 PM CM D/C Disposition:Residential Facility ADT D/C Disposition:Residential Facility Projected Discharge Date:08/01/2017 11:00 AM Transportation at D/C:Wheelchair Van Discharge Delay Reason: Follow-Up Date:08/01/2017 11:00 AM Discharge Slot: Final Diagnosis:AMS, Hypoxemia, end stage renal dis Placement Information Referral Type:*Prison/SNF Referral ID:[facility]-[id number] Provider Name:[facility] Address 1:[address] Address 2: City:[place] Selection Factors: State:[place] Patient Contact Information Contact Name:HARMAN Relationship:Sister Address:[address] [place] [address] Work Phone: City:[place] Alternate Phone: State/Zip Code:[place] [address] Email: Financial Information Financial Class:Medicare Primary Plan Desc:MEDICARE INPATIENT Primary Plan Number:[id number] Secondary Plan Desc:MED[place] Secondary Plan Number:[id number] Assessment Information LACE LACE Length of stay for Answers: 7-13 days current admission Acuity / Level of Answers: Yes Care: Did the patient have an inpatient admission? Comorbidities - select Answers: Diabetes (uncontrolled or all that apply controlled) Moderate or severe liver or renal disease Opioid dependence / Chronic pain Other Notes: HTN, Seizure disorder # of Emergency department Answers: 3-4 visits in the last 6 months Social determinants Answers: Mental health diagnosis (anxiety, depression, pers onality disorders, etc.) Score: 24 Date Signed: 08/06/2017 01:49 PM Electronically Signed By:Carrol Ennis RN [facility] CM Progress Note CM Note CM Note Notes: 57yr old female admitted from [facility] for AMS, Hypoxemia, end stage renal dis. Patient has a Hx of DM, SZ diso, endocarditis, HTN, Depression, Charcot foot, Chronic pain, Anemia. Stroke was ruled out. She will return to [facility] on discharge. Date Signed: 07/31/2017 01:50 PM Electronically Signed By:Loraine Valera LCSW [facility] CM Progress Note CM Note CM Note Notes: Patient to return to [facility] on discharge. Patient has developed diarrhea, [facility] reports that she has chronic c-diff. Date Signed: 08/05/2017 11:53 AM Electronically Signed By:Loraine Valera LCSW [facility] CM Progress Note CM Note CM Note Notes: Chart reviewed. Medically cleared for dc back to [facility]. Final orders via allscripts. 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 RN aware of report number to call. Plan: to [facility] Date Signed: 08/06/2017 02:13 PM Electronically Signed By:Carrol Ennis RN Intervention Information
== END 2017-08-06 15:14 | DRG 189 ==
LOC: EDUNIT# → F2N 17:11 → F3N 08-02 16:28
PROVIDERS: ADMIT Hospitalist; ATTEND Hospitalist
PROC: 02HV33Z Insertion of Infusion Device into Superior Vena Cava, Percutaneous Approach (ICD-10-PCS; principal; 2017-07-30)
PROC: 5A1D70Z Performance of Urinary Filtration, Intermittent, Less than 6 Hours Per Day (ICD-10-PCS; 2017-07-30)
DX: J81.0 Acute pulmonary edema (principal); G92 Toxic encephalopathy; J96.01 Acute respiratory failure with hypoxia; E10.22 Type 1 diabetes mellitus with diabetic chronic kidney disease; E10.610 Type 1 diabetes mellitus with diabetic neuropathic arthropathy; I12.0 Hypertensive chronic kidney disease with stage 5 chronic kidney disease or end stage renal disease; N18.6 End stage renal disease; D63.1 Anemia in chronic kidney disease; R19.7 Diarrhea, unspecified; R56.9 Unspecified convulsions; Z99.2 Dependence on renal dialysis; Z87.891 Personal history of nicotine dependence
CPT/HCPCS: 80177-90; 82947-QW; 92523-GN; 92526-GN; 92610-GN; 97116-GP; 97161-GP; 97166-GO; 97530-GP; 97535-GO; C1751; G8978-GP-CK; G8979-GP-CI; G8987-GO-CK; G8988-GO-CI; G8996-GN-CJ; G8997-GN-CI; G9168-GN-CJ; G9169-GN-CJ; G9170-GN-CJ; J0885; J1644; J1815; J1940; J1953; J2405; J2550; Q9967